=== PATIENT | female | born 1955 | race Caucasian/White ===

== ENCOUNTER 2019-05-28 11:26 | Emergency (ER) | payer MEDICARE, SELFPAY ==
[2019-05-28 11:44] VITALS: BP 123/72; PULSE 120; RESP 16; TEMP 38; O2SAT 98
--- NOTE | 2019-05-28 11:44 | ED.GENADULT ---
HPI - General Adult General Chief complaint: Upper Respiratory Infection Stated complaint: Congestion Time Seen by Provider: 05/28/19 11:45 Source: patient and RN notes reviewed Mode of arrival: ambulatory Limitations: no limitations History of Present Illness HPI narrative: 63-year-old female presents with complains of upper respiratory symptoms, sinus congestion and pressure, and dry cough for the past 7 days. No treatment. Symptom increase within the last 24 hours with tactile fever, sore throat, and constant dry cough. Rhinorrhea and nasal congestion. Sore throat bilateral. Hurts to swallow. No voice change. Tactile fevers without chills. No drooling, neck, or throat swelling. No chest pain, wheezing, or shortness of breath. No exacerbation factors. Denies nausea, vomiting, and abdominal pain. Tolerating liquids well. Menopausal. Some parts of this dictation were generated by voice recognition software and may contain typographical and/or grammatical inaccuracies. Related Data Home Medications Medication Instructions Recorded Confirmed atorvastatin 40 mg tablet 40 mg PO DAILY 03/04/19 05/28/19 ibandronate 150 mg tablet 150 mg PO MONTHLY 03/04/19 05/28/19 levothyroxine 175 mcg tablet 175 mcg PO DAILY 03/04/19 05/28/19 lisinopril 10 mg tablet 10 mg PO DAILY 03/04/19 05/28/19 metformin 500 mg tablet See Rx Instructions PO .COMPLEX 03/04/19 05/28/19 venlafaxine 75 mg capsule,extended 75 mg PO DAILY 03/04/19 05/28/19 release 24 hr ergocalciferol (vitamin D2) 50,000 unit WEEKLY 05/28/19 05/28/19 [Vitamin D2] Allergies Allergy/AdvReac Type Severity Reaction Status Date / Time Penicillins Allergy Unknown Rash Verified 05/28/19 11:32 Review of Systems Review of Systems: Narrative: CONSTITUTIONAL: Complains of fever. Denies chills, sweats. EYES: Denies visual changes, redness, discharge. ENT: Denies rhinorrhea, congestion, facial congestion and pressure, sore throat. Denies otalgia. CARDIOVASCULAR: Denies chest pain, palpitations, edema. RESPIRATORY: Denies dyspnea, wheezing. Complains of dry cough. GASTROINTESTINAL: Denies abdominal pain, nausea, vomiting, diarrhea. GENITOURINARY: Denies dysuria, hematuria, abnormal discharge. SKIN: Denies rash or itching. MUSCULOSKELETAL: Denies acute back pain, joint pain. Complains of myalgia. NEUROLOGIC: Denies numbness or focal weakness. PSYCHIATRIC: Denies anxiety or depression. All systems reviewed & are unremarkable except as noted in HPI and below. [facility] Past Medical History Medical History (Updated 06/05/19 @ 23:02 by JING Perez) delivery delivered Dyslipidemia Essential hypertension History of gastroesophageal reflux (GERD) Major depressive disorder Menopause GAYATHRI (obstructive sleep apnea) Osteoporosis Surgical History Surgical History (Updated 05/28/19 @ 12:06 by JING Perez) H/O section X3 History of toe surgery Left great toe Family History Family History Father Family history of diabetes mellitus in first degree relative Hypertension Sibling Family history of diabetes mellitus in first degree relative Mother Family history of emphysema Family history of chronic obstructive pulmonary disease Other Cerebrovascular accident Diabetes mellitus Social History Social History (Updated 05/28/19 @ 12:07 by JING Perez) Smoking status: Never smoker Second hand tobacco smoke exposure: No Alcohol intake: current Alcohol use details: Occasional Substance use: never Living arrangements: with family Occupation/Education: retired Gender identity (if verbalized by the patient): Female Comments At time of signature, agree with nurse past medical, surgical, social, and family history. There is no relevant family history pertinent to the presenting complaint. Exam Narrative: Exam Narrative: GENERAL
[2019-05-28 11:45] VITALS: BP 123/72; PULSE 120; RESP 16; TEMP 38; O2SAT 98
[2019-05-28 12:23] VITALS: PULSE 114; RESP 16; TEMP 37.9; O2SAT 98
== END 2019-05-28 12:23 | disposition home or self-care (01) ==
PROVIDERS: Emergency Provider Nurse Practitioner Family; PCP Internal Medicine
DX: J00 Acute nasopharyngitis [common cold] (principal); J01.90 Acute sinusitis, unspecified; I10 Essential (primary) hypertension; E78.5 Hyperlipidemia, unspecified
CPT/HCPCS: 87804; 99213; G0463

== ENCOUNTER → 2019-10-28 11:17 | Outpatient (CLI) | payer MEDICARE, SELFPAY ==
--- NOTE | ~2019-10-28 | DEXA_ITS ---
Bone Density Report Name: Paige De Leon Age: 63 Sex: Female Ethnicity: White Date of : 1955 Indication: osteopenia; height loss; hysterectomy; Referring Provider: MACIE BROWNING Study: Bone densitometry was performed. Exam Date: October 28, 2019 Accession number: [id number] Bone Density: Region BMD T-score Z-score Classification AP Spine (L1, L2) 0.746 -2.1 -0.4 Osteopenia Femoral Neck (Left) 0.627 -2.0 -0.4 Osteopenia Total Hip (Left) 0.799 -1.2 0.1 Osteopenia Femoral Neck (Right) 0.626 -2.0 -0.5 Osteopenia Total Hip (Right) 0.786 -1.3 0.0 Osteopenia Total Hip Mean 0.793 -1.3 0.1 Osteopenia World Health Organization criteria for BMD impression classify patients as: Normal (T-score at or above -1.0), Osteopenia (T-score between -1.0 and -2.5), or Osteoporosis (T-score at or below -2.5). 10-year Fracture Risk(1): Major Osteoporotic Fracture 10% Hip Fracture 1.5% Reported Risk Factors: [place] (), Neck BMD=0.626, BMI=29.0 (1) FRAX(R) Version 3.08. Fracture probability calculated for an untreated patient. Fracture probability may be lower if the patient has received treatment. Previous Exams: Region Exam Age BMD T-score BMD Change BMD Change Date g/cm2 vs Baseline vs Previous AP Spine(L1, L2) 10/28/2019 63 0.746 -2.1 -0.107* 0.002 10/03/2017 61 0.743 -2.1 -0.109* -0.081* 02/25/2010 54 0.825 -1.4 -0.028* -0.028* 03/11/2007 51 0.853 -1.1 Total Hip(Left) 10/28/2019 63 0.799 -1.2 -0.105* -0.006 10/03/2017 61 0.805 -1.1 -0.099* -0.027 02/25/2010 54 0.832 -0.9 -0.072* -0.072* 03/11/2007 51 0.903 -0.3 Total Hip(Right) 10/28/2019 63 0.786 -1.3 -0.181* 0.007 10/03/2017 61 0.779 -1.3 -0.188* -0.103* 02/25/2010 54 0.882 -0.5 -0.085* -0.085* 03/11/2007 51 0.967 0.2 *Denotes significance at 95% confidence level, LSC for AP Spine = 0.022 g/cm2, LSC for Total Hip = 0.027 g/cm2 Clinical Information Provided by Patient: Has used the following medications: Fosamax (i.e. alendronate), Vitamin D Has the following medical conditions: Hysterectomy Patient maximum height was 65 Menopause Age: 53 No regular weight bearing exercise Does not regularly consume dairy products Drinks caffeinated beverages Onset of menses at age 10 Number of children 3
== END ==
PROVIDERS: PCP Obstetrics & Gynecology Gynecology; Visit Provider Internal Medicine
DX: M85.89 Other specified disorders of bone density and structure, multiple sites (principal)
CPT/HCPCS: 77080

== ENCOUNTER 2019-11-05 12:19 | Outpatient (CLI) | payer MEDICARE, SELFPAY ==
--- NOTE | 2019-11-05 12:40 | ECG_ITS ---
Measurements Intervals [place] Rate: 89 P: 30 HI: 178 QRS: 62 QRSD: 88 T: 54 QT: 350 QTc: 428 Interpretive Statements SINUS RHYTHM DELAYED PRECORDIAL R/S TRANSITION BORDERLINE ECG Electronically Signed On 11-05-2019 12:52:42 CDT by Harpal Navarro D.O.
== END 2019-11-05 12:20 | disposition home or self-care (01) ==
PROVIDERS: PCP Internal Medicine; Visit Provider Internal Medicine
DX: R00.0 Tachycardia, unspecified (principal); I10 Essential (primary) hypertension; R94.31 Abnormal electrocardiogram [ECG] [EKG]
CPT/HCPCS: 93005

== ENCOUNTER 2019-11-12 06:58 | Outpatient (CLI) | payer MEDICARE, SELFPAY ==
[2019-11-12 08:51] LABS: Anion Gap 5 mmol/L (8-16); Blood Urea Nitrogen 16 mg/dL (7-17); Calcium 8.6 mg/dL (8.4-10.2); Carbon Dioxide 31 mmol/L (22-30); Chloride 99 mmol/L (98-107); Estimated Glomerular Filt Rate > 60; Glucose 214 mg/dL (65-105); Potassium 4.1 mmol/L (3.4-5.0); Sodium 135 mmol/L (137-145)
[2019-11-12 09:13] LABS: Thyroid Stimulating Hormone < 0.015 uIU/mL (0.465-4.680)
[2019-11-12 09:20] LABS: Hemoglobin A1C 8.3 % (<5.7)
[2019-11-12 09:24] LABS: Creatinine Urine 51.1 mg/dL
[2019-11-12 09:51] LABS: MALB Creatinine Ratio < 11.7 mg/g (0-30); Microalbumin Urine Random < 6.0 mg/L (0-16.7)
== END 2019-11-12 06:59 | disposition home or self-care (01) ==
LOC: ANHLAB 06:59
PROVIDERS: PCP Internal Medicine; Visit Provider Internal Medicine
DX: E03.9 Hypothyroidism, unspecified (principal); E11.9 Type 2 diabetes mellitus without complications
CPT/HCPCS: 36415; 80048; 82043; 83036; 84443

== ENCOUNTER 2020-02-23 07:03 | Outpatient (CLI) | payer MEDICARE, SELFPAY ==
[2020-02-23 07:38] LABS: Basophils Absolute Auto 0.1 K/mm3 (0.0-0.1); Eosinophils Absolute Auto 0.1 K/mm3 (0-0.3); Eosinophils Percent Auto 1.9 % (0-4.4); Hematocrit 38.2 % (37.0-47.0); Hemoglobin 12.7 g/dL (12.0-15.0); Immature Granulocyte Absolute 0.03 K/mm3 (0.00-0.031); Immature Granulocyte Percent A 0.5 % (0-0.5); Lymphocytes Absolute Auto 1.53 K/mm3 (0.9-3.2); Lymphocytes Percent Auto 24.3 % (18.3-44.2); Mean Corpuscular HGB Conc 33.2 g/dl (32-36); Mean Corpuscular Hemoglobin 30.4 pg (26-34); Mean Corpuscular Volume 91.4 fl (80-100); Mean Platelet Volume 9.2 fl (7.4-10.4); Monocytes Absolute Auto 0.5 K/mm3 (0.1-0.6); Monocytes Percent Auto 7.6 % (2.6-8.5); Neutrophils Absolute Auto 4.1 K/mm3 (1.3-6.7); Neutrophils Percent Auto 64.7 % (45.5-73.1); Platelet Count Result 293 k/mm3 (150-375); Red Blood Count 4.18 M/mm3 (4.2-5.4); Red Cell Distribution Width 11.9 % (11.5-14.5); White Blood Count 6.3 K/mm3 (4.5-10.0)
[2020-02-23 07:50] LABS: Alanine Aminotransferase 12 U/L (4-35); Albumin Level 3.6 g/dL (3.5-5.1); Alkaline Phosphatase 98 U/L (38-126); Anion Gap 5 mmol/L (8-16); Aspartate Amino Transferase 18 U/L (14-36); Bilirubin,Total 0.5 mg/dL (0.2-1.3); Blood Urea Nitrogen 20 mg/dL (7-17); Carbon Dioxide 31 mmol/L (22-30); Chloride 101 mmol/L (98-107); Cholesterol 142 mg/dL (0-200); Estimated Glomerular Filt Rate > 60; Glucose 159 mg/dL (65-105); HDL Direct 65 mg/dL; Sodium 137 mmol/L (137-145); Triglycerides 63 mg/dL (<150)
[2020-02-23 08:01] LABS: LDL Cholesterol Direct 60 mg/dL
[2020-02-23 08:20] LABS: Thyroid Stimulating Hormone 0.043 uIU/mL (0.465-4.680)
[2020-02-23 08:24] LABS: Creatinine Urine 52.7 mg/dL
[2020-02-23 08:38] LABS: Vitamin D 25 Hydroxy 57.5 ng/mL
[2020-02-23 08:49] LABS: MALB Creatinine Ratio < 11.4 mg/g (0-30); Microalbumin Urine Random < 6.0 mg/L (0-16.7)
== END 2020-02-23 07:04 | disposition home or self-care (01) ==
PROVIDERS: PCP Internal Medicine; Referring Provider Obstetrics & Gynecology Gynecology; Visit Provider Internal Medicine
DX: E03.9 Hypothyroidism, unspecified (principal); E11.9 Type 2 diabetes mellitus without complications; F32.5 Major depressive disorder, single episode, in full remission; I10 Essential (primary) hypertension; M81.0 Age-related osteoporosis without current pathological fracture; E78.2 Mixed hyperlipidemia; E55.9 Vitamin D deficiency, unspecified
CPT/HCPCS: 36415; 80053; 80061; 82043; 82306; 83036; 84443; 85025

== ENCOUNTER → 2020-05-03 15:21 | Outpatient (CLI) | payer MEDICARE, SELFPAY ==
--- NOTE | ~2020-05-03 | MM_ITS ---
EXAMINATION: MM screening neri BI w abdifatah HISTORY: Screening mammogram TECHNIQUE: Craniocaudal and mediolateral oblique 3-D tomosynthesis images were obtained and synthetic 2-D images were generated. CAD analysis was submitted and interpreted. COMPARISON: 02/25/2019, 10/03/2017 bilateral digital screening mammogram examinations BREAST PARENCHYMAL COMPOSITION: There are scattered areas of fibroglandular density. FINDINGS: There is no evidence of suspicious mass, calcification, or architectural distortion to sugg est malignancy in either breast. There has been no suspicious interval change. IMPRESSION: 1. No mammographic evidence of malignancy. 2. Recommend routine screening mammography in one year. BI-RADS Category 1: Negative Reviewed, dictated and finalized at location A. SLAUGHTERER
== END ==
PROVIDERS: PCP Internal Medicine; Visit Provider Obstetrics & Gynecology Gynecology
DX: Z12.31 Encounter for screening mammogram for malignant neoplasm of breast (principal)
CPT/HCPCS: 77063; 77067

== ENCOUNTER 2020-05-19 09:14 | Outpatient (CLI) | payer MEDICARE, SELFPAY | END 2020-05-19 09:15 | disposition home or self-care (01) | LOC: ANHLAB 09:15 | PROVIDERS: PCP Internal Medicine; Visit Provider Internal Medicine | DX: E03.9 Hypothyroidism, unspecified (principal) | CPT/HCPCS: 36415; 84443 ==

== ENCOUNTER 2020-11-22 16:40 | Outpatient (CLI) | payer MEDICARE, SELFPAY ==
[2020-11-22 17:01] LABS: Hematocrit 40.2 % (37.0-47.0); Mean Corpuscular HGB Conc 32.3 g/dl (32-36); Mean Corpuscular Hemoglobin 29.9 pg (26-34); Mean Corpuscular Volume 92.4 fl (80-100); Mean Platelet Volume 9.4 fl (7.4-10.4); Platelet Count Result 357 k/mm3 (150-375); Red Blood Count 4.35 M/mm3 (4.2-5.4); White Blood Count 8.1 K/mm3 (4.5-10.0)
[2020-11-22 17:10] LABS: Alanine Aminotransferase 14 U/L (4-35); Albumin Level 4.2 g/dL (3.5-5.1); Alkaline Phosphatase 110 U/L (38-126); Anion Gap 7 mmol/L (8-16); Aspartate Amino Transferase 20 U/L (14-36); Bilirubin,Total 0.7 mg/dL (0.2-1.3); Blood Urea Nitrogen 17 mg/dL (7-17); Calcium 9.5 mg/dL (8.4-10.2); Carbon Dioxide 28 mmol/L (22-30); Chloride 99 mmol/L (98-107); Estimated Glomerular Filt Rate > 60; Glucose 138 mg/dL (65-110); Potassium 4.5 mmol/L (3.4-5.0); Sodium 134 mmol/L (137-145)
[2020-11-22 17:38] LABS: Creatinine Urine 50.6 mg/dL
[2020-11-22 17:43] LABS: MALB Creatinine Ratio < 11.9 mg/g (0-30); Microalbumin Urine Random < 6.0 mg/L (0-16.7)
[2020-11-22 18:06] LABS: Hemoglobin A1C 7.7 % (<5.7)
== END 2020-11-22 16:41 | disposition home or self-care (01) ==
PROVIDERS: PCP Internal Medicine; Visit Provider Internal Medicine
DX: E78.5 Hyperlipidemia, unspecified (principal); I10 Essential (primary) hypertension; G25.0 Essential tremor; E03.9 Hypothyroidism, unspecified; E11.9 Type 2 diabetes mellitus without complications
CPT/HCPCS: 36415; 80053; 82043; 83036; 84443; 85027

== ENCOUNTER 2021-02-23 07:35 | Outpatient (CLI) | payer MEDICARE, SELFPAY ==
[2021-02-23 08:52] LABS: Hemoglobin A1C 7.5 % (<5.7)
[2021-02-23 10:40] LABS: MALB Creatinine Ratio 14.9 mg/g (0-30); Microalbumin Urine Random 8.5 mg/L (0-16.7)
== END 2021-02-23 07:36 | disposition home or self-care (01) ==
LOC: ANHLAB 07:36
PROVIDERS: PCP Internal Medicine; Visit Provider Internal Medicine
DX: E11.9 Type 2 diabetes mellitus without complications (principal)
CPT/HCPCS: 36415; 82043; 83036

== ENCOUNTER 2021-06-12 14:39 | Emergency (ER) | payer MEDICARE, SELFPAY ==
[2021-06-12 14:59] VITALS: BP 104/72; PULSE 73; RESP 18; TEMP 36.2; O2SAT 99
--- NOTE | 2021-06-12 15:26 | ED.URI ---
HPI - URI/Sore Throat General Chief Complaint: Upper Respiratory Infection Stated Complaint: sorethroat,nasal drainage Time Seen by Provider: 06/12/21 15:30 Source: patient, RN notes reviewed and old records reviewed Mode of arrival: ambulatory Limitations: no limitations History of Present Illness HPI Narrative: 65-year-old female who presents to [facility] with complaints of sore throat and nasal drainage for 2 weeks with some ear pain. For the past 3 days patient states that she has had the chills and cough but the sore throat and ear pain has improved. Patient states that she has not had a fever that she knows of, she checks her temperature daily at her job. Patient reports that she has been taking Mucinex and also some Ibuprofen for her symptoms. Patient works in a day care. Patient reports that she has had COVID immunizations and flu shot this year. MD elicited complaint: sore throat, rhinorrhea and nasal congestion Onset (ago): week(s) (2) Consistency: progressively worsening Related Data Home Medications Medication Instructions Recorded Confirmed ergocalciferol (vitamin D2) 50,000 unit PO WEEKLY 06/12/21 06/12/21 levothyroxine 150 mcg PO DAILY 06/12/21 06/12/21 itasjypvytoo-rxyeitzf-dywpsx 1 tablet PO DAILY 06/12/21 06/12/21 [Centrum Silver] propranolol 80 mg PO BID 06/12/21 06/12/21 Allergies Allergy/AdvReac Type Severity Reaction Status Date / Time Penicillins Allergy Unknown Rash Verified 06/12/21 15:16 Review of Systems Review of Systems: CONSTITUTIONAL: Denies fever,positive chills, or sweats. EYES: Denies visual changes, redness, or discharge. ENT: Positive for rhinorrhea, congestion, sore throat, or otalgia, sinus pressure to face CARDIOVASCULAR: Denies chest pain, palpitations, or edema. RESPIRATORY: Positive for cough denies any dyspnea. GASTROINTESTINAL: Denies abdominal pain, nausea, vomiting, or diarrhea. GENITOURINARY: Denies dysuria or hematuria. SKIN: Denies rash or itching. MUSCULOSKELETAL: Denies back pain, joint pain, or myalgia. NEUROLOGIC: Denies headache, numbness, or weakness. PSYCHIATRIC: Positive for history of anxiety or depression. All systems reviewed & are unremarkable except as noted in HPI and below PMFSH Past Medical History Medical History (Updated 06/13/21 @ 00:01 by Caitlyn Maldonado) Adult hypothyroidism Age-related osteoporosis without current pathological fracture Back pain without radiation Benign essential hypertension Bilateral impacted cerumen BMI 33.0-33.9,adult Body mass index [BMI] 29.0-29.9, adult (01/04/19) Body mass index [BMI] 32.0-32.9, adult (11/27/16) Breast cancer screening delivery delivered Colon cancer screening DM w/o complication type II DM w/o complication type II, uncontrolled Dyslipidemia Dyslipidemia associated with type 2 diabetes mellitus Encounter for routine adult health examination without abnormal findings Essential hypertension Familial tremor Gastroesophageal reflux disease with esophagitis History of gastroesophageal reflux (GERD) Hypovitaminosis D Major depressive disorder Major depressive disorder with single episode, in full remission Menopause On longwall headgate operator drug therapy GAYATHRI (obstructive sleep apnea) Osteoporosis Other and unspecified hyperlipidemia Pre-operative clearance Radicular low back pain Seasonal allergies Upper respiratory tract infection Urinary tract infection without hematuria Surgical History Surgical History (Updated 06/12/21 @ 15:40 by Marley Bojorquez NP) H/O section X3 History of hysterectomy History of toe surgery Left great toe Family History Family History Father Family history of diabetes mellitus in first degree relative Hypertension Sibling Family history of diabetes mellitus in first degree relative Mother Family history of emphysema Family history of chronic obstructive pulmonary disease Other Cerebrovascular
== END 2021-06-12 15:49 | disposition home or self-care (01) ==
PROVIDERS: Emergency Provider Registered Nurse; PCP Internal Medicine
DX: J32.9 Chronic sinusitis, unspecified (principal); E03.9 Hypothyroidism, unspecified; M81.0 Age-related osteoporosis without current pathological fracture; I10 Essential (primary) hypertension; E11.9 Type 2 diabetes mellitus without complications; E78.5 Hyperlipidemia, unspecified; G47.33 Obstructive sleep apnea (adult) (pediatric); F32.9 Major depressive disorder, single episode, unspecified
CPT/HCPCS: 99213; G0463

== ENCOUNTER 2021-06-29 07:03 | Outpatient (CLI) | payer MEDICARE, SELFPAY ==
[2021-06-29 07:41] LABS: Basophils Percent Auto 0.7 % (0.2-1.2); Eosinophils Absolute Auto 0.3 K/mm3 (0-0.3); Eosinophils Percent Auto 4.7 % (0-4.4); Hematocrit 40.1 % (37.0-47.0); Hemoglobin 13.1 g/dL (12.0-15.0); Immature Granulocyte Absolute 0.03 K/mm3 (0.00-0.031); Immature Granulocyte Percent A 0.5 % (0-0.5); Lymphocytes Absolute Auto 1.36 K/mm3 (0.9-3.2); Lymphocytes Percent Auto 22.7 % (18.3-44.2); Mean Corpuscular HGB Conc 32.7 g/dl (32-36); Mean Corpuscular Hemoglobin 30.3 pg (26-34); Mean Corpuscular Volume 92.6 fl (80-100); Mean Platelet Volume 9.8 fl (7.4-10.4); Monocytes Absolute Auto 0.5 K/mm3 (0.1-0.6); Monocytes Percent Auto 8.2 % (2.6-8.5); Neutrophils Absolute Auto 3.8 K/mm3 (1.3-6.7); Neutrophils Percent Auto 63.2 % (45.5-73.1); Platelet Count Result 328 k/mm3 (150-375); Red Blood Count 4.33 M/mm3 (4.2-5.4); Red Cell Distribution Width 12.4 % (11.5-14.5)
[2021-06-29 07:56] LABS: Alanine Aminotransferase 12 U/L (4-35); Albumin Level 4.1 g/dL (3.5-5.1); Alkaline Phosphatase 100 U/L (38-126); Anion Gap 8 mmol/L (8-16); Aspartate Amino Transferase 22 U/L (14-36); Bilirubin,Total 0.6 mg/dL (0.2-1.3); Blood Urea Nitrogen 24 mg/dL (7-17); Calcium 8.6 mg/dL (8.4-10.2); Carbon Dioxide 26 mmol/L (22-30); Chloride 101 mmol/L (98-107); Cholesterol 155 mg/dL (0-200); Estimated Glomerular Filt Rate > 60; Glucose 150 mg/dL (65-110); HDL Direct 59 mg/dL; Potassium 4.2 mmol/L (3.4-5.0); Sodium 135 mmol/L (137-145); Triglycerides 83 mg/dL (<150)
[2021-06-29 07:59] LABS: Hemoglobin A1C 7.1 % (<5.7)
[2021-06-29 08:07] LABS: LDL Cholesterol Direct 65 mg/dL
[2021-06-29 08:27] LABS: Thyroid Stimulating Hormone 0.685 uIU/mL (0.465-4.680)
[2021-06-29 08:48] LABS: Vitamin D 25 Hydroxy 68.8 ng/mL
[2021-06-29 09:55] LABS: MALB Creatinine Ratio < 11.8 mg/g (0-30); Microalbumin Urine Random < 6.0 mg/L (0-16.7)
== END 2021-06-29 07:04 | disposition home or self-care (01) ==
PROVIDERS: PCP Internal Medicine; Visit Provider Internal Medicine
DX: F32.5 Major depressive disorder, single episode, in full remission (principal); E03.9 Hypothyroidism, unspecified; E11.9 Type 2 diabetes mellitus without complications; E78.2 Mixed hyperlipidemia; G25.0 Essential tremor; I10 Essential (primary) hypertension; M81.0 Age-related osteoporosis without current pathological fracture; E55.9 Vitamin D deficiency, unspecified
CPT/HCPCS: 36415; 80053; 80061; 82043; 82306; 83036; 84443; 85025

== ENCOUNTER 2021-10-03 15:19 | Outpatient (CLI) | payer MEDICARE, SELFPAY ==
[2021-10-03 15:56] LABS: Alanine Aminotransferase 12 U/L (6-35); Aspartate Amino Transferase 19 U/L (14-36)
== END 2021-10-03 15:20 | disposition home or self-care (01) ==
LOC: ANHLAB 15:23
PROVIDERS: PCP Internal Medicine; Visit Provider Podiatrist Foot & Ankle Surgery
DX: B35.1 Tinea unguium (principal)
CPT/HCPCS: 36415; 84450; 84460

== ENCOUNTER 2021-12-31 16:23 | Emergency (ER) | payer MEDICARE, SELFPAY ==
[2021-12-31 16:35] VITALS: BP 113/60; PULSE 100; RESP 18; TEMP 36.2; O2SAT 99
--- NOTE | 2021-12-31 16:49 | ED.GENADULT ---
HPI - General Adult General Chief complaint: Upper Respiratory Infection Stated complaint: nasal pain,dizziness History of Present Illness HPI narrative: 66 y/o female. PMHx Hypothyroid, HTN, Dyslipidemia, DM II. Presents to [facility] today with acute complaints of nasal congestion, maxillary facial pressure, thick nasal discharge, and non-productive cough for > the past 10 days. She reports sub-therapeutic reliefs with home OTC remedies. No fever, chills. Has had intermittent dizziness this AM, of which has since improved. No BEARD, focal weakness. Denies chest pain, palpitations, dyspnea, edema. No GI concerns, N/V. No additional acute c/o upon PE. Related Data Home Medications Medication Instructions Recorded Confirmed ergocalciferol (vitamin D2) 1,250 50,000 unit PO WEEKLY 06/12/21 12/31/21 mcg (50,000 unit) capsule terbinafine HCl 250 mg tablet 250 mg PO DAILY 07/23/21 12/31/21 Allergies Allergy/AdvReac Type Severity Reaction Status Date / Time Penicillins Allergy Unknown Rash Verified 12/31/21 16:45 Review of Systems Review of Systems: CONSTITUTIONAL: Denies fever, chills, sweats. EYES: Denies visual changes, redness, discharge. ENT: Positive rhinorrhea, congestion. No sore throat, otalgia. CARDIOVASCULAR: Denies chest pain, palpitations, edema. RESPIRATORY: Denies dyspnea, wheezing. Positive cough GASTROINTESTINAL: Denies abdominal pain, nausea, vomiting, diarrhea. GENITOURINARY: Denies dysuria, hematuria, abnormal discharge SKIN: Denies rash or itching. MUSCULOSKELETAL: Denies acute back pain, joint pain, or myalgia. NEUROLOGIC: Denies numbness, or focal weakness. PSYCHIATRIC: Denies anxiety or depression. [facility] Past Medical History Medical History Adult hypothyroidism Age-related osteoporosis without current pathological fracture Back pain without radiation Benign essential hypertension Bilateral impacted cerumen BMI 33.0-33.9,adult Body mass index [BMI] 29.0-29.9, adult (01/04/19) Body mass index [BMI] 32.0-32.9, adult (11/27/16) Breast cancer screening delivery delivered Colon cancer screening DM w/o complication type II DM w/o complication type II, uncontrolled Dyslipidemia Dyslipidemia associated with type 2 diabetes mellitus Encounter for routine adult health examination without abnormal findings Essential hypertension Familial tremor Gastroesophageal reflux disease with esophagitis History of gastroesophageal reflux (GERD) Hypovitaminosis D Major depressive disorder Major depressive disorder with single episode, in full remission Menopause On exterminator helper drug therapy GAYATHRI (obstructive sleep apnea) Osteoporosis Other and unspecified hyperlipidemia Pre-operative clearance Radicular low back pain Seasonal allergies Upper respiratory tract infection Urinary tract infection without hematuria Surgical History Surgical History H/O section X3 History of hysterectomy History of toe surgery Left great toe Family History Family History Father Family history of diabetes mellitus in first degree relative Hypertension Sibling Family history of diabetes mellitus in first degree relative Mother Family history of emphysema Family history of chronic obstructive pulmonary disease Other Cerebrovascular accident Diabetes mellitus Social History Social History Second hand tobacco smoke exposure: No Alcohol intake: current Alcohol use details: Occasional Substance use: never Gender identity (if verbalized by the patient): Female Exam Narrative: GENERAL: This is a well-nourished, well-developed adult, in no apparent distress. HEAD: normocephalic, atraumatic. EYES: PERRL. Sclera clear/white. EOM intact. No nystagmu
== END 2021-12-31 16:53 | disposition home or self-care (01) ==
PROVIDERS: Emergency Provider Nurse Practitioner Adult Health
DX: J32.9 Chronic sinusitis, unspecified (principal); J06.9 Acute upper respiratory infection, unspecified; E03.9 Hypothyroidism, unspecified; M81.0 Age-related osteoporosis without current pathological fracture; I10 Essential (primary) hypertension; E11.9 Type 2 diabetes mellitus without complications; E78.5 Hyperlipidemia, unspecified; K21.9 Gastro-esophageal reflux disease without esophagitis; G47.33 Obstructive sleep apnea (adult) (pediatric); E55.9 Vitamin D deficiency, unspecified; Z79.84 Long term (current) use of oral hypoglycemic drugs; F32.9 Major depressive disorder, single episode, unspecified
CPT/HCPCS: 99213; G0463

== ENCOUNTER 2022-01-31 12:54 | Outpatient (CLI) | payer MEDICARE, SELFPAY ==
[2022-01-31 15:03] LABS: Vitamin D 25 Hydroxy 39.1 ng/mL
== END 2022-01-31 12:55 | disposition home or self-care (01) ==
PROVIDERS: Visit Provider Obstetrics & Gynecology Gynecology
DX: E55.9 Vitamin D deficiency, unspecified (principal)
CPT/HCPCS: 36415; 82306

== ENCOUNTER 2022-02-15 07:10 | Outpatient (CLI) | payer MEDICARE, SELFPAY ==
[2022-02-15 07:47] LABS: Alanine Aminotransferase 19 U/L (6-35); Albumin Level 4.4 g/dL (3.5-5.1); Alkaline Phosphatase 120 U/L (38-126); Anion Gap 8 mmol/L (8-16); Aspartate Amino Transferase 25 U/L (14-36); Bilirubin,Total 0.4 mg/dL (0.2-1.3); Blood Urea Nitrogen 19 mg/dL (7-17); Calcium 9.1 mg/dL (8.4-10.2); Carbon Dioxide 26 mmol/L (22-30); Chloride 100 mmol/L (98-107); Cholesterol 189 mg/dL (0-200); Estimated Glomerular Filt Rate > 60; Glucose 185 mg/dL (65-110); HDL Direct 66 mg/dL; Potassium 4.7 mmol/L (3.4-5.0); Sodium 134 mmol/L (137-145); Triglycerides 92 mg/dL (<150)
[2022-02-15 07:57] LABS: LDL Cholesterol Direct 88 mg/dL
[2022-02-15 08:23] LABS: Hemoglobin A1C 8.6 % (<5.7)
[2022-02-15 08:43] LABS: Creatinine Urine 57.7 mg/dL
[2022-02-15 09:13] LABS: MALB Creatinine Ratio < 10.4 mg/g (0-30); Microalbumin Urine Random < 6.0 mg/L (0-16.7)
== END 2022-02-15 07:11 | disposition home or self-care (01) ==
PROVIDERS: Visit Provider Internal Medicine
DX: I10 Essential (primary) hypertension (principal); E03.9 Hypothyroidism, unspecified; E11.9 Type 2 diabetes mellitus without complications; E78.5 Hyperlipidemia, unspecified
CPT/HCPCS: 36415; 80053; 80061; 82043; 83036; 84439; 84443

== ENCOUNTER 2022-04-24 09:26 | Emergency (ER) | payer MEDICARE, SELFPAY ==
[2022-04-24 09:38] VITALS: BP 115/64; PULSE 73; RESP 16; TEMP 35.6; O2SAT 98
--- NOTE | 2022-04-24 10:07 | ED.URI ---
HPI - URI/Sore Throat General Chief Complaint: Upper Respiratory Infection Stated Complaint: sorethroat,cough Time Seen by Provider: 04/24/22 10:08 Source: patient and RN notes reviewed Mode of arrival: ambulatory Limitations: no limitations History of Present Illness HPI Narrative: 66-year-old female with hx DM and HTN presented for complaint of sore throat for 10 days. She also endorses postnasal drainage and sinus pressure, occasional nonproductive cough. She denies shortness of breath, wheezing, nausea, vomiting, diarrhea, fevers or chills. She has not taken anything for symptoms. She endorses sore throat feels better today. 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 MD elicited complaint: cough Related Data Home Medications Medication Instructions Recorded Confirmed ergocalciferol (vitamin D2) 1,250 50,000 unit PO WEEKLY 06/12/21 04/24/22 mcg (50,000 unit) capsule terbinafine HCl 250 mg tablet 250 mg PO DAILY 07/23/21 04/24/22 levothyroxine 137 mcg tablet 125 mcg PO DAILY 04/24/22 04/24/22 Allergies Allergy/AdvReac Type Severity Reaction Status Date / Time Penicillins Allergy Unknown Rash Verified 04/24/22 10:03 Review of Systems Review of Systems: per HPI [facility] Past Medical History Medical History Adult hypothyroidism Age-related osteoporosis without current pathological fracture Back pain without radiation Benign essential hypertension Bilateral impacted cerumen BMI 33.0-33.9,adult Body mass index [BMI] 29.0-29.9, adult (01/04/19) Body mass index [BMI] 32.0-32.9, adult (11/27/16) Breast cancer screening delivery delivered Colon cancer screening DM w/o complication type II DM w/o complication type II, uncontrolled Dyslipidemia Dyslipidemia associated with type 2 diabetes mellitus Encounter for routine adult health examination without abnormal findings Essential hypertension Familial tremor Gastroesophageal reflux disease with esophagitis History of gastroesophageal reflux (GERD) Hypovitaminosis D Major depressive disorder Major depressive disorder with single episode, in full remission Menopause On intermediate school teacher drug therapy GAYATHRI (obstructive sleep apnea) Osteoporosis Other and unspecified hyperlipidemia Pre-operative clearance Radicular low back pain Seasonal allergies Upper respiratory tract infection Urinary tract infection without hematuria Surgical History Surgical History H/O section X3 History of hysterectomy History of toe surgery Left great toe Family History Family History Father Family history of diabetes mellitus in first degree relative Hypertension Sibling Family history of diabetes mellitus in first degree relative Mother Family history of emphysema Family history of chronic obstructive pulmonary disease Other Cerebrovascular accident Diabetes mellitus Social History Social History Smoking status: Former smoker Second hand tobacco smoke exposure: No Alcohol intake: current Alcohol use details: Occasional Substance use: never Lack of Transportation: No Lack of Food: Never True Current Housing: I Have Housing Concerned About Future Housing: No Difficulty Paying Gas/Electric Bills: No Difficulty Paying for Meds: YES Currently Unemployed: No Education: Master's Degree or Higher Difficulty w/ Childcare or Family Care: No Living arrangements: with family Occupation/Education: retired Gender identity (if verbalized by the patient): Female Exam Narrative: GENERAL: well-appearing EYES: conjunctivae clear ENT: Mucous membranes moist. Mild hoarse voice. Oropharynx erythematous without lesions or exudate, no drooling, no trismus, uvula midline. No tripod positioning
== END 2022-04-24 10:35 | disposition home or self-care (01) ==
PROVIDERS: Emergency Provider Nurse Practitioner Family; PCP Internal Medicine
DX: J02.0 Streptococcal pharyngitis (principal); Z87.891 Personal history of nicotine dependence; E03.9 Hypothyroidism, unspecified; M81.0 Age-related osteoporosis without current pathological fracture; I10 Essential (primary) hypertension; E11.9 Type 2 diabetes mellitus without complications; E78.5 Hyperlipidemia, unspecified; K21.00 Gastro-esophageal reflux disease with esophagitis, without bleeding; F32.9 Major depressive disorder, single episode, unspecified
CPT/HCPCS: 87880; 99213; G0463

== ENCOUNTER → 2022-04-30 13:01 | Outpatient (CLI) | payer MEDICARE, SELFPAY ==
--- NOTE | ~2022-04-30 | DEXA_ITS ---
Bone Density Report Name: JOSE LUIS TINOCO Age: 66 Sex: Female Ethnicity: White Date of : 1955 Indication: osteopenia; height loss; hysterectomy; postmenopausal Referring Provider: DOM ALANIS Study: Bone densitometry was performed. Exam Date: April 30, 2022 Accession number: [id number] Bone Density: Region BMD T-score Z-score Classification AP Spine (L1, L2) 0.697 -2.6 -0.7 Osteoporosis Femoral Neck (Left) 0.614 -2.1 -0.4 Osteopenia Total Hip (Left) 0.778 -1.3 0.1 Osteopenia Femoral Neck (Right) 0.605 -2.2 -0.5 Osteopenia Total Hip (Right) 0.758 -1.5 -0.1 Osteopenia Total Hip Mean 0.768 -1.4 0.0 Osteopenia World Health Organization criteria for BMD impression classify patients as: Normal (T-score at or above -1.0), Osteopenia (T-score between -1.0 and -2.5), or Osteoporosis (T-score at or below -2.5). 10-year Fracture Risk: FRAX not reported because: Some T-score for Spine Total or Hip Total or Femoral Neck at or below -2.5 Previous Exams: Region Exam Age BMD T-score BMD Change BMD Change Date g/cm2 vs Baseline vs Previous AP Spine(L1, L2) 04/30/2022 66 0.697 -2.6 -0.156* -0.049* 10/28/2019 63 0.746 -2.1 -0.107* 0.002 10/03/2017 61 0.743 -2.1 -0.109* -0.081* 02/25/2010 54 0.825 -1.4 -0.028* -0.028* 03/11/2007 51 0.853 -1.1 Total Hip(Left) 04/30/2022 66 0.778 -1.3 -0.126* -0.021 10/28/2019 63 0.799 -1.2 -0.105* -0.006 10/03/2017 61 0.805 -1.1 -0.099* -0.027 02/25/2010 54 0.832 -0.9 -0.072* -0.072* 03/11/2007 51 0.903 -0.3 Total Hip(Right) 04/30/2022 66 0.758 -1.5 -0.209* -0.028* 10/28/2019 63 0.786 -1.3 -0.181* 0.007 10/03/2017 61 0.779 -1.3 -0.188* -0.103* 02/25/2010 54 0.882 -0.5 -0.085* -0.085* 03/11/2007 51 0.967 0.2 *Denotes significance at 95% confidence level, LSC for AP Spine = 0.022 g/cm2, LSC for Total Hip = 0.027 g/cm2 Clinical Information Provided by Patient: Has used the following medications: Vitamin D Has the following medical conditions: Hysterectomy Patient maximum height was 65 Menopause Age: 53 No regular weight bearing exercise Does not regularly consume dairy products Drinks caffeinated beverages Onset of menses at age 10 Number of children 3
--- NOTE | ~2022-04-30 | MM_ITS ---
EXAMINATION: MM screening neri BI w abdifatah HISTORY: Screening mammogram TECHNIQUE: Craniocaudal and mediolateral oblique 3-D tomosynthesis images were obtained and synthetic 2-D images were generated. CAD analysis was submitted and interpreted. COMPARISON: May 03, 2020, February 25, 2019, October 03, 2017 bilateral screening mammogram examinat ions BREAST PARENCHYMAL COMPOSITION: The breasts are almost entirely fatty. FINDINGS: There is no evidence of suspicious mass, calcification, or architectural distortion to sugg est malignancy in either breast. There has been no suspicious interval change. IMPRESSION: 1. No mammographic evidence of malignancy. 2. Recommend routine screening mammography in one year. BI-RADS Category 1: Negative Reviewed, dictated and finalized at location A. SCAPE SUPERVISOR
== END ==
PROVIDERS: PCP Internal Medicine; Visit Provider Obstetrics & Gynecology Gynecology
DX: Z12.31 Encounter for screening mammogram for malignant neoplasm of breast (principal); Z78.0 Asymptomatic menopausal state; M85.88 Other specified disorders of bone density and structure, other site; M81.0 Age-related osteoporosis without current pathological fracture; M85.852 Other specified disorders of bone density and structure, left thigh; M85.851 Other specified disorders of bone density and structure, right thigh
CPT/HCPCS: 77063; 77067; 77080

== ENCOUNTER 2022-07-03 14:06 | Outpatient (CLI) | payer MEDICARE, SELFPAY | END 2022-07-03 14:07 | disposition home or self-care (01) | PROVIDERS: PCP Family Medicine; Visit Provider Family Medicine | DX: E03.9 Hypothyroidism, unspecified (principal) | CPT/HCPCS: 36415; 84443 ==

== ENCOUNTER 2022-08-30 10:12 | Emergency (ER) | payer MEDICARE, SELFPAY ==
[2022-08-30 10:27] VITALS: BP 144/83; PULSE 61; RESP 18; TEMP 36.1; O2SAT 100
--- NOTE | 2022-08-30 10:44 | ED.URI ---
HPI - URI/Sore Throat General Chief Complaint: Upper Respiratory Infection Stated Complaint: sorethroat Time Seen by Provider: 08/30/22 10:38 Source: patient and RN notes reviewed Mode of arrival: ambulatory Limitations: no limitations History of Present Illness HPI Narrative: Patient presents today with a 3 day history of sore throat. States she does have some congestion and postnasal drip, but these are related to her seasonal allergies and have been present for a while now. She currently rates her sore throat 10/30 and has been taking some Mucinex with mild relief. She also takes Claritin daily for her seasonal allergies. Denies fever, rhinorrhea, cough. Related Data Home Medications Medication Instructions Recorded Confirmed atorvastatin 40 mg tablet mg 08/30/22 dapagliflozin 10 mg tablet 10 mg PO DAILY 08/30/22 08/30/22 ([facility]) ergocalciferol (vitamin D2) 1,250 08/30/22 mcg (50,000 unit) capsule levothyroxine 137 mcg tablet mcg 08/30/22 lisinopril 10 mg tablet mg 08/30/22 metformin 500 mg tablet,extended mg PO 08/30/22 release 24 hr omeprazole 40 mg capsule,delayed mg 08/30/22 release propranolol 80 mg tablet mg 08/30/22 terbinafine HCl 250 mg tablet mg 08/30/22 venlafaxine 75 mg capsule,extended mg PO 08/30/22 release 24 hr zoledronic acid 5 mg/100 mL in 5 mg IV ONCE 08/30/22 08/30/22 mannitol 5 %-water intravenous piggybck (Reclast) Allergies Allergy/AdvReac Type Severity Reaction Status Date / Time Penicillins Allergy Unknown Rash Verified 08/30/22 10:31 Review of Systems Review of Systems: CONSTITUTIONAL: Denies body aches, fever, chills, or sweats. EYES: Denies visual changes, redness, or discharge. ENT: Denies rhinorrhea, or otalgia.+ sore throat, congestion, postnasal drip CARDIOVASCULAR: Denies chest pain, palpitations, or edema. RESPIRATORY: Denies cough or dyspnea. GASTROINTESTINAL: Denies abdominal pain, nausea, vomiting, or diarrhea. GENITOURINARY: Denies dysuria or hematuria. SKIN: Denies rash, itching, or wounds. MUSCULOSKELETAL: Denies back pain, joint pain, or myalgia. NEUROLOGIC: Denies headache, numbness, tingling, or weakness. PSYCH: Denies depression or anxiety. FOR[facility]LY [facility] Past Medical History Medical History Adult hypothyroidism Age-related osteoporosis without current pathological fracture Back pain without radiation Benign essential hypertension Bilateral impacted cerumen BMI 33.0-33.9,adult Body mass index [BMI] 29.0-29.9, adult (01/04/19) Body mass index [BMI] 32.0-32.9, adult (11/27/16) Breast cancer screening delivery delivered Colon cancer screening DM w/o complication type II DM w/o complication type II, uncontrolled Dyslipidemia Dyslipidemia associated with type 2 diabetes mellitus Encounter for routine adult health examination without abnormal findings Essential hypertension Familial tremor Gastroesophageal reflux disease with esophagitis History of gastroesophageal reflux (GERD) Hypovitaminosis D Major depressive disorder Major depressive disorder with single episode, in full remission Menopause On halfway drug therapy GAYATHRI (obstructive sleep apnea) Osteoporosis Other and unspecified hyperlipidemia Pre-operative clearance Radicular low back pain Seasonal allergies Upper respiratory tract infection Urinary tract infection without hematuria Surgical History Surgical History H/O section X3 History of hysterectomy History of toe surgery Left great toe Family History Family History Father Family history of diabetes mellitus in first degree relative Hypertension Sibling Family history of diabetes mellitus in first degree relative Mother Family history of emphysema Family history of chronic obstructive pulmonary disease Oth
== END 2022-08-30 10:53 | disposition home or self-care (01) ==
PROVIDERS: Emergency Provider Nurse Practitioner; PCP Family Medicine
DX: K12.0 Recurrent oral aphthae (principal); J30.2 Other seasonal allergic rhinitis; Z87.891 Personal history of nicotine dependence; E03.9 Hypothyroidism, unspecified; M81.0 Age-related osteoporosis without current pathological fracture; I10 Essential (primary) hypertension; E11.9 Type 2 diabetes mellitus without complications; K21.9 Gastro-esophageal reflux disease without esophagitis
CPT/HCPCS: 87081; 87880; 99213; G0463

== ENCOUNTER 2023-04-02 14:07 | Emergency (ER) | payer MEDICARE, SELFPAY ==
[2023-04-02] VITALS (8 sets, daily range): BP systolic 106–161; BP diastolic 78–94; PULSE 77–96; RESP 12–16; TEMP 36.6–36.8; O2SAT 96–100
--- NOTE | ~2023-04-02 | CT_ITS ---
EXAMINATION: CTA brain carotid DATE: 04/02/2023 15:39 INDICATION: Expressive aphasia. Right arm dysmetria. TECHNIQUE: Computed tomographic angiography (CTA) of the head was performed with 100 mL Omnipaque-350 intravenous contrast. CTA of the neck was performed with intravenous contrast. Automated exposure co ntrol and iterative reconstruction technique were employed. The dose-length product was 1092.65 mGy-c m. Maximum intensity projection and volume rendered 3D-reconstructions were created by the technologi st on a separate workstation. COMPARISON: Head CT 04/02/2023 FINDINGS: HEAD CTA: There are old infarcts involving the right basal ganglia and anterior limb right internal c apsule. There is no intracranial hemorrhage, acute infarction, or abnormal intracranial mass lesion. The ventricles are normal in size. The orbits are normal. The paranasal sinuses are clear. There are small bilateral mastoid effusions. The vertebral arteries are codominant. There is no significant irma nosis of basilar artery or the posterior cerebral arteries. The posterior communicating arteries are normal. There is moderate stenosis of the supraclinoid right internal carotid artery. There is no sig nificant stenosis of the anterior or middle cerebral arteries. Anterior communicating artery is tiffanie l. There is no aneurysm. NECK CTA: There is an aberrant right subclavian artery. There is no significant stenosis of the verte bral arteries. There is plaque in the proximal internal carotid arteries. There is 0% stenosis of the proximal right internal carotid artery relative to normal distal artery lumen diameter (NASCET crite ammy). There is 0% stenosis of the proximal left internal carotid artery relative to normal distal art lisa lumen diameter. There is ectasia of ascending aorta measuring 4.0 cm. There is severe cervical an d thoracic spondylosis. IMPRESSION: 1. 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 2. Moderate stenosis of supraclinoid right internal carotid artery. 3. 0% stenosis of the proximal internal carotid arteries relative to normal distal artery lumen diame ters (NASCET criteria). Reviewed, dictated and finalized at location A. CIATE CONSULTING ENGINEER IMPRESSION: 1. Old infarcts involving the right basal ganglia and anterior limb right inter nal capsule. 2. Moderate stenosis of supraclinoid right internal carotid artery. 3. 0% stenosis of the proximal internal carotid arteries relative to normal dis xochitl artery lumen diameters (NASCET criteria).
--- NOTE | ~2023-04-02 | XR_ITS ---
XR chest 2V DATE: 04/02/2023 15:04 INDICATION: Weakness. Right-sided tingling. TECHNIQUE: AP and lateral views COMPARISON: None FINDINGS: Normal heart size. Mild aortic tortuosity. No hilar or mediastinal enlargement. No pulmonary infiltrate or consolidation, pleural effusion or pulmonary vascular congestion or pneumo thorax is detected. Calcified infarct or enchondroma of proximal right humeral metaphysis and shaft. Diffuse osteopenia. IMPRESSION: No active cardiopulmonary disease Reviewed, dictated and finalized at location L. B DEPARTMENT MANAGER
--- NOTE | ~2023-04-02 | MR_ITS ---
EXAMINATION: MR brain/brain stem wo con DATE: 04/03/2023 17:15 INDICATION: R/O ACUTE STROKE, TECHNIQUE: Magnetic resonance imaging (MRI) of the brain and brainstem was performed without intraven ous contrast. Sequences included sagittal and axial T1-weighted SE, axial diffusion-weighted FS EPI A SSET, axial T2*-weighted GRE, axial T2-weighted FLAIR Propeller, and axial T2-weighted Propeller. Pos tcontrast axial and coronal T1-weighted SE was obtained. Apparent diffusion coefficient (ADC) maps we re created. COMPARISON: CT brain and CTA brain carotid 04/02/2023. FINDINGS: No abnormal restricted diffusion to suggest acute ischemic infarct. No MRI evidence of hemorrhage or extra-axial collection. Old focal right basal ganglia and right anterior limb internal capsule infarc ts. No suspicious foci of susceptibility to suggest prior intraparenchymal hemorrhage. Scattered foci of white matter hyperintensity, likely representing mild small vessel ischemic disease. No evidence of advanced or lobar predominant parenchymal volume loss. The basilar cisterns are patent. Flow voids are preserved. Trace bilateral mastoid fluid. Paranasal sinuses are within normal limits. Globes and orbital contents are within normal limits. Ill-defined T1 hypointensity in the medullary space of th e left frontal and temporal bones with corresponding hyperintensity on the DWI sequence, mild diffusi on restriction, and FLAIR hyperintensity. IMPRESSION: No acute intracranial process. Specifically, there is no MR evidence of acute stroke. Abnormal signal in the medullary space of the left frontal and temporal bones, without abnormality in the prior CTs. Correlate with history of primary malignancy. Consider bone scanning for further eval uation. Reviewed, dictated and finalized at location K. ERS SUPERVISOR IMPRESSION: No acute intracranial process. Specifically, there is no MR evidence of acute s troke. Abnormal signal in the medullary space of the left frontal and temporal bones, without abnormality in the prior CTs. Correlate with history of primary maligna ncy. Consider bone scanning for further evaluation.
--- NOTE | ~2023-04-02 | CT_ITS ---
EXAMINATION: CT brain wo con DATE: 04/02/2023 14:38 INDICATION: Dysphagia. Right upper extremity weakness. TECHNIQUE: Computed tomography (CT) of the head was performed without intravenous contrast. The mA wa s adjusted according to patient size. Iterative reconstruction technique was employed. The dose-lengt h product was 605.33 mGy-cm. COMPARISON: None FINDINGS: There is no intracranial hemorrhage, acute infarction, or abnormal intracranial mass lesion . There are old infarcts involving the right basal ganglia and anterior limb right internal capsule. There is no intracranial hemorrhage, acute infarction, or abnormal intracranial mass lesion. The vent ricles are normal in size. The orbits are normal. The paranasal sinuses are clear. There are small bi lateral mastoid effusions. IMPRESSION: 1. 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 2. I discussed this case with Dr. Mendes. Reviewed, dictated and finalized at location A. ER GUIDANCE TECHNICIAN IMPRESSION: 1. Old infarcts involving the right basal ganglia and anterior limb right inter nal capsule. 2. I discussed this case with Dr. Mendes.
--- NOTE | 2023-04-02 14:11 | ECG_ITS ---
Measurements Intervals [place] Rate: 66 P: 31 RI: 202 QRS: 4 QRSD: 82 T: 52 QT: 393 QTc: 413 Interpretive Statements SINUS RHYTHM DELAYED PRECORDIAL R/S TRANSITION LOW QRS VOLTAGE IN PRECORDIAL LEADS BASELINE ARTIFACT- I, III, AVR BORDERLINE ECG COMPARED TO ECG 11/05/2019 12:46:55 NO SIGNIFICANT CHANGES Electronically Signed On 04-02-2023 19:05:50 SHALLOT CLEANER by Harpal Navarro D.O.
--- NOTE | 2023-04-02 14:28 | ED.GENADULT ---
HPI - General Adult General Chief complaint: Weakness <Silvino Mendes MD - Last Filed: 04/02/23 19:17> Stated complaint: neuro sx <Silvino Mendes MD - Last Filed: 04/02/23 19:17> Time Seen by Provider: 04/02/23 14:19 <Silvino Mendes MD - Last Filed: 04/02/23 19:17> History of Present Illness HPI narrative: patient is a 67-year-old female who presents ER stroke-like symptoms. At 1:20 p.m. patient had sudden onset numbness to the right upper extremity and also numbness the right tongue. Last approximately 15 minutes. Patient is also having some difficulty expressing herself. She says that it has been happening to her intermittently for 6 months but it is worse today than usual. She reports history of parkinsonian type movements that she takes propanolol for. She has not been diagnosed with Parkinson's. No history of CVA that she is aware of. She is on no blood thinning agents. <Silvino Mendes MD - Last Filed: 04/02/23 19:17> Related Data Home medications: Home Medications Medication Instructions Recorded Confirmed atorvastatin 40 mg tablet 40 mg PO DAILY 08/30/22 04/03/23 dapagliflozin propanediol 10 mg 10 mg PO DAILY 08/30/22 08/30/22 tablet (Farxiga) ergocalciferol (vitamin D2) 1,250 08/30/22 mcg (50,000 unit) capsule levothyroxine 137 mcg tablet 137 mcg PO DAILY 08/30/22 04/03/23 lisinopril 10 mg tablet 10 mg PO DAILY 08/30/22 04/03/23 metformin 500 mg tablet,extended 2,000 mg PO DAILY 08/30/22 04/03/23 release 24 hr omeprazole 40 mg capsule,delayed 40 mg PO DAILY 08/30/22 04/03/23 release propranolol 80 mg tablet 80 mg PO BID 08/30/22 04/03/23 terbinafine HCl 250 mg tablet 250 mg PO DAILY 08/30/22 04/03/23 venlafaxine 75 mg capsule,extended 75 mg PO DAILY 08/30/22 04/03/23 release 24 hr zoledronic acid 5 mg/100 mL in 5 mg IV ONCE 08/30/22 08/30/22 mannitol 5 %-water intravenous piggybck (Reclast) <Silvino Mendes MD - Last Filed: 04/02/23 19:17> Allergies/adverse reactions: Allergies Allergy/AdvReac Type Severity Reaction Status Date / Time Penicillins Allergy Unknown Rash Verified 08/30/22 10:31 <Silvino Mendes MD - Last Filed: 04/02/23 19:17> Review of Systems Review of Systems: All systems reviewed & are unremarkable except as noted in HPI and below <Silvino Mendes MD - Last Filed: 04/02/23 19:17> Constitutional: Constitutional: Reports no additional constitutional complaints <Silvino Mendes MD - Last Filed: 04/02/23 19:17> ENT: Reports system reviewed and no additional complaints, except as documented <Silvino Mendes MD - Last Filed: 04/02/23 19:17> Cardiovascular: Cardiovascular: Reports no additional cardiovascular complaints <Silvino Mendes MD - Last Filed: 04/02/23 19:17> Respiratory: Respiratory: Reports no additional respiratory complaints <Silvino Mendes MD - Last Filed: 04/02/23 19:17> Gastrointestinal: Gastrointestinal: Reports no additional gastrointestinal complaints <Silvino Mendes MD - Last Filed: 04/02/23 19:17> Neurologic: Denies syncope, Denies headache(s), Denies focal weakness and Reports numbness <Silvino Mendes MD - Last Filed: 04/02/23 19:17> PMFSH Past Medical History Medical History: Medical History Adult hypothyroidism Age-related osteoporosis without current pathological fracture Back pain without radiation Benign essential hypertension Bilateral impacted cerumen BMI 33.0-33.9,adult Body mass index [BMI] 29.0-29.9, adult (01/04/19) Body mass index [BMI] 32.0-32.9, adult (11/27/16) Breast cancer screening delivery delivered Colon cancer screening DM w/o complication type II DM w/o complication type II, uncontrolled Dyslipidemia Dyslipidemia associated with type 2 diabetes mellitus Encounter for routine adult health examination without abnormal findings Essential hypertension Famil
[2023-04-02 14:40] LABS: Basophils Percent Auto 0.5 % (0.2-1.2); Eosinophils Absolute Auto 0.2 K/mm3 (0-0.3); Eosinophils Percent Auto 3.7 % (0-4.4); Hematocrit 40.3 % (37.0-47.0); Immature Granulocyte Absolute 0.03 K/mm3 (0.00-0.031); Immature Granulocyte Percent A 0.5 % (0-0.5); Lymphocytes Absolute Auto 1.71 K/mm3 (0.9-3.2); Lymphocytes Percent Auto 30.2 % (18.3-44.2); Mean Corpuscular HGB Conc 32.3 g/dl (32-36); Mean Corpuscular Hemoglobin 30.8 pg (26-34); Mean Corpuscular Volume 95.5 fl (80-100); Mean Platelet Volume 9.4 fl (7.4-10.4); Monocytes Absolute Auto 0.5 K/mm3 (0.1-0.6); Monocytes Percent Auto 9.4 % (2.6-8.5); Neutrophils Absolute Auto 3.2 K/mm3 (1.3-6.7); Neutrophils Percent Auto 55.7 % (45.5-73.1); Platelet Count Result 329 k/mm3 (150-375); Red Blood Count 4.22 M/mm3 (4.2-5.4); Red Cell Distribution Width 12.1 % (11.5-14.5); White Blood Count 5.7 K/mm3 (4.5-10.0)
[2023-04-02 15:25] LABS: Alanine Aminotransferase 14 U/L (6-35); Alkaline Phosphatase 107 U/L (38-126); Anion Gap 10 mmol/L (8-16); Aspartate Amino Transferase 20 U/L (14-36); Bilirubin,Total 0.6 mg/dL (0.2-1.3); Blood Urea Nitrogen 16 mg/dL (7-17); Calcium 8.8 mg/dL (8.4-10.2); Carbon Dioxide 23 mmol/L (22-30); Chloride 103 mmol/L (98-107); Estimated CRCL calculation 77 ml/min; Estimated Glomerular Filt Rate > 60; Glucose 146 mg/dL (65-110); Potassium 4.2 mmol/L (3.4-5.0); Sodium 136 mmol/L (137-145)
[2023-04-02 16:27] LABS: Appearance Urine Clear (Clear); Bacteria Urine 4+ /hpf; Bilirubin Urine Negative (Negative); Blood Urine Negative (Negative); Color Urine Yellow (Yellow); Glucose Urine UA Negative (Negative); Ketones Urine Negative (Negative); Leukocyte Esterase Ur 2+ LEU/UL (Negative); Need Manual Microscopic Reviewed; Nitrate Urine Positive (Negative); Non Pathogenic Casts 0-2; Protein Urine Negative (Negative); RBC Urine 0-2 /hpf (0-2); Specific Grav Ur 1.013 (1.001-1.035); Squamous Epithelial Cell Urine None seen /hpf (Few); Urobilinogen Urine 0.2 mg/dL (<2.0); WBC Urine 0-5 /hpf
[2023-04-02 16:30] LABS: Add Urine Microscopic? YES
--- NOTE | 2023-04-02 16:58 | PC.NURSE ---
pt accepted at [facility] placed on bed wait list
[2023-04-03 05:41] VITALS: BP 145/85; PULSE 77; RESP 15; TEMP 36.9; O2SAT 97
[2023-04-03 07:34] VITALS: BP 111/75; PULSE 87; RESP 18; O2SAT 99
--- NOTE | 2023-04-03 07:56 | PC.NURSE ---
standard heart healthy breakfast tray ordered
--- NOTE | 2023-04-03 08:37 | PC.NURSE ---
spoke to [facility], possible days prior to getting bed assignment
[2023-04-03] MEDS: PROPRANOLOL HCL 40 MG TABLET 80 MG PO (08:57)
[2023-04-03] MEDS: lisinopriL 10 MG TABLET PO (08:57)
[2023-04-03] MEDS: LEVOTHYROXINE SODIUM 112 MCG, LEVOTHYROXINE SODIUM 25 MCG 137 MCG PO (08:57)
[2023-04-03] MEDS: VENLAFAXINE HCL XR 75 MG CAP.ER.24H PO (08:57)
[2023-04-03] MEDS: PANTOPRAZOLE 40 MG TABLET PO (08:58)
[2023-04-03] MEDS: metFORMIN HCL XR 500 MG TAB.SR.24H 2000 MG PO (08:58)
[2023-04-03] MEDS: ATORVASTATIN 40 MG TABLET PO (08:58)
[2023-04-03 10:26] VITALS: BP 140/80; PULSE 84; RESP 23; O2SAT 95
[2023-04-03 12:43] VITALS: BP 136/77; PULSE 85; RESP 20; TEMP 36.7; O2SAT 97
[2023-04-03 14:25] VITALS: BP 134/84; PULSE 78; RESP 16; O2SAT 97
--- NOTE | 2023-04-03 16:06 | ECG_ITS ---
Measurements Intervals [place] Rate: 75 P: 9 SC: 197 QRS: 14 QRSD: 105 T: 58 QT: 372 QTc: 418 Interpretive Statements SINUS RHYTHM NORMAL ECG COMPARED TO ECG 04/02/2023 14:16:58 NO SIGNIFICANT CHANGES Electronically Signed On 04-03-2023 20:10:32 DELINQUENT TAX COLLECTOR by Harpal Navarro D.O.
--- NOTE | 2023-04-03 17:00 | PC.NURSE ---
pt accepted to [facility]
== END 2023-04-03 17:50 | disposition short-term general hospital (02) ==
PROVIDERS: Emergency Provider Emergency Medicine; PCP Family Medicine
DX: I63.9 Cerebral infarction, unspecified (principal); I10 Essential (primary) hypertension; E03.9 Hypothyroidism, unspecified; E11.9 Type 2 diabetes mellitus without complications; E78.5 Hyperlipidemia, unspecified; E55.9 Vitamin D deficiency, unspecified; K21.00 Gastro-esophageal reflux disease with esophagitis, without bleeding; G47.33 Obstructive sleep apnea (adult) (pediatric); M81.0 Age-related osteoporosis without current pathological fracture; Z90.710 Acquired absence of both cervix and uterus; Z87.891 Personal history of nicotine dependence; Z79.84 Long term (current) use of oral hypoglycemic drugs; I65.21 Occlusion and stenosis of right carotid artery; R94.31 Abnormal electrocardiogram [ECG] [EKG]
CPT/HCPCS: 36415; 70450; 70496; 70498; 70551; 71046; 80053; 81001; 85025; 93005; 99285; A9270; Q9967

== ENCOUNTER 2023-07-15 15:24 | Emergency (ER) | payer MEDICARE, SELFPAY ==
[2023-07-15 15:31] VITALS: BP 127/77; PULSE 83; RESP 16; TEMP 35.9; O2SAT 98
--- NOTE | 2023-07-15 15:42 | ED.URI ---
HPI - URI/Sore Throat General Chief Complaint: Upper Respiratory Infection Stated Complaint: Sinus Infection Time Seen by Provider: 07/15/23 15:42 Source: patient Mode of arrival: ambulatory Limitations: no limitations History of Present Illness HPI Narrative: 67-year-old female presents with complaint of sinus congestion, drainage, pressure, sinus headaches for 12 days. Afebrile. Taking Mucinex and Zyrtec daily. All systems reviewed and negative except as noted above. Related Data Home Medications Medication Instructions Recorded Confirmed atorvastatin 40 mg tablet 40 mg PO DAILY 08/30/22 07/15/23 dapagliflozin propanediol 10 mg 10 mg PO DAILY 08/30/22 07/15/23 tablet (Farxiga) ergocalciferol (vitamin D2) 1,250 1,250 mcg PO WEEKLY 08/30/22 07/15/23 mcg (50,000 unit) capsule levothyroxine 137 mcg tablet 137 mcg PO DAILY 08/30/22 07/15/23 lisinopril 10 mg tablet 10 mg PO DAILY 08/30/22 07/15/23 metformin 500 mg tablet,extended 2,000 mg PO DAILY 08/30/22 07/15/23 release 24 hr omeprazole 40 mg capsule,delayed 40 mg PO DAILY 08/30/22 07/15/23 release propranolol 80 mg tablet 80 mg PO BID 08/30/22 07/15/23 terbinafine HCl 250 mg tablet 250 mg PO DAILY 08/30/22 07/15/23 venlafaxine 75 mg capsule,extended 75 mg PO DAILY 08/30/22 07/15/23 release 24 hr aspirin 81 mg chewable tablet 81 mg PO DAILY 07/15/23 07/15/23 clopidogrel 75 mg tablet 75 mg PO DAILY 07/15/23 07/15/23 famotidine 20 mg tablet 20 mg PO DAILY 07/15/23 07/15/23 loratadine 10 mg tablet (Claritin) 10 mg PO DAILY 07/15/23 07/15/23 pantoprazole 40 mg tablet,delayed 40 mg PO DAILY 07/15/23 07/15/23 release Allergies Allergy/AdvReac Type Severity Reaction Status Date / Time Penicillins AdvReac Mild Rash Verified 07/15/23 15:28 Review of Systems Review of Systems: CONSTITUTIONAL: Denies fever, chills, or sweats. EYES: Denies visual changes, redness, or discharge. ENT: Reports rhinorrhea, congestion, sinus congestion, sinus pressure. Denies sore throat, or otalgia. CARDIOVASCULAR: Denies chest pain, palpitations, or edema. RESPIRATORY: Denies cough or dyspnea. GASTROINTESTINAL: Denies abdominal pain, nausea, vomiting, or diarrhea. GENITOURINARY: Denies dysuria or hematuria. SKIN: Denies rash or itching. MUSCULOSKELETAL: Denies back pain, joint pain, or myalgia. NEUROLOGIC: Denies headache, numbness, or weakness. PSYCHIATRIC: Denies anxiety or depression. All other systems reviewed are negative, except as documented in HPI. [facility] Past Medical History Medical History Adult hypothyroidism Age-related osteoporosis without current pathological fracture Back pain without radiation Benign essential hypertension Bilateral impacted cerumen BMI 33.0-33.9,adult Body mass index [BMI] 29.0-29.9, adult (01/04/19) Body mass index [BMI] 32.0-32.9, adult (11/27/16) Breast cancer screening delivery delivered Colon cancer screening DM w/o complication type II DM w/o complication type II, uncontrolled Dyslipidemia Dyslipidemia associated with type 2 diabetes mellitus Encounter for routine adult health examination without abnormal findings Essential hypertension Familial tremor Gastroesophageal reflux disease with esophagitis History of gastroesophageal reflux (GERD) Hypovitaminosis D Major depressive disorder Major depressive disorder with single episode, in full remission Menopause On half-way drug therapy GAYATHRI (obstructive sleep apnea) Osteoporosis Other and unspecified hyperlipidemia Pre-operative clearance Radicular low back pain Seasonal allergies Upper respiratory tract infection Urinary tract infection without hematuria Surgical History Surgical History H/O section X3 History of hysterectomy History of toe surgery Left great toe Family History Family History (Reviewed 08/30/22 @ 10:45 by
== END 2023-07-15 15:57 | disposition home or self-care (01) ==
PROVIDERS: Emergency Provider Nurse Practitioner Family
DX: J01.90 Acute sinusitis, unspecified (principal); Z87.891 Personal history of nicotine dependence; E03.9 Hypothyroidism, unspecified; M81.0 Age-related osteoporosis without current pathological fracture; I10 Essential (primary) hypertension; E11.9 Type 2 diabetes mellitus without complications; E78.5 Hyperlipidemia, unspecified; K21.9 Gastro-esophageal reflux disease without esophagitis; E55.9 Vitamin D deficiency, unspecified; F32.9 Major depressive disorder, single episode, unspecified; Z79.82 Long term (current) use of aspirin
CPT/HCPCS: 99213; G0463

== ENCOUNTER 2023-09-12 11:15 | Outpatient (CLI) | payer MEDICARE, SELFPAY ==
--- NOTE | ~2023-09-12 | MM_ITS ---
EXAMINATION: MM screening neri BI w [id number] HISTORY: Screening mammogram TECHNIQUE: Craniocaudal and mediolateral oblique 3-D tomosynthesis images were obtained and synthetic 2-D images were generated. CAD analysis was submitted and interpreted. COMPARISON: 04/30/2022, 05/03/2020, 02/25/2019 BREAST PARENCHYMAL COMPOSITION:Not Dense. The breasts are almost entirely fatty FINDINGS: No suspicious mass, calcification, or architectural distortion are identified in either moustapha ast to suggest malignancy. There has been no suspicious interval change. IMPRESSION: No mammographic evidence of malignancy. Recommend routine screening mammography in one year. BI-RADS Category 1: Negative Reviewed, dictated and finalized at location .
== END 2023-09-12 11:16 ==
LOC: MICIMG 11:15
PROVIDERS: Visit Provider Obstetrics & Gynecology Gynecology
DX: Z12.31 Encounter for screening mammogram for malignant neoplasm of breast (principal)
CPT/HCPCS: 77063; 77067

== ENCOUNTER 2024-01-23 11:38 | Emergency (ER) | payer MEDICARE, SELFPAY ==
[2024-01-23 11:53] VITALS: BP 104/70; PULSE 93; RESP 16; TEMP 36.1; O2SAT 97
[2024-01-23 12:01] LABS: EDUAAPPEAR Clear; EDUABILI Negative (Negative); EDUABLOOD Negative (Negative); EDUACOLOR1 Yellow; EDUAGLUCOSE 2+ (Negative); EDUAKETONE Negative (Negative); EDUALEUKO Negative (Negative); EDUANITRATE Positive (Negative); EDUAPH 5.5; EDUAPROTEIN Negative (Negative); EDUASPGRAVITY 1.015; EDUAUROBILI 0.2
--- NOTE | 2024-01-23 12:09 | ED_ITS ---
HPI - Female Genitourinary General Chief complaint: Urogenital-Female Stated complaint: uti symptoms Time Seen by Provider: 01/23/24 12:00 Source: patient and RN notes reviewed Mode of arrival: ambulatory Limitations: no limitations History of Present Illness HPI Narrative: Patient presents today with a one-week history of low back pain with some mild lower abdominal discomfort this morning. Patient reports she has some urinary frequency at baseline but denies any additional urinary symptoms. Related Data Home Medications Medication Instructions Recorded Confirmed atorvastatin 40 mg tablet 40 mg PO DAILY 08/30/22 01/23/24 ergocalciferol (vitamin D2) 1,250 1,250 mcg PO WEEKLY 08/30/22 01/23/24 mcg (50,000 unit) capsule levothyroxine 137 mcg tablet 137 mcg PO DAILY 08/30/22 01/23/24 lisinopril 10 mg tablet 10 mg PO DAILY 08/30/22 01/23/24 metformin 500 mg tablet,extended 2,000 mg PO DAILY 08/30/22 01/23/24 release 24 hr omeprazole 40 mg capsule,delayed 40 mg PO DAILY 08/30/22 01/23/24 release propranolol 80 mg tablet 80 mg PO BID 08/30/22 01/23/24 terbinafine HCl 250 mg tablet 250 mg PO DAILY 08/30/22 01/23/24 venlafaxine 75 mg capsule,extended 75 mg PO DAILY 08/30/22 01/23/24 release 24 hr aspirin 81 mg chewable tablet 81 mg PO DAILY 07/15/23 01/23/24 clopidogrel 75 mg tablet 75 mg PO DAILY 07/15/23 01/23/24 famotidine 20 mg tablet 20 mg PO DAILY 07/15/23 01/23/24 loratadine 10 mg tablet (Claritin) 10 mg PO DAILY 07/15/23 01/23/24 pantoprazole 40 mg tablet,delayed 40 mg PO DAILY 07/15/23 01/23/24 release empagliflozin 25 mg tablet 25 mg PO DAILY 01/23/24 01/23/24 (Jardiance) Allergies Allergy/AdvReac Type Severity Reaction Status Date / Time Penicillins AdvReac Mild Rash Verified 01/23/24 11:40 Review of Systems Review of Systems: CONSTITUTIONAL: Denies body aches, fever, chills, or sweats. EYES: Denies visual changes, redness, or discharge. ENT: Denies rhinorrhea, congestion, sore throat, or otalgia. CARDIOVASCULAR: Denies chest pain, palpitations, or edema. RESPIRATORY: Denies cough or dyspnea. GASTROINTESTINAL: Denies nausea, vomiting, or diarrhea.+ suprapubic discomfort GENITOURINARY: Denies dysuria or hematuria. SKIN: Denies rash, itching, or wounds. MUSCULOSKELETAL: Denies joint pain, or myalgia.+ low back pain NEUROLOGIC: Denies headache, numbness, tingling, or weakness. PSYCH: Denies depression or anxiety. [facility] Past Medical History Medical History Adult hypothyroidism Age-related osteoporosis without current pathological fracture Back pain without radiation Benign essential hypertension Bilateral impacted cerumen BMI 33.0-33.9,adult Body mass index [BMI] 29.0-29.9, adult (01/04/19) Body mass index [BMI] 32.0-32.9, adult (11/27/16) Breast cancer screening delivery delivered Colon cancer screening DM w/o complication type II DM w/o complication type II, uncontrolled Dyslipidemia Dyslipidemia associated with type 2 diabetes mellitus Encounter for routine adult health examination without abnormal findings Essential hypertension Familial tremor Gastroesophageal reflux disease with esophagitis History of gastroesophageal reflux (GERD) Hypovitaminosis D Major depressive disorder Major depressive disorder with single episode, in full remission Menopause On halfway drug therapy GAYATHRI (obstructive sleep apnea) Osteoporosis Other and unspecified hyperlipidemia Pre-operative clearance Radicular low back pain Seasonal allergies Upper respiratory tract infection Urinary tract infection without hematuria Surgical History Surgical History H/O section X3 History of hysterectomy History of toe surgery Left great toe Family History Family History Father Family history of diabetes mellitus in first degree relative Hypertension Sibling Family history of diabetes mellitus in first degree relative Mother Family history of emphysema Family history of chronic obstructive pulmonary disease Other Cerebrovascular accident Diabetes mellitus Social History Social History Smoking status: Former smoker Second hand tobacco smoke exposure: No Alcohol intake: current Alcohol use details: Occasional Substance use: never Lack of Transportation: No Lack of Food: Never True Current Housing: I Have Housing Concerned About Future Housing: No Difficulty Paying Gas/Electric Bills: No Difficulty Paying for Meds: YES Currently Unemployed: No Education: Master's Degree or Higher Difficulty w/ Childcare or Family Care: No Living arrangements: with family Occupation/Education: retired Gender identity (if verbalized by the patient): Female Comments At time of signature, I have reviewed and agree with nursing past medical, surgical, social and family history unless otherwise noted. Please see nursing chart for further information. There is no relevant family history pertinent to the presenting complaint Exam Narrative: GENERAL: Well-appearing, well-nourished, and in no acute distress. HEAD: Normocephalic, atraumatic. EYES: EOMI. No redness or drainage. Conjunctivae normal. ENT: Mucous membranes pink and moist. NECK: Normal AROM. CHEST: No respiratory distress. Clear to auscultation. HEART: Regular rate and rhythm. No murmur appreciated. Normal peripheral pulses. ABDOMEN: Soft, nondistended, normal active bowel sounds.+suprapubic discomfort EXTREMITIES: Normal range of motion. No edema. SKIN: Warm, dry, no rash. Capillary refill normal. Normal skin turgor. NEURO: No focal deficits. Alert and oriented x3. Gait steady. PSYCH: Normal affect. No signs of depression or anxiety. Course Course Level of Care: Express Care Visit Vital Signs Vital signs: Vital Signs Temperature 96.9 F L 01/23/24 11:53 Pulse Rate 93 01/23/24 11:53 Respiratory Rate 16 01/23/24 11:53 Blood Pressure 104/70 01/23/24 11:53 Pulse Oximetry 97 01/23/24 11:53 Oxygen Delivery Room Air 01/23/24 11:53 Temperature 96.9 F L 01/23/24 11:53 Pulse Rate 93 01/23/24 11:53 Respiratory Rate 16 01/23/24 11:53 Blood Pressure 104/70 01/23/24 11:53 Pulse Oximetry 97 01/23/24 11:53 Oxygen Delivery Room Air 01/23/24 11:53 Reviewed MDM - Female Genitourinary MDM Narrative Medical decision making narrative: Urinalysis is consistent with developing infection. Culture pending. Prescription for Keflex sent to pharmacy. Anticipatory guidance given Differential Diagnosis Differential diagnosis: Likely urinary tract infection, vaginitis and cystitis Lab Data Attestation: I reviewed the patient's lab results. Labs: Lab Results 01/23/24 Range/Units 11:59 POC Urine Color Yellow POC Urine Clarity Clear POC Urine pH 5.5 POC Ur Specif [place] 1.015 POC Urine Protein Negative (Negative) POC Ur Glucose (UA) 2+ (Negative) POC Urine Ketones Negative (Negative) POC Urine Blood Negative (Negative) POC Urine Nitrite Positive (Negative) POC Urine Bilirubin Negative (Negative) POC Urine Urobilinogen 0.2 POC U Leukocyte Esteras Negative (Negative) Critical Care Time Critical Care Time Critical Care Time: No Discharge Plan Discharge Clinical Impression: Urinary tract infection Qualifiers: Urinary tract infection type: acute cystitis Hematuria presence: with hematuria Qualified Code(s): N30.01 - Acute cystitis with hematuria Patient Disposition: Home, Self-Care Condition: Stable Instructions: Antibiotic Form, Urinary Tract Infection in Women (DC) Additional Instructions: Your urine shows infection today. Take Keflex as prescribed until gone. Your urine will be sent of for a culture to identify what type of bacteria is causing your infection. If the culture shows that your medication will not get rid of your infection, you will be notified and a new antibiotic will be called in for you. If your symptoms worsen to include fever, sweats, chills, nausea, vomiting, severe abdominal or back pain, please go to the ER for further evaluation. Prescriptions: New cephalexin 500 mg capsule 500 mg PO Q6H 7 Days Qty: 28 0RF No Action clopidogrel 75 mg tablet 75 mg PO DAILY famotidine 20 mg tablet 20 mg PO DAILY pantoprazole 40 mg tablet,delayed release (DR/EC) 40 mg PO DAILY aspirin 81 mg tablet,chewable 81 mg PO DAILY loratadine [Claritin] 10 mg Tablet 10 mg PO DAILY Jardiance 25 mg tablet 25 mg PO DAILY atorvastatin 40 mg tablet 40 mg PO DAILY levothyroxine 137 mcg tablet 137 mcg PO DAILY venlafaxine 75 mg capsule,extended release 24hr 75 mg PO DAILY propranolol 80 mg tablet 80 mg PO BID omeprazole 40 mg capsule,delayed release(DR/EC) 40 mg PO DAILY terbinafine HCl 250 mg tablet 250 mg PO DAILY lisinopril 10 mg tablet 10 mg PO DAILY ergocalciferol (vitamin D2) 1,250 mcg (50,000 unit) capsule 1,250 mcg PO WEEKLY metformin 500 mg tablet extended release 24 hr 2,000 mg PO DAILY (DME) OneTouch Ultra Blue Test Strip Strip See Rx Instructions .ROUTE .MEDSUPPLY Qty: 200 1RF Rx Instructions: Use to test blood sugar twice daily (DME) Dexcom G6 Animal Caretaker Supervisor Misc See Rx Instructions .Route Qty: 1 0RF Rx Instructions: check blood sugar continuous (DME) Dexcom G6 Transmitter Device See Rx Instructions .Route Qty: 1 0RF Rx Instructions: check blood sugar continuous Follow-up/Referrals: Joselyn Boykin [Other] Time of Disposition: 12:13
== END 2024-01-23 12:17 | disposition home or self-care (01) ==
PROVIDERS: Emergency Provider Nurse Practitioner
DX: N30.01 Acute cystitis with hematuria (principal); B96.20 Unspecified Escherichia coli [E. coli] as the cause of diseases classified elsewhere; Z87.891 Personal history of nicotine dependence; E11.9 Type 2 diabetes mellitus without complications; I10 Essential (primary) hypertension; E03.9 Hypothyroidism, unspecified; M81.0 Age-related osteoporosis without current pathological fracture; E78.5 Hyperlipidemia, unspecified; K21.9 Gastro-esophageal reflux disease without esophagitis; E55.9 Vitamin D deficiency, unspecified; F32.9 Major depressive disorder, single episode, unspecified; Z79.84 Long term (current) use of oral hypoglycemic drugs; Z79.82 Long term (current) use of aspirin
CPT/HCPCS: 81003; 87086; 87186; 99213; G0463

== ENCOUNTER 2024-07-22 14:47 | Emergency (ER) | payer MEDICARE, SELFPAY ==
[2024-07-22 15:16] VITALS: BP 111/63; PULSE 67; RESP 16; TEMP 36.2; O2SAT 99
[2024-07-22 15:30] LABS: EDUAAPPEAR Cloudy; EDUABILI Negative (Negative); EDUABLOOD Negative (Negative); EDUACOLOR1 Yellow; EDUAGLUCOSE 2+ (Negative); EDUAKETONE Negative (Negative); EDUALEUKO Negative (Negative); EDUANITRATE Positive (Negative); EDUAPROTEIN Negative (Negative); EDUASPGRAVITY 1.015; EDUAUROBILI 0.2
--- NOTE | 2024-07-22 16:23 | ED_ITS ---
HPI - Female Genitourinary General Chief complaint: Urogenital-Female Stated complaint: UTI Time Seen by Provider: 07/22/24 15:45 Source: patient and RN notes reviewed Mode of arrival: ambulatory Limitations: no limitations History of Present Illness HPI Narrative: 68-year-old female presents Express Care complaining of urinary symptoms for 1 week. Patient reports burning with urination, increased frequency, and increase hesitancy. Patient denies any abdominal pain, fevers, body aches, chills, nausea, vomiting, diarrhea, flank pain, hematuria, back pain. Patient says she has taken a couple a days those tablets in ibuprofen throughout the week with mild relief. Patient also says that she is having some vaginal itching and irritation. Patient denies any vaginal discharge, vaginal bleeding, pelvic pressure, or pelvic pain. Patient has a history of diabetes and hypertension. Patient says she takes metformin and Jardiance for her diabetes. Related Data Home Medications ?Medication ?Instructions ?Recorded ?Confirmed ?Last Taken ?Type atorvastatin 40 mg tablet 40 mg PO DAILY 08/30/22 01/23/24 Unknown History ergocalciferol (vitamin D2) 1,250 1,250 mcg PO WEEKLY 08/30/22 01/23/24 Unknown History mcg (50,000 unit) capsule levothyroxine 137 mcg tablet 137 mcg PO DAILY 08/30/22 01/23/24 Unknown History lisinopril 10 mg tablet 10 mg PO DAILY 08/30/22 01/23/24 Unknown History metformin 500 mg tablet,extended 2,000 mg PO DAILY 08/30/22 01/23/24 Unknown History release 24 hr omeprazole 40 mg capsule,delayed 40 mg PO DAILY 08/30/22 01/23/24 Unknown History release propranolol 80 mg tablet 80 mg PO BID 08/30/22 01/23/24 Unknown History terbinafine HCl 250 mg tablet 250 mg PO DAILY 08/30/22 01/23/24 Unknown History venlafaxine 75 mg capsule,extended 75 mg PO DAILY 08/30/22 01/23/24 Unknown History release 24 hr aspirin 81 mg chewable tablet 81 mg PO DAILY 07/15/23 01/23/24 Unknown History clopidogrel 75 mg tablet 75 mg PO DAILY 07/15/23 01/23/24 Unknown History famotidine 20 mg tablet 20 mg PO DAILY 07/15/23 01/23/24 Unknown History loratadine 10 mg tablet (Claritin) 10 mg PO DAILY 07/15/23 01/23/24 Unknown History pantoprazole 40 mg tablet,delayed 40 mg PO DAILY 07/15/23 01/23/24 Unknown History release empagliflozin 25 mg tablet 25 mg PO DAILY 01/23/24 01/23/24 Unknown History (Jardiance) Allergies Allergy/AdvReac Type Severity Reaction Status Date / Time Penicillins AdvReac Mild Rash Verified 01/23/24 11:40 Review of Systems Review of Systems: CONSTITUTIONAL: Denies fever, body aches, chills, or sweats. EYES: Denies visual changes, redness, or discharge. ENT: Denies rhinorrhea, congestion, sore throat, or otalgia. CARDIOVASCULAR: Denies chest pain, palpitations, or edema. RESPIRATORY: Denies cough or dyspnea. GASTROINTESTINAL: Denies abdominal pain, nausea, vomiting, or diarrhea. GENITOURINARY: Positive for dysuria, hesitancy, frequency, vaginal itching, vaginal irritation. Negative for vaginal bleeding, pelvic pain, pelvic pressure, flank pain, or hematuria. SKIN: Denies rash or itching. MUSCULOSKELETAL: Denies back pain, joint pain, or myalgia. NEUROLOGIC: Denies headache, numbness, or weakness. PSYCHIATRIC: Denies anxiety or depression. All other systems reviewed are negative, except as documented in HPI. [facility] Past Medical History Medical History Adult hypothyroidism Age-related osteoporosis without current pathological fracture BMI 33.0-33.9,adult Back pain without radiation Benign essential hypertension Bilateral impacted cerumen Body mass index [BMI] 29.0-29.9, adult (01/04/19) Body mass index [BMI] 32.0-32.9, adult (11/27/16) Breast cancer screening Colon cancer screening DM w/o complication type II DM w/o complication type II, uncontrolled Dyslipidemia associated with type 2 diabetes mellitus Encounter for routine adult health examination without abnormal findings Familial tremor Gastroesophageal reflux disease with esophagitis Hypovitaminosis D Major depressive disorder with single episode, in full remission On [facility] drug therapy Other and unspecified hyperlipidemia Pre-operative clearance Radicular low back pain Seasonal allergies Upper respiratory tract infection Urinary tract infection without hematuria Menopause History of gastroesophageal reflux (GERD) delivery delivered GAYATHIR (obstructive sleep apnea) Osteoporosis Major depressive disorder Dyslipidemia Essential hypertension Surgical History Surgical History History of hysterectomy History of toe surgery Left great toe H/O section X3 Family History Family History Father Family history of diabetes mellitus in first degree relative Hypertension Sibling Family history of diabetes mellitus in first degree relative Mother Family history of emphysema Family history of chronic obstructive pulmonary disease Other Cerebrovascular accident Diabetes mellitus Social History Social History Smoking status: Former smoker Second hand tobacco smoke exposure: No Alcohol intake: current Alcohol use details: Occasional Substance use: never Lack of Transportation: No Lack of Food: Never True Current Housing: I Have Housing Concerned About Future Housing: No Difficulty Paying Gas/Electric Bills: No Difficulty Paying for Meds: YES Currently Unemployed: No Education: Master's Degree or Higher Difficulty w/ Childcare or Family Care: No Living arrangements: with family Occupation/Education: retired Gender identity (if verbalized by the patient): Female Comments At the time of my signature, I reviewed and agree with the nursing past medical, surgical, social, and family history. There is no relevant family history pertinent to the patient complaint. Exam Narrative: GENERAL: This is a well-nourished, well-developed adult, in no apparent distress. They are non ill-appearing, nontoxic appearing. HEAD: normocephalic, atraumatic. EYES: Sclera clear/white. Conjunctiva normal. Vision is grossly intact. Extraocular movements intact EARS: External ears normal, NOSE: External nose normal. THROAT: Mucous membranes moist, NECK: Normal range of motion CARDIOVASCULAR: Regular rate and rhythm without murmurs, gallops, or rubs. RESPIRATORY: Clear to auscultation. Breath sounds equal bilaterally. No wheezes, rales, or rhonchi. GASTROINTESTINAL: Abdomen soft, non-tender, nondistended. Bowel sounds are active. No hepato-splenomegaly, or palpable masses. No guarding. No rebound tenderness GENITOURINARY: Patient declined pelvic exam SKIN: warm, Dry, intact with no suspicious lesions or rash, good texture and turgor. NEURO: awake, alert, and oriented to person, place and time. There were no obvious focal neurologic abnormalities. EXTREMITIES: No joint tenderness, effusion, or edema noted. BACK: Nontender without deformity. No CVA tenderness. Course Course Emergency Course: Portions of this record may have been created with voice recognition software Level of Care: Express Care Visit Vital Signs Vital signs: Vital Signs Temperature 97.2 F L 07/22/24 15:16 Pulse Rate 67 07/22/24 15:16 Respiratory Rate 16 07/22/24 15:16 Blood Pressure 111/63 07/22/24 15:16 Pulse Oximetry 99 07/22/24 15:16 Oxygen Delivery Room Air 07/22/24 15:16 Temperature 97.2 F L 07/22/24 15:16 Pulse Rate 67 07/22/24 15:16 Respiratory Rate 16 07/22/24 15:16 Blood Pressure 111/63 07/22/24 15:16 Pulse Oximetry 99 07/22/24 15:16 Oxygen Delivery Room Air 07/22/24 15:16 Reviewed MDM - Female Genitourinary MDM Narrative Medical decision making narrative: Urine dipstick shows evidence of urinary tract infection. Urine culture pending. Patient's symptoms are also consistent with a urinary tract infection. Given the patient is also having vaginal itching and irritation she was offered a pelvic exam for further evaluation and she declined. Her symptoms are likely consistent with a vaginal yeast infection. She is also taking Jardiance which can increase her risk for urinary tract infections or yeast infections. I will treat empirically with cephalexin for UTI and fluconazole for vaginal yeast infection. Patient previous urine culture showed E coli and was resistant to fluoroquinolones and is contraindicated due to her medications. Patient has multiple antibiotic contraindications due to her medication regimen. Patient says she has tolerated cephalexin in the past despite having a penicillin allergy. Patient says she no longer takes Plavix, therefore there is no concern that it will interact with the fluconazole. Discussed physical exam findings. Advised supportive measures and signs/symptoms to go to the ER. Pt is appropriate for outpt treatment and f/u. Differential Diagnosis Differential diagnosis: Likely urinary tract infection, vaginitis, cystitis and other (Vaginal yeast infection) Lab Data Attestation: I reviewed the patient's lab results. Labs: Lab Results 07/22/24 Range/Units 15:28 POC Urine Color Yellow POC Urine Clarity Cloudy POC Urine pH 7.0 POC Ur Specif [place] 1.015 POC Urine Protein Negative (Negative) POC Ur Glucose (UA) 2+ (Negative) POC Urine Ketones Negative (Negative) POC Urine Blood Negative (Negative) POC Urine Nitrite Positive (Negative) POC Urine Bilirubin Negative (Negative) POC Urine Urobilinogen 0.2 POC U Leukocyte Esteras Negative (Negative) Critical Care Time Critical Care Time Critical Care Time: No Discharge Plan Discharge Clinical Impression: Vaginal yeast infection Urinary tract infection Qualifiers: Urinary tract infection type: site unspecified Hematuria presence: without hematuria Qualified Code(s): N39.0 - Urinary tract infection, site not specified Patient Disposition: Home Condition: Stable Instructions: Antibiotic Form, Yeast Infection (ED), Urinary Tract Infection in Older Adults (ED) Additional Instructions: Take the cephalexin as prescribed. Take the fluconazole once today. If you are still having vaginal symptoms you may take another fluconazole tablet in 3 days. Please talk to your primary care provider about your Jardiance. This may be causing your urinary tract infections and yeast infections. The urine will be sent of for a culture to identify what type of bacteria is causing your infection. If the culture shows that the antibiotic will not get rid of your infection, you will be notified and a new antibiotic will be called in for you. Increase water intake you will need to follow up with your PCP, call to schedule an appointment. Go to the ER for any worsening symptoms or concerns Patient Language: Korean Prescriptions: New fluconazole 150 mg tablet 150 mg PO Q72H Qty: 2 0RF cephalexin 500 mg capsule 500 mg PO Q6H 7 Days Qty: 28 0RF No Action clopidogrel 75 mg tablet 75 mg PO DAILY famotidine 20 mg tablet 20 mg PO DAILY pantoprazole 40 mg tablet,delayed release (DR/EC) 40 mg PO DAILY aspirin 81 mg tablet,chewable 81 mg PO DAILY loratadine [Claritin] 10 mg Tablet 10 mg PO DAILY Jardiance 25 mg tablet 25 mg PO DAILY cephalexin 500 mg capsule 500 mg PO Q6H 7 Days Qty: 28 0RF atorvastatin 40 mg tablet 40 mg PO DAILY levothyroxine 137 mcg tablet 137 mcg PO DAILY venlafaxine 75 mg capsule,extended release 24hr 75 mg PO DAILY propranolol 80 mg tablet 80 mg PO BID omeprazole 40 mg capsule,delayed release(DR/EC) 40 mg PO DAILY terbinafine HCl 250 mg tablet 250 mg PO DAILY lisinopril 10 mg tablet 10 mg PO DAILY ergocalciferol (vitamin D2) 1,250 mcg (50,000 unit) capsule 1,250 mcg PO WEEKLY metformin 500 mg tablet extended release 24 hr 2,000 mg PO DAILY (DME) OneTouch Ultra Blue Test Strip Strip See Rx Instructions .ROUTE .MEDSUPPLY Qty: 200 1RF Rx Instructions: Use to test blood sugar twice daily (DME) Dexcom G6 Speech Language Pathology Assistant Misc See Rx Instructions .Route Qty: 1 0RF Rx Instructions: check blood sugar continuous (DME) Dexcom G6 Transmitter Device See Rx Instructions .Route Qty: 1 0RF Rx Instructions: check blood sugar continuous Follow-up/Referrals: Ashutosh,Joselyn Cerrato [Other] Time of Disposition: 15:47
--- OUTSIDE RECORDS SUMMARY | 2024-07-23 14:39 | XMS_ITS | Clinical Summary ---
Author Organization [facility] Address [address] [place] [address] Care Team Providers Care Bowl Topper Name Role Phone Joselyn Boykin MANAGER OF CHANGE-OVERNIGHT ASSOCIATE Primary Care Provider + Jeremy Yang DO Unavailable [phone] Bella Duvall MD Unavailable [phone] Foreign Whitman MD Unavailable [phone] Source Comments [facility],non-owned Affiliates and Associated Physician Practices is amultiple site organization consisting of ambulatory clinics and hospital sitesin [place], [place], [place] and [place]. This disclosure is being madepursuant to the Care Everywhere program and may not contain all information available regarding this patient. Last updated 17.[facility] Allergies Active Allergy Reactions Criticality Noted Date Comments Penicillins Swelling,Rash Medium 11/26/2011 Medications * Be aware that medications may not be up to date on this document. Alwaysverify current medications with the patient. aspirin (Aspirin) 81 MG chew tabletIndication s:TIA (transient ischemic attack) Take 1 (one) tablet by mouth once daily 90 tablet 3 04/05/19 24 Active Ergocalciferol (VITAMIN D2 PO) Take 50,000 Units by mouth every 7 days Active terbinafine (LamISIL) 250 MG tablet Take 1 (one) tablet by mouth once daily Active Zoledronic Acid (RECLAST IV) Once per year Act peña diclofenac sodium (Voltaren) 1 % gelIndications:A rthritis of both knees Apply 4 (four) g to affected area 4 times daily 100 g 5 06/10/19 24 Active Semaglutide (2 MG/DOSE) 8 MG/3ML Subcutaneous Solution Pen-injector (Ozempic) Inject 2 (two) mg subcutaneously every 7 days 3 mL 4 09/09/19 24 Active empagliflozin (Jardiance) 25 MG tablet Take 1 (one) tablet by mouth once daily 100 tablet 4 11/30/19 24 Active metFORMIN ER 24hr (Glucophage XR) 500 MG tablet Take 4 (four) tablets by mouth once daily 360 tablet 3 11/30/19 24 Active levothyroxine (Synthroid) 137 MCG tablet Take 1 (one) tablet by mouth daily before breakfast 90 tablet 3 11/30/19 24 Active atorvastatin (Lipitor) 40 MG tabletIndication s:TIA (transient ischemic attack) Take 1 (one) tablet by mouth once daily 90 tablet 3 11/30/19 24 Active propranolol ER 24hr (Inderal LA) 120 MG capsule Take 1 (one) capsule by mouth once daily 60 capsule 3 12/14/19 24 Active ondansetron (Zofran) 4 MG tabletIndication s:Nausea Take 1 (one) tablet by mouth every 8 hours as needed for Nausea/Vomiting 10 tablet 1 12/18/19 24 Active polyethylene glycol (Gavilyte-C) 240 g solution Drink half the prep at 5 pm the evening prior to the procedure. Finish the remaining prep at 4 am the morning of the procedure. 4000 mL 01/29/20 24 Active pantoprazole EC (Protonix) 40 MG tablet Take 1 (one) tablet by mouth once daily 30 tablet 5 03/24/19 25 025 Active lisinopril (Prinivil; Zestril) 10 MG tablet Take 1 (one) tablet by mouth once daily 90 tablet 1 03/31/19 25 Active venlafaxine XR 24hr (Effexor XR) 75 MG capsule Take 1 (one) capsule by mouth daily with breakfast 90 capsule 1 07/16/19 25 Active venlafaxine XR 24hr (Effexor XR) 75 MG capsule Take 1 (one) capsule by mouth daily with breakfast 90 capsule 1 10/05/19 24 025 Discontin ued(Reord er) Active Problems Problem Noted Date Diagnosed Date TIA (transient ischemic attack) 11/30/2023 Family history of melanoma 06/10/2023 Dyspepsia 06/10/2023 Essential hypertension 06/10/2023 Anxiety 06/10/2023 Acquired hypothyroidism 06/10/2023 GAYATHRI (obstructive sleep apnea) 06/10/2023 Arthritis of both knees 06/10/2023 Toenail fungus 06/10/2023 Depression 04/03/2023 GERD (gastroesophageal reflux disease) Cerebrovascular accident (CVA), unspecified mech anism 04/02/2023 Diabetic peripheral neuropathy 12/25/2016 0 06/10/2023 Overview (06/10/2023): Last Assessment & Plan: Chronic, stable, not on medication Discuss medication options, not interested at this time Tremor 10/22/2015 Parkinson's disease 10/22/2015 Sensorineural hearing loss 01/04/2015 Migraine without status migrainosus, not intract able 03/02/2014 Seborrheic dermatitis 01/05/2013 Type 2 diabetes mellitus wit h hyperglycemia, without long-term current use of insulin 11/26/2011 Polyneuropathy 11/26/2011 Dizziness and giddiness 11/26/2011 Other abnormalities of gait and mobility 012 Encounters Date Type Department Care Team Description 07/14/2024 Refill [facility] - Internal Med [address] [place] [phone] Joselyn Boykin APRN-HONORIO MEDICATION REFILL 07/11/2024 Refill [facility] - Internal Med [address] [place] [phone] Joselyn Boykin APRN-HONORIO MEDICATION REFILL 06/17/2024 Telephone [facility] - Internal Med [address] [place] [phone] Joselyn Boykin APRN-CNP Forms/questionnaires from Last 3 Months Immunizations Immunization Administration Dates Next Due [email or web address] primary monoval ent 12+ yr 0.3mL Purple cap 06/10/2020,05/20/2020 INFLUENZA VACCINE 12/20/2012,11/19/2011 INFLUENZA VACCINE, HIGH-DOSE , QUADR. (FLUZONE HIGH-DOSE QUADRIVALENT; 65Y+), 0.7 ML (HD-IIV4) 11/21/2018 INFLUENZA VACCINE, HIGH-DOSE , TRIV. (FLUZONE HIGH-DOSE TRIVALENT; 65Y+) (HD-IIV3) 11/21/2018 INFLUENZA VACCINE, QUADR. (F LUZONE; FLULAVAL; FLUARIX; AFLURIA QUADRIVALENT; 6MO+), 0.5 ML (IIV4) 02/26/2018 Pneumococcal Pcv13 Conj 11/21/2018 Family History Medical History Relation Name Comments Cancer - Skin, Melanoma Brother Diabetes - Type 2 Father Hypertension Father Parkinson's Disease Father COPD - Chronic Obstructive Pulmonary Disease Mother emphysema/smoker Relation Name Status Comments Brother Father Mother Social History Tobacco Use Types Packs/Day Years Used Date Smoking Tobacco: Never Smokeless Tobacco: Never Tobacco Cessation:Counseling Given: Not Answered Alcohol Use Standard Drinks/Week Comments Not Currently 0 (1 standard drink = 0.6 oz pur e alcohol) occasionally AUDIT-C Answer Date Recorded Q1: How often do you have a drink containing alcohol? Never 04/03/2023 Q2: How many drinks containi ng alcohol do you have on a typical day when you are drinking? Patient does not drink Q3: How often do you have si x or more drinks on one occasion? Never 04/03/2023 Overall Financial Resource Strain (CARDIA) Answe r Date Recorded How hard is it for you to pa y for the very basics like food, housing, medical care, and heating? Not hard at all 04/03/2023 PHQ-2 Answer Date Recorded Patient Health Questionnaire-2 Score 0 06/10/2023 [facility] - Occupational Stress Questionnaire Answer Date Recorded Do you feel stress - tense, restless, nervous, or anxious, or unable to sleep at night because your mind is troubled all the time - these days? Not at all 04/03/2023 Hunger Vital Sign Answer Date Recorded Within the past 12 months, y ou worried that your food would run out before you got the money to buy more. Never true 04/04/19 24 Within the past 12 months, t he food you bought just didn't last and you didn't have money to get more. Never true 04/04/2023 PRAPARE - Transportation Answer Date Re corded In the past 12 months, has l ack of transportation kept you from medical appointments or from getting medications? No 03/23 In the past 12 months, has l ack of transportation kept you from meetings, work, or from getting things needed for daily living? No 04/03/2023 Housing Stability Vital Sign Answer Maxx e Recorded In the last 12 months, was t here a time when you were not able to pay the mortgage or rent on time? No 04/03/2023 In the last 12 months, how many places have you lived? 1 04/03/2023 In the last 12 months, was t here a time when you did not have a steady place to sleep or slept in a longterm (including now)? No 04/03/2023 Comments No Sex and Gender Information Value Date Recorded Sex Assigned at Female 04/05/2023 10:09 AM SENIOR CENTER DIRECTOR Legal Sex Female 5:20 PM SENIOR CENTER DIRECTOR Gender Identity Female 04/05/2023 10:09 AM SENIOR CENTER DIRECTOR Sexual Orientation Straight 04/05/2023 10 :09 AM SENIOR CENTER DIRECTOR Last Filed Vital Signs Vital Sign Reading Time Taken Comments Blood Pressure 126/66 02/11/2024 12:30 PM SENIOR CENTER DIRECTOR Pulse 74 02/11/2024 12:30 PM SENIOR CENTER DIRECTOR Temperature 36.4 C (97.6 F) 02/11/2024 12:05 PM SENIOR CENTER DIRECTOR Respiratory Rate 10 02/11/2024 12:3 0 PM SENIOR CENTER DIRECTOR Oxygen Saturation 97% 02/11/2024 12: 30 PM SENIOR CENTER DIRECTOR Inhaled Oxygen Concentration - - Weight 76.6 kg (168 lb 12.8 oz) 024 10:41 AM SENIOR CENTER DIRECTOR Height 165.1 cm (5' 5 ) 02/11/2024 10:4 1 AM SENIOR CENTER DIRECTOR Body Mass Index 28.09 02/11/2024 10:41 AM SENIOR CENTER DIRECTOR Plan of Treatment Upcoming Encounters Date Type Department Care Team (Late st Contact Info) Description 09/16/2024 10:30 AM CDT Office Visit [facility] [facility], [place] [phone] Joselyn Boykin, MANAGER OF CHANGE-OVERNIGHT ASSOCIATE [address] [place] [address] [address] [place] [address] 09/16/2024 3:40 PM CDT Office Visit [facility] - Endocrinology [address] [place] [address], [place] [phone] Shabana Holder MD [address] [place] [address] [facility] [place] [address] Health Maintenance Due Date Last Done Comments COLOGUARD (AGES 45-75) - COLON CA SCREENING 1955 CT COLONOGRAPHY - COLON CA SCREENING 1955 FIT - COLON CA SCREENING 1955 FLEX SIG - COLON CA SCREENING 1955 DTAP/TDAP/TD VACCINES (1 - Tdap) 1972 ZOSTER VACCINE (1 of 2) 11/16/2003 Respiratory Syncytial Virus (RSV) Vaccine Pt: or over 60 yrs (1 - Risk 60-74 years 1-dose series) 2013 PNEUMOCOCCAL VACCINE 50+ (2 of 2 - PPSV23) 01/16/2019 11/21/2018 DIABETES-FOOT EXAM WITH MONOFILAMENT 04/03/2023 COVID-19 VACCINE ( - season) 2023 06/10/2020, 05/20/2020 DIABETES-HGB A1C 02/29/2024 11/30/2023, , 12/06/2022, Additional history exists DEPRESSION SCREENING 03/23/2024 04/02/2023 DIABETES - URINE PROTEIN SCREENING 03/23/2024 12/13/2022 (Done Outside Per Report), 12/02/2012 MEDICARE AWV CALENDAR YEAR 2024 DIABETES-SERUM CREATININE 04/04/2024 04/04/2023, 02/2013 MAMMOGRAM 04/30/2024 04/30/2022, 08/21, 03/10/2014, Additional history exists INFLUENZA VACCINE (Season Ended) 2024 11/21/2018, 11/21/2018, 02/26/2018, Additional history exists DIABETES RETINOPATHY SCREENING 05/07/2026 05/07/2024, 12/22/2022 (Done Outside Per Patient) COLON MONITORING 02/10/2034 02/11/2024, 02/11/2024 COLONOSCOPY - COLON CA SCREENING 02/10/2034 02/11/2024, 02/11/2024, 08/12/2020 Colorectal Cancer Screening 02/10/2034 BONE DENSITY TESTING Completed 03/24/2022 (Done Outside Per Report) HEPATITIS B VACCINE Aged Out No longe r eligible based on patient's age to complete this topic HEPATITIS C SCREENING Discontinued HIB VACCINE Aged Out No longer eligi ble based on patient's age to complete this topic HPV VACCINE Aged Out No longer eligi ble based on patient's age to complete this topic MENINGOCOCCAL (Group B) VACCINE SHARED DECISION-MAKING Aged Out No longer eligible based on patient's age to complete this topic MENINGOCOCCAL GROUPS A/C/Y/W VACCINE Aged Out No longer eligible based on patient's age to complete this topic Procedures Procedure Name Priority Date/Time Associated Diagnosis Comments EYE EXAM Routine 05/07/2024 1:33 PM SENIOR CENTER DIRECTOR ENDOSCOPY, COLON, SCREENING Routine 02/11/2024 11:17 AM SENIOR CENTER DIRECTOR HEMOGLOBIN A1C - POINT OF CARE (AMB) [facility] Routine 11/30/2023 10:51 AM CDT Type 2 diabetes mellitus with hyperglycemia, without long-term current use of insulin BASIC METABOLIC PANEL (CALCIUM TOTAL) Routine 04/04/2023 2:32 AM SENIOR CENTER DIRECTOR MAMMO BILAT SCREENING Routine 09/03/2016 3:09 PM CDT MICROALB/CREAT RATIO URINE RANDOM PANEL Routine 12/02/2012 11:30 AM CDT from Last 3 Months or Most Recently Relevant to Health Maintenance Results * EYE EXAM (05/07/2024 1:33 PM SENIOR CENTER DIRECTOR) Anatomical Region Laterality Modality Other us Historical Provider SCANNING ONLY Final Res ult * ENDOSCOPY, COLON, SCREENING (02/11/2024 11:17 AM SENIOR CENTER DIRECTOR) Report Endoscopy POC Endoscopy Department Report _ Patient Name: Paige De Leon Procedure Date: 02/11/2024 11:17 AM Date of : 1955 Classification: Outpatient Gender: Female Ethnicity: Not or Race: White _ Providers: Jamar Edmondson MD, Becki Kim MD (Fellow) Referring MD: Joselyn Boykin (Referring MD) Procedure: Colonoscopy Indications: Screening for colorectal malignant neoplasm Medications: Monitored Anesthesia Care Description of Procedure: Pre-Anesthesia Assessment: - ASA Grade Assessment: II - A patient with mild systemic disease. - After reviewing the risks and benefits, the patient was deemed in satisfactory condition to undergo the procedure. - The anesthesia plan was to use moderate sedation/analgesia (conscious sedation). After I obtained informed consent, the scope was passed under direct vision. Throughout the procedure, the patient's blood pressure, pulse, and oxygen saturations were monitored continuously. The [id number] was introduced through the anus and advanced to the terminal ileum, with identification of the appendiceal orifice and IC valve. The colonoscopy was performed without difficulty. The patient tolerated the procedure well. The quality of the bowel preparation was evaluated using the BBPS ([place] Bowel Preparation Scale) with scores of: Right Colon = 3, Transverse Colon = 3 and Left Colon = 3 (entire mucosa seen well with no residual staining, small fragments of stool or opaque liquid). The total BBPS score equals 9. The terminal ileum, ileocecal valve, appendiceal orifice, and rectum were photographed. Findings: The perianal and digital rectal examinations were normal. Pertinent negatives include no anal lesion or abnormality. A 4 mm polyp was found in the sigmoid colon. The polyp was sessile. The polyp was removed with a cold snare. Resection and retrieval were complete. Estimated blood loss was minimal. The exam was otherwise without abnormality on direct and retroflexion views. Estimated Blood Loss: Estimated blood loss: none. Complications: No immediate complications. Impression: - One 4 mm polyp in the sigmoid colon, removed with a cold snare. Resected and retrieved. - The examination was otherwise normal on direct and retroflexion views. Recommendation: - Discharge patient to home. - Resume previous diet. - Continue present medications. - Await pathology results. - Repeat colonoscopy in 10 years for screening purposes. - Patient has a contact number available for emergencies. The signs and symptoms of potential delayed complications were discussed with the patient. Return to normal activities tomorrow. Written discharge instructions were provided to the patient. Attending Participation: I was present and participated during the entire procedure, including non-vargas portions. Procedure Code(s): --- Professional --- 24950, Colonoscopy, flexible; with removal of tumor(s), polyp(s), or other lesion(s) by snare technique Diagnosis Code(s): --- Professional --- Z12.11, Encounter for screening for malignant neoplasm of colon D12.5, Benign neoplasm of sigmoid colon CPT copyright 2021 [employer]. All rights reserved. The codes documented in this report are preliminary and upon raw stock drier tender review may be revised to meet current compliance requirements. Jamar Edmondson MD 02/11/2024 12:07:33 PM Note Initiated On: 02/11/2024 11:17 AM Number of Addenda: [id number] [place] [address] SUSAN 02/11/2024 11:1 7 AM SENIOR CENTER DIRECTOR Jamar Edmondson MD GI PROCEDURE ORDERABLES Edited Result - Final [facility] * HEMOGLOBIN A1C - POINT OF CARE (AMB) [facility] (11/30/2023 10:51 AM CDT) Hemoglobin A1c POCT 9.2 % [facility] Johnna [facility] BLOOD SPECIMEN / Unknown 11/30/2023 10:51 AM CDT Shabana Holder MD LAB - POINT OF CARE ORDERABLES Final Result [facility] Johnna [place] [address] [facility], [place] [address], [facility] [email or web address]] [phone] * (ABNORMAL) BASIC METABOLIC PANEL (CALCIUM TOTAL) (04/04/2023 2:32 AM SENIOR CENTER DIRECTOR) BUN 21 7 - 26 mg/dL 04/04/2023 5:06 AM [facility] Creatinine 0.61 0.56 - 0.96 mg/dL 04/04/2023 5:06 AM [facility] Sodium 137 136 - 145 mmol/L 04/04/2023 5:06 AM [facility] Potassium 4.2 3.5 - 4.5 mmol/L 04/04/2023 5:06 AM [facility] Chloride 105 98 - 107 mmol/L 04/04/2023 5:06 AM [facility] CO2 25 22 - 29 mmol/L 04/04/2023 5:06 AM [facility] Glucose 207(H) 70 - 115 mg/dL 04/04/2023 5:06 AM [facility] Calcium 8.6 8.4 - 10.2 mg/dL 04/04/2023 5:06 AM [facility] Anion Gap 7 6 - 16 04/04/2023 5:06 AM [facility] BUN/Creatinine Ratio 34(H) 7 - 23 04/04/2023 5:06 AM [facility] Osmolality Calculated 293 275 - 295 mOsm/kg 04/04/2023 5:06 AM [facility] eGFR by CKD-EPI >90 >=90 mL/min/1.7 3 m2 04/04/2023 5:06 AM SENIOR CENTER DIRECTOR [facility] Blood BLOOD SPECIMEN / Unknown Lab Venipuncture / Unknown 04/04/2023 2:32 AM SENIOR CENTER DIRECTOR 04/04/2023 4:41 AM SENIOR CENTER DIRECTOR Foreign Whitman MD LAB - CHEMISTRY ORDERABLES Final Result [facility] [address] [place] [address], [facility] [[email or web address]] [phone] * MAMMO BILAT SCREENING (09/03/2016 3:09 PM CDT) Anatomical Region Laterality Modality Breast Bilateral Other Impressions 09/04/2016 12:40 PM CDT IMPRESSION: No mammographic evidence of malignancy. BI-RADS Category 1: Negative mammogram. RECOMMENDATION: Return for mammograms in one year or sooner if clinically indicated. This report was electronically signed by DANIELLA NAJERA M.D. on 09/04/2016 12:40 PM . Narrative 09/04/2016 12:40 PM CDT Bilateral screening mammogram Date: 09/03/2016 3:10 PM Comparison: Multiple priors, most recently 03/10/2014. History: Screening mammogram. Risk assessment: Breast cancer lifetime risk was assessed using several models. Lifetime risk using the Tyrer-Cuzick model is calculated at 5 %, and using NCI screening tool at 6 %. This is considered average lifetime risk. Technique: The breasts were imaged in multiple views using 3D tomosynthesis with reconstructed/synthetic images and CAD analysis. Findings: No suspicious mass, grouped microcalcification or architectural distortion is seen. No significant change is noted since the prior examination. Breast parenchymal density: The breasts are almost entirely fatty. This examination was subjected to CAD analysis. Procedure Note Michelle Najera MD - 06/19/2017 Bilateral screening mammogram Date: 09/03/2016 3:10 PM Comparison: Multiple priors, most recently 03/10/2014. History: Screening mammogram. Risk assessment: Breast cancer lifetime risk was assessed using severalmodels. Lifetime risk using the Tyrer-Cuzick model is calculated at 5 %,and using NCI screening tool at 6 %. This is considered average lifetimerisk. Technique: The breasts were imaged in multiple views using 3Dtomosynthesis with reconstructed/synthetic images and CAD analysis. Findings: No suspicious mass, grouped microcalcification or architectural distortionis seen. No significant change is noted since the prior examination. Breast parenchymal density: The breasts are almost entirely fatty. This examination was subjected to CAD analysis. IMPRESSION IMPRESSION: No mammographic evidence of malignancy. BI-RADS Category 1: Negative mammogram. RECOMMENDATION: Return for mammograms in one year or sooner if clinicallyindicated. This report was electronically signed by DANIELLA NAJERA M.D. on09/04/2016 12:40 PM . Michelle Martin MD MAMMO ORDERABLES Final Resu lt * MICROALB/CREAT RATIO URINE RANDOM PANEL (12/02/2012 11:30 AM CDT) Microalbumin/Cre atinine Ratio < 12 mg/G [facility] Albumin Random Urine < 5.0 mcg/mL [facility] Comment: REFERENCE RANGE: NONE ESTABLISHED FOR RANDOM URINE SPECIMENS. Creatinine Random Urine 41 mg/dL [facility] Comment: REFERENCE RANGE: NONE ESTABLISHED FOR RANDOM URINE SPECIMENS. 12/02/2012 11:3 0 AM CDT 12/02/2012 1:35 PM CDT Antonio Guevara MD LAB - URINE CHEMISTRY ORDERABL ES Final Result [address] [phone] from Last 3 Months or Most Recently Relevant to Health Maintenance Insurance [employer] MEDICARE ADV HMO & PPO Advance Directives * Full Code (Latest Code Status on File) Date Activated Date Inactivated Comments 04/03/2023 8:01 PM 04/04/2023 5:16 PM Care Teams Bowl Topper Relationship Specialty Start Date End Date Joselyn Boykin, MANAGER OF CHANGE-OVERNIGHT ASSOCIATE [address] [phone] PCP - General Nurse Practitioner 06/01/23 Jeremy Yang DO [address] [facility] [address] DIV OF [facility] INTER[facility] MEDICINE [place], [place] Internal Medicine 11/03/23 Bella Duvall MD [address] [facility] [address] [facility] [place], [place] Neurologist Neurology 11/03/23 Foreign Whitman MD [address] [place] [address] Neurologist Neurology 11/03/23
--- OUTSIDE RECORDS SUMMARY | 2024-07-23 14:39 | XMS_ITS | Encounter Summary ---
Author Organization [facility] Address [facility] [place] [address] Care Team Providers Care Otr Van Cdl Truck Driver Name Role Phone Joselyn Boykin SCREEN STRETCHER-GLASSWARE ENGRAVER Primary Care Provider + Jeremy Yang DO Unavailable [phone] Bella Duvall MD Unavailable [phone] Foreign Whitman MD Unavailable [phone] Reason for Visit * Reason Onset Date Comments MEDICATION REFILL 01/02/2024 Encounter Details Date Type Department Care Team (Late st Contact Info) Description 01/02/2024 Refill [facility] - Endocrinology [address] [place] [address], [place] [phone] Shabana Holder MD [address] [place] [address] [place] [phone] MEDICATION REFILL Social History Tobacco Use Types Packs/Day Years Used Date Smoking Tobacco: Never Smokeless Tobacco: Never Alcohol Use Standard Drinks/Week Comments Yes 14 (1 standard drink = 0.6 oz pu re alcohol) two a day AUDIT-C Answer Date Recorded Q1: How often [...] Recorded Patient Health Questionnaire-2 Score 0 06/10/2023 [facility] Occupat ional Health - Occupational Stress [...] place to sleep or slept in a assisted (including now)? No 04/03/2023 Comments No Sex and Gender Information Value Date Recorded Sex Assigned at Female 04/05/2023 10:09 AM SECURITY ADMINISTRATOR Legal Sex Female 5:20 PM SECURITY ADMINISTRATOR Gender Identity Female 04/05/2023 10:09 AM SECURITY ADMINISTRATOR Sexual Orientation Straight 04/05/2023 10 :09 AM SECURITY ADMINISTRATOR documented as of this encounter Functional Status * Is person deaf or have serious hearing difficulty? Answer Date of Assessment Author No 04/03/2023 8:27 PM SECURITY ADMINISTRATOR Malorie Mccarty, RN * Is person blind or have serious difficulty seeing? Answer Date of Assessment Author No 04/03/2023 8:27 PM Gardenia Escobar RN * Does person have serious difficulty walking/climbing stairs? Answer Date of Assessment Author No 04/03/2023 8:27 PM Malorie Escobar RN * Does person have difficulty dressing/bathing? Answer Date of Assessment Author No 04/03/2023 8:27 PM Malorie Escobar RN * Does person have difficulty doing errands alone? Answer Date of Assessment Author No 04/03/2023 8:27 PM Malorie Escobar RN documented as of this encounter Mental Status * Does person have difficulty concentrating/remembering/making decisions? Answer Entry Date Author No 04/03/2023 8:27 PM Malorie Escobar RN documented in this encounter Plan of Treatment Upcoming Encounters Date Type Department Care Team (Late st Contact Info) Description 09/16/2024 10:30 AM CDT Office Visit [facility] - Internal Med [address] [place] [phone] Joselyn Boykin APRN-GLASSWARE ENGRAVER [address] [place] [phone] 09/16/2024 3:40 PM CDT Office Visit [facility] - Endocrinology [address] [place] [phone] Shabana Holder MD [address] [place] [address] 2L [place] [phone] documented as of this encounter Visit Diagnoses Not on filedocumented in this encounter Care Teams Otr Van Cdl Truck Driver Relationship Specialty Start Date End Date Joselyn Boykin APRN-CNP [address] [place] [phone] PCP - General Nurse Practitioner 06/01/23 Jeremy Yang DO [address] [place] [address] 2L DIV OF GEN INTERNAL MEDICINE [place] Internal Medicine 11/03/23 Bella Duvall MD [address] OF [facility] INTERNAL MEDICINE [place] Neurologist Neurology 11/03/23 Foreign Whitman MD [address] [place] [address] Neurologist Neurology 11/03/23 documented as of this encounter
--- OUTSIDE RECORDS SUMMARY | 2024-07-23 14:39 | XMS_ITS | Encounter Summary ---
Author Organization [facility] Address [facility] [place] [address] Care Team Providers Care Fire Extinguisher Tester Name Role Phone Ashutosh, Joselyn Bairon DOOR REPAIRER BUS-COLLECTIONS OFFICER Primary Care Provider + Jeremy Yang DO Unavailable [phone] Bella Duvall MD Unavailable [phone] Foreign Whitman MD Unavailable Reason for Visit * Reason Onset Date Comments MEDICATION REFILL 12/15/2023 Encounter Details Date Type Department Care Team (Late st Contact Info) Description 12/15/2023 Refill [facility] - Neurology [facility]5 [place] [phone] Rain Brandon MD [address] [place] [address] MEDICATION REFILL Social History Tobacco Use Types [...] Recorded Patient Health Questionnaire-2 Score 0 06/10/2023 [facility] of Occupat ional Health - Occupational Stress [...] place to sleep or slept in a fdc (including now)? No 04/03/2023 Comments No Sex and Gender Information Value Date Recorded Sex Assigned at Female 04/05/2023 10:09 AM GLOBAL CLIMATE CHANGE ANALYST Legal Sex Female 5:20 PM GLOBAL CLIMATE CHANGE ANALYST Gender Identity Female 04/05/2023 10:09 AM GLOBAL CLIMATE CHANGE ANALYST Sexual Orientation Straight 04/05/2023 10 :09 AM GLOBAL CLIMATE CHANGE ANALYST documented as of this encounter Functional Status * Is person deaf or have serious hearing difficulty? Answer Date of Assessment Author No 04/03/2023 8:27 PM PIPER Mccarty Ma rk, RN * Is person blind or have serious difficulty seeing? Answer Date of Assessment Author No 04/03/2023 8:27 PM Malorie Escobar RN * Does person have serious difficulty walking/climbing stairs? Answer Date of Assessment Author No 04/03/2023 8:27 PM Malorie Escobar, RN * Does person have difficulty dressing/bathing? [...] Description 09/16/2024 10:30 AM CDT Office Visit [facility] - Internal Med [address] [place] [phone] Joselyn Boykin APRN-COLLECTIONS OFFICER [address] [place] [phone] 09/16/2024 3:40 PM CDT Office Visit [facility] - Endocrinology [address] [place] [phone] Shabana Holder MD [address] [place] [address] 2L [place] [phone] documented as of this encounter Visit Diagnoses Not on filedocumented in this encounter Care Teams Fire Extinguisher Tester Relationship Specialty Start Date End Date Joselyn Boykin APRN-COLLECTIONS OFFICER [address] [place] [phone] PCP - General Nurse Practitioner 06/01/23 Jeremy Yang DO [address] [place] [address] 2L DIV OF GEN INTERNAL MEDICINE [place], [place] Internal Medicine 11/03/23 Bella Duvall MD [address] [facility] 2L [facility] INTERNAL MEDICINE [place] Neurologist Neurology 11/03/23 Foreign Whitman MD [address] [place] [address] Neurologist Neurology 11/03/23 documented as of this encounter
--- OUTSIDE RECORDS SUMMARY | 2024-07-23 14:39 | XMS_ITS | Referral Summary ---
Author Organization [facility] at the Medical Office Building Address [address] [place] [address] Care Team Providers Care Assistant Professor Of Dietetics Name Role Phone Mila Palma NP Primary Care Provider [phone] Encounters Date Type Department Care Team Description 07/14/2024 Telephone [facility] Primary Care [address] [facility] [address] [place] [phone] Mila Palma NP from Last 3 Months Allergies Active Allergy Reactions Criticality Noted Date Comments Penicillins Medications ergocalciferol (VITAMIN D) 50,000 unit capsule Take 1 capsule (50,000 Units total) by mouth once a week 3 Active terbinafine (LamiSIL) 250 mg tablet Take 1 tablet (250 mg total) by mouth daily Active propranoloL (INDERAL) 80 mg tablet Take 1 tablet (80 mg total) by mouth 2 (two) times a day 180 tablet 3 Active Additional Information Patient taking differently:80 mg oralDaily, Reported on 05/20/2023 aspirin 81 mg chewable tablet Take 1 tablet (81 mg total) by mouth daily 4 Active clopidogreL (PLAVIX) 75 mg tablet Take 1 tablet (75 mg total) by mouth daily 4 Active semaglutide (OZEMPIC) 0.25 mg or 0.5 mg(2 mg/1.5 mL) pen injector injection Inject 0.5 mg under the skin once a week Active metFORMIN XR (GLUCOPHAGE XR) 500 mg 24 hr tablet Take 4 tablets (2,000 mg total) by mouth daily with breakfast 360 tablet 3 4 Active levothyroxine (SYNTHROID) 137 mcg tablet Take 1 tablet (137 mcg total) by mouth daily 90 tablet 3 4 Active atorvastatin (LIPITOR) 40 mg tablet Take 1 tablet (40 mg total) by mouth daily 90 tablet [address] (PROTONIX) 40 mg EC tablet Take 1 tablet (40 mg total) by mouth daily 90 tablet 1 4 Active venlafaxine XR (EFFEXOR-XR) 75 mg 24 hr capsule Take 1 capsule by mouth once daily 90 capsule 1 4 Active lisinopriL (PRINIVIL,ZESTR IL) 10 mg tablet Take 1 tablet by mouth once daily 90 tablet 1 4 Active Active Problems Problem Noted Date Diagnosed Date TIA (transient ischemic attack) 05/25/2023 Assessment & Plan (05/25/2023 6:35 AM SAMPLER AND TEST PREPARER): New diagnosis Reviewed hospital admission notes dated 04/03/2023 Encouraged to keep appointment on 06/15/2023 with the Stroke [facility] at [facility] CVA (cerebral vascular accident) 05/05/2023 Right sided sciatica 09/22/2022 Assessment & Plan (01/01/2023 5:00 PM CDT): Chronic, stable Reviewed medication options, not interested at this time Assessment & Plan (09/22/2022 5:36 AM CDT): Chronic, currently symptomatic-ordered x-ray lumbar spine. Screening for deficiency anemia 06/22/2022 Assessment & Plan (06/22/2022 11:27 AM CDT): Ordered CBC. Type 2 diabetes mellitus with hyperlipidemia Assessment & Plan (05/25/2023 6:34 AM SAMPLER AND TEST PREPARER): Chronic, uncontrolled, but improved Reviewed hemoglobin A1c dated 04/04/2023 and 12/08/2022 Continued on metformin XR and semaglutide, refills for metformin XR sent to pharmacy per request Hemoglobin A1c and CMP ordered to be done prior to next visit Assessment & Plan (01/01/2023 5:02 PM CDT): Chronic, uncontrolled, with controlled hyperlipidemia Continued on metformin XR 1000 mg twice daily & Farxiga 10 mg daily Discussed additional treatment options, not interested at this time Advised to avoid simple sugars and to limit starting vegetables and white potato to no more than half cup serving per day Ordered CMP and hemoglobin A1c Recommended follow-up in 3 months Assessment & Plan (09/22/2022 5:39 AM CDT): Chronic, uncontrolled as evidenced by in office hemoglobin A1c POCT test (8.8), with hyperlipidemia, chronicity and stability unknown-continued on metformin and Farxiga and advised to restart Ozempic 0.25 mg once weekly x 4 weeks, then 0.50 mg once weekly x 4 weeks, then 1 mg once a week x 4 weeks, then 2 mg once weekly. Continued on atorvastatin. Fasting lab work was previously ordered, encouraged to fast for 12 hours prior to getting lab work done, nothing to eat or drink but water, black coffee, or plain hot or iced tea. Recommend checking with insurance company before getting lab work done to verify preferred lab and coverage for lab work. Assessment & Plan (06/22/2022 11:24 AM CDT): Chronicity and stability unknown-continued on metformin XR and Farxiga. Ordered CMP, hemoglobin A1c, albumin/creatinine ratio and lipid panel. Encouraged to get annual eye exam. Familial tremor 06/19/2022 Assessment & Plan (12/11/2022 4:26 PM CDT): Chronic, stable, affects both hands and head Continued on propranolol Assessment & Plan (06/22/2022 11:25 AM CDT): Chronic, stable-referred to Neurology for further evaluation and management. Mixed hyperlipidemia 06/19/2022 Assessment & Plan (05/25/2023 6:34 AM SAMPLER AND TEST PREPARER): Chronic, stable, controlled on medication Reviewed labs dated 12/06/2022 Continued on atorvastatin, refills sent to pharmacy per request Assessment & Plan (01/01/2023 4:59 PM CDT): Chronic, stable, controlled on medication Reviewed labs dated 12/06/2022 Continued on atorvastatin Assessment & Plan (06/22/2022 11:25 AM CDT): Chronicity and stability unknown-continued on atorvastatin. Ordered lipid panel. Acquired hypothyroidism 06/19/2022 Assessment & Plan (05/25/2023 6:34 AM SAMPLER AND TEST PREPARER): Chronic, stable, controlled on medication Reviewed labs dated 12/06/2022 Continued on levothyroxine, refills for levothyroxine sent to pharmacy per request Ordered TSH level to be done prior to next visit Assessment & Plan (01/01/2023 4:59 PM CDT): Chronic, stable, controlled with medication Reviewed labs dated 12/06/2022 Continued on Synthroid Assessment & Plan (09/22/2022 5:36 AM CDT): Chronic, controlled at last check-continued on levothyroxine. Ordered TSH level. Assessment & Plan (06/22/2022 11:25 AM CDT): Chronicity and stability unknown-continued on levothyroxine. Ordered TSH level. Vitamin D deficiency 06/19/2022 Assessment & Plan (01/01/2023 5:03 PM CDT): Chronicity and stability unknown Advised can take up to 2000 IU of vitamin D3 daily without monitoring Assessment & Plan (06/22/2022 11:26 AM CDT): Chronicity and stability unknown, not on supplement-ordered vitamin-D 25 OH. Diabetic peripheral neuropathy 12/25/2016 Assessment & Plan (01/01/2023 4:57 PM CDT): Chronic, stable, not on medication Discuss medication options, not interested at this time Assessment & Plan (06/22/2022 11:26 AM CDT): Chronic, stable-referred to Neurology for further evaluation and management. Ordered B12 level. Hearing loss of right ear 12/25/2016 Assessment & Plan (01/01/2023 4:58 PM CDT): Chronic, stability unknown Can refer to ENT if/when interested Resolved Problems Problem Noted Date Diagnosed Date Resolved Date Left sided sciatica 09/22/2022 12/12/19 Assessment & Plan (09/22/2022 5:36 AM CDT): Chronic, currently asymptomatic-ordered x-ray lumbar spine. Traumatic ecchymosis of lowe r leg, right, initial encounter 09/17/2022 12/11/2022 Assessment & Plan (09/22/2022 5:37 AM CDT): Acute-advised to monitor calf for redness, warmth, pain, and/or swelling, and to go to ER if any of these occurs. Encounter for hepatitis C sc reening test for low risk patient 06/22/2022 01/01/2023 Assessment & Plan (06/22/2022 11:27 AM CDT): Ordered hepatitis C antibody screening test. Encounter to establish care 06/19/2022 09/22/2022 Assessment & Plan (06/22/2022 11:27 AM CDT): Reviewed past and current medical history, surgical history, social history, family history, current medications, and allergies. A ROS and PE were performed. Labs were ordered and a referral was made. Discussed screening colonoscopy, well woman exam/cervical cancer screening, screening mammogram, monthly breast self-exams, bone density testing, and recommended immunizations. Patient will follow-up in 6 months for annual exam, sooner if needed. 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 AUDIT-C Answer Date Recorded Q1: How often do you have a drink containing alc ohol? 2-3 times a week 06/19/2022 Q2: How many drinks containi ng alcohol do you have on a typical day when you are drinking? 1 or 2 06/19/2022 Q3: How often do you have si x or more drinks on one occasion? Never 06/19/2022 PHQ-2 Answer Date Recorded PHQ-2 Total Score (If total score is 3 or more points, staff should administer the PHQ-9) 0 12/11/2022 Personal Safety Answer Date Recorded Getting School Help Needed Not on file 03/04 Comments Unknown Sex and Gender Information Value Date Recorded Sex Assigned at Not on file Legal Sex Female 12:13 PM SAMPLER AND TEST PREPARER Gender Identity Not on file Sexual Orientation Not on file Last Filed Vital Signs Vital Sign Reading Time Taken Comments Blood Pressure 128/82 05/20/2023 4:08 PM SAMPLER AND TEST PREPARER Pulse 74 05/20/2023 4:08 PM SAMPLER AND TEST PREPARER Temperature 36.4 C (97.6 F) 05/20/2023 4:08 PM SAMPLER AND TEST PREPARER Respiratory Rate 14 05/20/2023 4:08 PM SAMPLER AND TEST PREPARER Oxygen Saturation 97% 05/20/2023 4:08 PM SAMPLER AND TEST PREPARER Inhaled Oxygen Concentration - - Weight 81.3 kg (179 lb 3.2 oz) 05/20/2023 4:08 P M SAMPLER AND TEST PREPARER Height 165 cm (5' 4.96 ) 05/20/2023 4:08 PM SAMPLER AND TEST PREPARER Body Mass Index 29.86 05/20/2023 4:08 PM SAMPLER AND TEST PREPARER Plan of Treatment Not on file Procedures Procedure Name Priority Date/Time Associated Diagnosis Comments DIABETIC EYE EXAM Routine 02/16/2023 HEPATITIS C ANTIBODY Routine 12/06/2022 7:31 AM CDT Encounter for hepatitis C screening test for low risk patient COMPREHENSIVE METABOLIC PANEL Routine 12/06/2022 7:31 AM CDT Type 2 diabetes mellitus with hyperlipidemia (HCC) HEMOGLOBIN A1C Routine 12/06/2022 7:31 AM CDT Type 2 diabetes mellitus with hyperlipidemia (HCC) LIPID PANEL Routine 12/06/2022 7:31 AM CDT Mixed hyperlipidemia ALBUMIN CREATININE RATIO, URINE Routine 12/06/2022 7:31 AM CDT DEXA AXIAL SKELETON BONE DENSITY 1 OR MORE SITES Schedule Routine, Read Routine (OP Routine) 04/30/2022 SCREENING MAMMOGRAM BILATERAL W JOZEF Schedule Routine, Read Routine (OP Routine) 04/30/2022 COLONOSCOPY Routine 08/12/2020 from Last 3 Months or Most Recently Relevant to Health Maintenance Results * Diabetic Eye Exam (02/16/2023) us Historical Provider MD HEALTH MAINTENANCE Final Result * Hepatitis C antibody Blood (12/06/2022 7:31 AM CDT) Hep C Ab NON-REACTI VE NON-REACT VIRGIE [facility] Comment: HCV antibody was non-reactive. There is no laboratory evidence of HCV infection. In most cases, no further action is required. However, if recent HCV exposure is suspected, a test for HCV RNA (test code 98794) is suggested. For additional information please refer to http://education.Tamago.eco4cloud/faq/KFS53k7 (This link is being provided for informational/ educational purposes only.) Blood 12/06/2022 7:31 AM CDT 12/06/2022 7:32 AM CDT us Mila Palma NP LAB MICROBIOLOGY - GENERAL ORDER EMILIE Final Result [facility] [address] [place] [address] * Albumin Creatinine Ratio, Urine (12/06/2022 7:31 AM CDT) Creatinine, ur 29 20 - 275 mg/dL [facility] Microalbumin, ur 0.3 See Note: mg/dL [facility] Comment: Reference Range: Reference Range Not established Microalbumin/creat ratio 10 <30 mcg/mg creat [facility] Comment: The ADA defines abnormalities in albumin excretion as follows: Albuminuria Category Result (mcg/mg creatinine) Normal to Mildly increased <30 Moderately increased 30-299 Severely increased > OR = 300 The ADA recommends that at least two of three specimens collected within a 3-6 month period be abnormal before considering a patient to be within a diagnostic category. 12/06/2022 7:31 AM CDT 12/06/2022 7:32 AM CDT Mila Palma NP LAB URINE ORDERABLES Final Resul t Performing Organization Address City/[facility] Co de Phone Number [facility] [address] [place] [address] * (ABNORMAL) Hemoglobin A1c (12/06/2022 7:31 AM CDT) Hgb A1C 9.5(H) <5.7 % of total Hgb [facility] Comment: For someone without known diabetes, a hemoglobin A1c value of 6.5% or greater indicates that they may have diabetes and this should be confirmed with a follow-up test. For someone with known diabetes, a value <7% indicates that their diabetes is well controlled and a value greater than or equal to 7% indicates suboptimal control. A1c targets should be individualized based on duration of diabetes, age, comorbid conditions, and other considerations. Currently, no consensus exists regarding use of hemoglobin A1c for diagnosis of diabetes for children. Blood 12/06/2022 7:31 AM CDT 12/06/2022 7:32 AM CDT Mila Palma NP LAB BLOOD ORDERABLES Final Resul t Performing Organization Address City/[facility]/ZIP Co de Phone Number [facility] [address] [place] [address] * Lipid panel (12/06/2022 7:31 AM CDT) Cholesterol 151 <200 mg/dL [facility] HDL 69 > OR = 50 mg/dL [facility] Triglycerides 68 <150 mg/dL [facility] LDL 68 mg/dL (calc) [facility] Comment: Reference range: <100 Desirable range <100 mg/dL for primary prevention; <70 mg/dL for patients with CHD or diabetic patients with > or = 2 CHD risk factors. LDL-C is now calculated using the Armani calculation, which is a validated novel method providing better accuracy than the Friedewald equation in the estimation of LDL-C. Timmy SS et al. KOFFI. 2013;310(19): 2251-5388 (http://education.Jibe Mobile/faq/YKJ467) Chol/HDL ratio 2.2 <5.0 (calc) [facility] Non-HDL, (LDL+VLDL) 82 <130 mg/dL (calc) [facility] Comment: For patients with diabetes plus 1 major ASCVD risk factor, treating to a non-HDL-C goal of <100 mg/dL (LDL-C of <70 mg/dL) is considered a therapeutic option. Blood 12/06/2022 7:31 AM CDT 12/06/2022 7:32 AM CDT us Mila Palma NP LAB BLOOD ORDERABLES Final Resul t [facility] [address] [place] [address] * (ABNORMAL) Comprehensive metabolic panel (12/06/2022 7:31 AM CDT) Pathologist [facility] Glucose 246(H) 65 - 99 mg/dL [facility] Comment: Fasting reference interval For someone without known diabetes, a glucose value >125 mg/dL indicates that they may have diabetes and this should be confirmed with a follow-up test. BUN 17 7 - 25 mg/dL [facility] Creatinine 0.70 0.50 - 1.05 mg/dL [facility] eGFR 94 > OR = 60 mL/min/1.7 3m2 [facility] BUN/creat ratio SEE NOTE: 6 - 22 (calc) [facility] Comment: Not Reported: BUN and Creatinine are within reference range. Sodium 138 135 - 146 mmol/L [facility] Potassium, pl 5.2 3.5 - 5.3 mmol/L [facility] Chloride 101 98 - 110 mmol/L [facility] CO2 29 20 - 32 mmol/L [facility] Calcium 9.0 8.6 - 10.4 mg/dL [facility] Protein, sr 6.1 6.1 - 8.1 g/dL [facility] Albumin 4.1 3.6 - 5.1 g/dL [facility] GLOBULIN 2.0 1.9 - 3.7 g/dL (calc) [facility] Alb/glob ratio 2.1 1.0 - 2.5 (calc) [facility] Bilirubin, total 0.5 0.2 - 1.2 mg/dL [facility] Alk phos 91 37 - 153 U/L [facility] AST 13 10 - 35 U/L [facility] ALT (SGPT) 11 6 - 29 U/L [facility] Blood 12/06/2022 7:31 AM CDT 12/06/2022 7:32 AM CDT us Mila Palma ULTRASONIC SEAMING MACHINE OPERATOR LAB BLOOD ORDERABLES Final Resul t [facility] [address] [address] [address] * Screening Mammogram Bilateral W Jozef (04/30/2022) Anatomical Region Laterality Modality Breast Bilateral Mammography Historical Provider IMG MAMMO PROCEDURES Divya l Result * Dexa Axial Skeleton Bone Density 1 or 2 Site (04/30/2022) Anatomical Region Laterality Modality Body N/A Radiographic Fabby ging us Historical Provider IMG DXA PROCEDURES Final Result * Colonoscopy (08/12/2020) Anatomical Region Laterality Modality Other us Historical Provider ENDOSCOPY PROCEDURES Divya l Result from Last 3 Months or Most Recently Relevant to Health Maintenance Insurance [employer] MEDICARE PPO [employer] MEDICARE PPO [employer] MEDICARE PPO Care Teams Assistant Professor Of Dietetics Relationship Specialty Start Date End Date Mila Palma NP [address] [place] [id number] PCP - General Family Practice 06/19/22
--- OUTSIDE RECORDS SUMMARY | 2024-07-23 14:39 | XMS_ITS | Clinical Summary ---
Author Organization [facility] at the Medical Office Building Address [address] [place] [address] Care Team Providers Care Armature Winder Name Role Phone Mila Palma NP Primary Care Provider [phone] Allergies Active Allergy Reactions Criticality Noted Date [...] 05/25/2023 Assessment & Plan (05/25/2023 6:35 AM PASSENGER SCREENER): New diagnosis Reviewed hospital admission notes dated 04/03/2023 Encouraged to keep appointment on 06/15/2023 with the Stroke [facility] at [facility] CVA (cerebral vascular accident) 05/05/2023 Right sided [...] hyperlipidemia Assessment & Plan (05/25/2023 6:34 AM PASSENGER SCREENER): Chronic, uncontrolled, but improved Reviewed hemoglobin A1c [...] 06/19/2022 Assessment & Plan (05/25/2023 6:34 AM PASSENGER SCREENER): Chronic, stable, controlled on medication Reviewed labs dated 12/06/2022 Continued on atorvastatin, refills sent to pharmacy per request Assessment & Plan (01/01/2023 4:59 PM CDT): Chronic, stable, controlled on medication Reviewed labs dated 12/06/2022 Continued on atorvastatin Assessment & Plan (06/22/2022 11:25 AM CDT): Chronicity and stability unknown-continued on atorvastatin. Ordered lipid panel. Acquired hypothyroidism 06/19/2022 Assessment & Plan (05/25/2023 6:34 AM PASSENGER SCREENER): Chronic, stable, controlled on medication Reviewed labs [...] months for annual exam, sooner if needed. Encounters Date Type Department Care Team Description 07/14/2024 Telephone [facility] Medical Group Primary Care [address] [place] [address] [place] [phone] Mila Palma NP from Last 3 Months Immunizations Immunization Administration Dates Next Due Influenza, Quadrivalent, Spl it, Preservative Free, Intramuscular 02/26/2018 Influenza, Trivalent, High D ose, Split, Preservative Free, Intramuscular 11/21/2018 Influenza, Unspecified 12/11/2022(Deferr ed: Patient Refused),12/21/2021(Deferred: Patient Refused),12/21/2021(Deferred: Patient Refused),12/20/2012,11/19/2011 Pneumococcal Conjugate PCV 13 11/21/2018 Surgical History Surgery Date Site/Laterality Comments FOOT SURGERY 03/23/2012 - 03/22/2013 Left SECTION 1976, 1983, 1986 Medical History Medical History Date Comments Diabetes mellitus (HCC) Hearing loss GERD (gastroesophageal reflux disease) Anxiety Osteoporosis Hypertension Family History Medical History Relation Name Comments Diabetes Father Type 2 Parkinsonism Father Type 2 Family history of Parkinson's disease - (Added by TW Conv) Emphysema Mother Cancer Paternal Grandfather ? Family history of malignant neoplasm - (Added by TW Conv) Relation Name Status Comments Father Type 2 (Age 91) Mother (Age 63) Paternal Grandfather ? Social History Tobacco Use Types Packs/Day Years Used Date Smoking Tobacco: Never Smokeless Tobacco: Never Comments:Prior datastage consultant er ror regarding smoker. AUDIT-C Answer Date [...] on file Legal Sex Female 12:13 PM PASSENGER SCREENER Gender Identity Not on file Sexual Orientation Not on file Obstetrics History Last Filed Vital Signs Vital Sign Reading Time Taken Comments Blood Pressure 128/82 05/20/2023 4:08 PM PASSENGER SCREENER Pulse 74 05/20/2023 4:08 PM PASSENGER SCREENER Temperature 36.4 C (97.6 F) 05/20/2023 4:08 PM PASSENGER SCREENER Respiratory Rate 14 05/20/2023 4:08 PM PASSENGER SCREENER Oxygen Saturation 97% 05/20/2023 4:08 PM PASSENGER SCREENER Inhaled Oxygen Concentration - - Weight 81.3 kg (179 lb 3.2 oz) 05/20/2023 4:08 P M PASSENGER SCREENER Height 165 cm (5' 4.96 ) 05/20/2023 4:08 PM PASSENGER SCREENER Body Mass Index 29.86 05/20/2023 4:08 PM PASSENGER SCREENER Plan of Treatment Health Maintenance Due Date Last Done Comments Foot Exam 1955 DTaP/Tdap/Td Vaccine (1 - Tdap) 1964 Hepatitis B Screening 11/16/1971 Zoster Vaccine (1 of 2) 11/16/2003 Pneumococcal vaccine 65+ (2 of 2 - PPSV23) 01/16/2019 11/21/2018 Breast Cancer Screening-Mammogram 04/30/2023 04/30/2022, 04/30/2022, 09/03/2016, Additional history exists Colon Cancer Screening-Colonoscopy 08/13/20232020 Hemoglobin A1C 10/03/2023 04/04/2023, 11/21, 09/17/2022 Covid-19 Vaccine (3 - 2023-2 5 season) 2023 06/10/2020, 05/20/2020 Albumin Creatinine Ratio, Urine 12/07/2023 eGFR 12/07/2023 12/06/2022 Depression Screening 12/12/2023 12/11/2022, 12/11/2022, 06/19/2022, Additional history exists Fall Risk Assessment 12/12/2023 12/11/2022 Well Visit 65+ 12/12/2023 12/11/2022 Lipid Panel 04/04/2024 04/04/2023, 12/06/2022 Osteoporosis Screening-Bone Density Scan 04/30/2024 04/30/2022, 04/30/2022 Influenza Vaccine (Season Ended) 2024 11/21/2018, 02/26/2018, 12/20/2012, Additional history exists Dilated Eye Exam 02/16/2025 02/16/2023, , 02/03/2022 Hepatitis C Screening Completed 12/06/2022 Procedures Procedure Name Priority Date/Time Associated Diagnosis [...] Maintenance Results * Diabetic Eye Exam (02/16/2023) Historical Provider MD HEALTH MAINTENANCE Final Result * Hepatitis C antibody Blood (12/06/2022 7:31 AM CDT) Hep C Ab NON-REACTI VE NON-REACT VIRGIE [facility] Comment: HCV antibody was non-reactive. There is no laboratory evidence of HCV infection. In most cases, no further action is required. However, if recent HCV exposure is suspected, a test for HCV RNA (test code 01082) is suggested. For additional information please refer to http://education.Haoguihua.Spectral Edge/faq/CCQ58b6 (This link is being provided for informational/ educational purposes only.) Blood 12/06/2022 7:31 AM CDT 12/06/2022 7:32 AM CDT Mila Palma NP LAB MICROBIOLOGY - GENERAL ORDER EMILIE Final Result [facility] [address] [address] [place] [address] * Albumin Creatinine Ratio, Urine (12/06/2022 7:31 [...] ORDERABLES Final Resul t Performing Organization Address [facility] de Phone Number [facility] [address] [place] [address] * (ABNORMAL) Hemoglobin A1c (12/06/2022 7:31 AM CDT) Hgb A1C 9.5(H) <5.7 % of total Hgb [facility] Comment: For someone without known diabetes, [...] ORDERABLES Final Resul t Performing Organization Address [facility] Co de Phone Number [facility]ST [facility] [address] [place] [address] * Lipid panel (12/06/2022 7:31 AM CDT) [...] equation in the estimation of LDL-C. Timmy BEGUM et al. KOFFI. 2013;310(19): 6463-0398 (http://education.Vital Juice Newsletter/faq/UNY391) Chol/HDL ratio 2.2 <5.0 (calc) [facility] Non-HDL, (LDL+VLDL) 82 <130 mg/dL (calc) [facility] Comment: For patients with diabetes plus 1 major ASCVD risk factor, treating to a non-HDL-C goal of <100 mg/dL (LDL-C of <70 mg/dL) is considered a therapeutic option. Blood 12/06/2022 7:31 AM CDT 12/06/2022 7:32 AM CDT us Mila Palma DISTRIBUTION SPEC LAB BLOOD ORDERABLES Final Resul t [facility] [address] [address] [facility] [place] [address] * (ABNORMAL) Comprehensive metabolic panel (12/06/2022 7:31 AM CDT) Glucose 246(H) 65 - 99 mg/dL [facility] [...] 12/06/2022 7:32 AM CDT us Mila Palma DISTRIBUTION SPEC LAB BLOOD ORDERABLES Final Resul t [place] [address] [address] [place] [place] [address] * Screening Mammogram Bilateral W Jozef (04/30/2022) Anatomical Region Laterality Modality Breast Bilateral Mammography us Historical Provider MD [place] MAMMO PROCEDURES Divya l Result * Dexa [...] PPO HUMANA CHOICE MEDICARE PPO Care Teams Armature Winder Relationship Specialty Start Date End Date Mila Palma NP [address] [place] [address] [id number] PCP - General Family Practice 06/19/22
--- OUTSIDE RECORDS SUMMARY | 2024-07-23 14:41 | XMS_ITS | Encounter Summary ---
Author Organization [facility] Address [facility]3 [facility] [place] [address] Care Team Providers Care Diesel Tractor Engine Mechanic Name Role Phone Joselyn Boykin LEATHER SHAVER-DEPUTY CHIEF MAGISTRATE Primary Care Provider + Jeremy Yang DO Unavailable [phone] Bella Duvall MD Unavailable [phone] Foreign Whitman MD Unavailable [phone] Reason for Visit * Reason Onset Date Comments MEDICATION REFILL 10/11/2023 Encounter Details Date Type Department Care Team (Late st Contact Info) Description 10/11/2023 Refill [facility] - [facility]5 [facility], [place] [phone] Joselyn Boykin, LEATHER SHAVER-DEPUTY CHIEF MAGISTRATE [facility] [phone] MEDICATION REFILL Social History Tobacco Use Types [...] Recorded Patient Health Questionnaire-2 Score 0 06/10/2023 [facility] of Occupat ional Health - Occupational Stress [...] place to sleep or slept in a care home (including now)? No 04/03/2023 Comments No Sex and Gender Information Value Date Recorded Sex Assigned at Female 04/05/2023 10:09 AM BELT NOTCHER Legal Sex Female 5:20 PM BELT NOTCHER Gender Identity Female 04/05/2023 10:09 AM BELT NOTCHER Sexual Orientation Straight 04/05/2023 10 :09 AM BELT NOTCHER documented as of this encounter Functional Status * Is person deaf or have serious hearing difficulty? Answer Date of Assessment Author No 04/03/2023 8:27 PM BELT NOTCHER Malorie Mccarty rk, RN * Is person blind or have serious difficulty seeing? Answer Date of Assessment Author No 04/03/2023 8:27 PM Malorie Escobar, RN * Does person have serious difficulty [...] Description 09/16/2024 10:30 AM CDT Office Visit [facility] - Internal Med [address] [place] [phone] Joselyn Boykin, LEATHER SHAVER-DEPUTY CHIEF MAGISTRATE [address] [place] [phone] 09/16/2024 3:40 PM CDT Office Visit [facility] - Endocrinology [address] [place] [phone] Shabana Holder MD [address] [place] [address] 2L [place] [phone] documented as of this encounter Visit Diagnoses Diagnosis TIA (transient ischemic attack) Unspecified transient cerebral ischemia documented in this encounter Care Teams Diesel Tractor Engine Mechanic Relationship Specialty Start Date End Date Joselyn Boykin APRN-DEPUTY CHIEF MAGISTRATE [address] [place] [phone] PCP - General Nurse Practitioner 06/01/23 Jeremy Yang DO [address] [place] [address] 2L DIV OF GEN INTERNAL MEDICINE [place], [place] Internal Medicine 11/03/23 Bella Duvall MD [address] [facility] 2L DIV OF [facility] INTERNAL [place], [place] Neurologist Neurology 11/03/23 Foreign Whitman MD [address] [place] [address] Neurologist Neurology 11/03/23 documented as of this encounter
--- OUTSIDE RECORDS SUMMARY | 2024-07-23 14:41 | XMS_ITS | Encounter Summary ---
Author Organization [facility] Address [facility] [place] [address] Care Team Providers Care Negative Restorer Name Role Phone Joselyn Boykin BACK DIGGER OPERATOR-CORPORATE DRIVER Primary Care Provider + Jeremy Yang DO Unavailable [phone] Bella Duvall MD Unavailable [phone] Foreign Whitman MD Unavailable [phone] Reason for Visit * Reason Onset Date Comments MEDICATION REFILL 07/11/2024 Encounter Details Date Type Department Care Team (Late st Contact Info) Description 07/11/2024 Refill [facility] - Internal Med [facility]5 [facility], [facility] [place] [phone] Joselyn Boykin, BACK DIGGER OPERATOR-CORPORATE DRIVER [facility] [phone] MEDICATION REFILL Social History Tobacco Use Types Packs/Day Years Used Date Smoking Tobacco: Never Smokeless Tobacco: Never Alcohol Use Standard Drinks/Week Comments Not Currently [...] Recorded Patient Health Questionnaire-2 Score 0 06/10/2023 [facility] [place] of Occupat ional Health - Occupational Stress [...] place to sleep or slept in a chcf (including now)? No 04/03/2023 Comments No Sex and Gender Information Value Date Recorded Sex Assigned at Female 04/05/2023 10:09 AM TRIM CARPENTER Legal Sex Female 5:20 PM TRIM CARPENTER Gender Identity Female 04/05/2023 10:09 AM TRIM CARPENTER Sexual Orientation Straight 04/05/2023 10 :09 AM TRIM CARPENTER documented as of this encounter Functional Status * Is person deaf or have serious hearing difficulty? Answer Date of Assessment Author No 02/11/2024 11:06 AM TRIM CARPENTER Francia Saini RN * Is person blind or have serious difficulty seeing? Answer Date of Assessment Author No 02/11/2024 11:06 AM Francia Fisher RN * Does person have serious difficulty walking/climbing stairs? Answer Date of Assessment Author No 02/11/2024 11:06 AM Francia Fisher RN * Does person have difficulty dressing/bathing? Answer Date of Assessment Author No 02/11/2024 11:06 AM Francia Fisher RN * Does person have difficulty doing errands alone? Answer Date of Assessment Author No 02/11/2024 11:06 AM Francia Fisher RN documented as of this encounter Mental Status * Does person have difficulty concentrating/remembering/making decisions? Answer Entry Date Author No 02/11/2024 11:06 AM Francia Fisher RN documented in this encounter Miscellaneous Notes * Telephone Encounter - Alhaji Car RN - 07/13/2024 10:16 AM CDT Refill Request Paige De Leon Recent Visits Date Type Provider Dept 06/10/23 Office Visit Joselyn Boykin [facility]-C[facility] Showing recent visits within past 540 days with a meds authorizing provider and meeting all other requirements Future Appointments Date Type Provider Dept 09/16/24 Appointment Joselyn Boykin APRN-CNP [facility] 2l Showing future appointments within next 150 days with a meds authorizing provider and meeting all other requirements Last Refill: 10/05/23 Allergies: Allergies[1] Pended Medication Order: Requested Prescriptions Pending Prescriptions Disp Refills venlafaxine XR 24hr (Effexor XR) 75 MG capsule 90 capsule 1 Sig: Take 1 (one) capsule by mouth daily with breakfast [1] Allergies Allergen Reactions Penicillins Swelling and Rash documented in this encounter Plan of Treatment Upcoming Encounters Date Type Department Care Team (Late st Contact Info) Description 09/16/2024 10:30 AM CDT Office Visit [facility] - Internal Med [address] [place] [address], [place] [address] Joselyn Boykin APRN-CORPORATE DRIVER [address] [phone] 09/16/2024 3:40 PM CDT Office Visit [facility] - Endocrinology [address] [place] [address], [place] [phone] Shabana Holder MD [address] [place] [address] 2L [place] [phone] documented as of this encounter Visit Diagnoses Not on filedocumented in this encounter Care Teams Negative Restorer Relationship Specialty Start Date End Date Joselyn Boykin, BACK DIGGER OPERATOR-CORPORATE DRIVER [facility] [phone] PCP - General Nurse Practitioner 06/01/23 Jeremy Yang DO [address] [place] [address] 2L DIV OF GEN INTERNAL MEDICINE [place], [place] Internal Medicine 11/03/23 Bella Duvall MD [address] [place] [address] 2L DIV OF GEN INTERNAL MEDICINE [place], [place] Neurologist Neurology 11/03/23 Foreign Whitman MD [address] [place] [address] Neurologist Neurology 11/03/23 documented as of this encounter
--- OUTSIDE RECORDS SUMMARY | 2024-07-23 14:41 | XMS_ITS | Encounter Summary ---
Author Organization [facility] Address [facility] [place] [address] Care Team Providers Care Dispatch Associate Name Role Phone Joselyn Boykin HIGHWAY PATROL OFFICER-PROPERTY CONSULTANT Primary Care Provider + Jeremy Yang DO Unavailable [phone] Bella Duvall MD Unavailable [phone] Foreign Whitman MD Unavailable [phone] Reason for Visit * Reason Onset Date Comments MEDICATION REFILL 09/17/2023 Encounter Details Date Type Department Care Team (Late st Contact Info) Description 09/17/2023 Refill [facility] - Internal Med [facility]5 [facility], [place] [phone] Joselyn Boykin, HIGHW[address] PATROL OFFICER-PROPERTY CONSULTANT [facility] [phone] MEDICATION REFILL Social History Tobacco Use Types [...] Recorded Patient Health Questionnaire-2 Score 0 06/10/2023 [facility] of Occupat ional Health - Occupational Stress [...] place to sleep or slept in a fpc (including now)? No 04/03/2023 Comments No Sex and Gender Information Value Date Recorded Sex Assigned at Female 04/05/2023 10:09 AM WINDOW REPAIRER Legal Sex Female 5:20 PM WINDOW REPAIRER Gender Identity Female 04/05/2023 10:09 AM WINDOW REPAIRER Sexual Orientation Straight 04/05/2023 10 :09 AM WINDOW REPAIRER documented as of this encounter Functional Status * Is person deaf or have serious hearing difficulty? Answer Date of Assessment Author No 04/03/2023 8:27 PM WINDOW REPAIRER Malorie Mccarty rk, RN * Is person [...] 09/16/2024 10:30 AM CDT Office Visit [facility] - Internal Med [address] [place] [phone] Joselyn Boykin APRN-PROPERTY CONSULTANT [address] [place] [phone] 09/16/2024 3:40 PM CDT Office Visit [facility] - Endocrinology [address] [place] [phone] Shabana Holder MD [address] [place] [address] 2L [place] [phone] documented as of this encounter Visit Diagnoses Not on filedocumented in this encounter Care Teams Dispatch Associate Relationship Specialty Start Date End Date Joselyn Boykin APRN-CNP [address] [place] [phone] PCP - General Nurse Practitioner 06/01/23 Jeremy Yang DO [address] [place] [address] 2L DIV OF GEN INTERNAL MEDICINE [place], [place] Internal Medicine 11/03/23 Bella Duvall MD [address] OF [facility] INTERNAL MEDICINE [place], [place] Neurologist Neurology 11/03/23 Foreign Whitman MD [address] [place] [address] Neurologist Neurology 11/03/23 documented as of this encounter
--- OUTSIDE RECORDS SUMMARY | 2024-07-23 14:41 | XMS_ITS | Continuity of Care Document ---
Author Organization [facility] Address [address] [place] [address] [address] [place] [address] Phone Care Team Providers Care Court Orderly Name Role Phone Tomy MS, OTR/L, CHT, Robin Unavailable Angelica vailable Procedures Procedure Date Orthotic Mgmt and Training Short Opponens Hand based Advance Directives Directive Yes / No Effective Date File Name No Information Encounters Encounter Description Practice Location Reason(s) For Visit Diagnoses Date Provider Providers Copied on Encounter [facility], [address] [place] [address], [place], [place], [id number], tel:[phone] [place] Nondisp fx of prox phalanx of r thm, 7thDPain in right finger(s)Other specified soft tissue disordersStiffne ss of right hand, not elsewhere classifiedOther lack of coordination [address]. [address] [facility], [address], [place], [place], [facility], [place]. tel:[phone] Referring Provider: Adalid Cowart, [address], [address]. tel:[phone] Family History Family Member Type Diagnosis Age At Onset No Information Payers Payer name Insurance type Covered republican ID Authoriza tion(s) [employer] [facility] [id number] Social History Type Description Quantity Date Captured Comments Sex Female Smoking Status No Information Chief Complaint And Reason For Visit No Information Reason For Referral Reason For Referral No Information History Of Present Illness Encounter Date Complaint History Of Prese nt Illness No Information Functional Status Date Functional Assessmen t No Information Instructions Date Instruction Additional Infor mation No Information Assessments Type Assessment Date No Information Patient Care Teams Name Effective Dates (start - stop) Status Members No Information
== END 2024-07-22 16:02 | disposition home or self-care (01) ==
DX: B37.31 Acute candidiasis of vulva and vagina (principal); N39.0 Urinary tract infection, site not specified; Z87.891 Personal history of nicotine dependence; I10 Essential (primary) hypertension; E78.5 Hyperlipidemia, unspecified; K21.9 Gastro-esophageal reflux disease without esophagitis; E11.9 Type 2 diabetes mellitus without complications; Z79.84 Long term (current) use of oral hypoglycemic drugs; E03.9 Hypothyroidism, unspecified; M81.0 Age-related osteoporosis without current pathological fracture; E55.9 Vitamin D deficiency, unspecified
CPT/HCPCS: 81003; 87086; 87186; 99213; G0463

== ENCOUNTER 2024-11-02 09:52 | Emergency (ER) | payer MEDICARE, SELFPAY ==
[2024-11-02 10:01] VITALS: BP 134/75; PULSE 79; RESP 18; TEMP 36; O2SAT 98
--- OUTSIDE RECORDS SUMMARY | 2024-11-02 10:01 | XMS_ITS | Encounter Summary ---
Author Organization [facility] Address [facility] [place] [address] Care Team Providers Care Poultry Processor Name Role Phone Ashutosh, Joselyn Bairon LEGUILLON DEBEADER-CALCINER OPERATOR HELPER Primary Care Provider + Jeremy Yang DO Unavailable [phone] Bella Duvall MD Unavailable [phone] Foreign Whitman MD Unavailable Reason for Visit * Reason Onset Date Comments MEDICATION REFILL 12/15/2023 Encounter Details Date Type Department Care Team (Late st Contact Info) Description 12/15/2023 Refill [facility] - [facility]5 [place] [phone] Rain Brandon MD [address] [place] [address] MEDICATION REFILL Social History Tobacco [...] Recorded Patient Health Questionnaire-2 Score 0 06/10/2023 [facility] [place] of Occupat ional Health - Occupational Stress [...] place to sleep or slept in a snf (including now)? No 04/03/2023 Comments No Sex and Gender Information Value Date Recorded Sex Assigned at Female 04/05/2023 10:09 AM DOUBLING MACHINE OPERATOR Legal Sex Female 5:20 PM DOUBLING MACHINE OPERATOR Gender Identity Female 04/05/2023 10:09 AM DOUBLING MACHINE OPERATOR Sexual Orientation Straight 04/05/2023 10 :09 AM DOUBLING MACHINE OPERATOR documented as of this encounter Functional Status [...] Care Team (Late st Contact Info) Description 01/20/2025 11:00 AM CDT Office Visit [facility] - Internal Med [address] [place] [phone] Joselyn Boykin APRN-CALCINER OPERATOR HELPER [address] [place] [phone] 01/20/2025 3:00 PM CDT Office Visit [facility] - Endocrinology [address] [place] [phone] Shabana Holder MD [address] [place] [address] 2L [place] [phone] documented as of this encounter Visit Diagnoses Not on filedocumented in this encounter Care Teams Poultry Processor Relationship Specialty Start Date End Date Joselyn Boykin APRN-CALCINER OPERATOR HELPER [address] [place] [phone] PCP - General Nurse Practitioner 06/01/23 Jeremy Yang DO [address] [place] [address] 2L DIV OF GEN INTERNAL MEDICINE [place], [place] Internal Medicine 11/03/23 Bella Duvall MD [address] [facility] 2L [facility] INTERNAL MEDICINE [place], [place] Neurologist Neurology 11/03/23 Foreign Whitman MD [address] [place] [address] Neurologist Neurology 11/03/23 documented as of this encounter
--- OUTSIDE RECORDS SUMMARY | 2024-11-02 10:01 | XMS_ITS | Clinical Summary ---
Author Organization [facility] Address [address] [place] [address] Care Team Providers Care Vehicle Maintenance Supervisor Name Role Phone Mila Palma NP Primary Care Provider [phone] Allergies Active Allergy Reactions Criticality Noted Date [...] 05/25/2023 Assessment & Plan (05/25/2023 6:35 AM MANUFACTURING DESIGN ENGINEER): New diagnosis Reviewed hospital admission notes dated 04/03/2023 Encouraged to keep appointment on 06/15/2023 with the Stroke [facility] at [facility] CVA (cerebral vascular accident) 05/05/2023 Right sided [...] hyperlipidemia Assessment & Plan (05/25/2023 6:34 AM MANUFACTURING DESIGN ENGINEER): Chronic, uncontrolled, but improved Reviewed hemoglobin A1c [...] 06/19/2022 Assessment & Plan (05/25/2023 6:34 AM MANUFACTURING DESIGN ENGINEER): Chronic, stable, controlled on medication Reviewed labs dated 12/06/2022 Continued on atorvastatin, refills sent to pharmacy per request Assessment & Plan (01/01/2023 4:59 PM CDT): Chronic, stable, controlled on medication Reviewed labs dated 12/06/2022 Continued on atorvastatin Assessment & Plan (06/22/2022 11:25 AM CDT): Chronicity and stability unknown-continued on atorvastatin. Ordered lipid panel. 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 AUDIT-C Answer Date [...] on file Legal Sex Female 12:13 PM MANUFACTURING DESIGN ENGINEER Gender Identity Not on file Sexual Orientation Not on file Obstetrics History Last Filed Vital Signs Vital Sign Reading Time Taken Comments Blood Pressure 128/82 05/20/2023 4:08 PM MANUFACTURING DESIGN ENGINEER Pulse 74 05/20/2023 4:08 PM MANUFACTURING DESIGN ENGINEER Temperature 36.4 C (97.6 F) 05/20/2023 4:08 PM MANUFACTURING DESIGN ENGINEER Respiratory Rate 14 05/20/2023 4:08 PM MANUFACTURING DESIGN ENGINEER Oxygen Saturation 97% 05/20/2023 4:08 PM MANUFACTURING DESIGN ENGINEER Inhaled Oxygen Concentration - - Weight 81.3 kg (179 lb 3.2 oz) 05/20/2023 4:08 P M MANUFACTURING DESIGN ENGINEER Height 165 cm (5' 4.96) 05/20/2023 4:08 PM MANUFACTURING DESIGN ENGINEER Body Mass Index 29.86 05/20/2023 4:08 PM MANUFACTURING DESIGN ENGINEER Plan of Treatment Health Maintenance Due Date Last Done Comments Foot Exam 1955 DTaP/Tdap/Td Vaccine (1 - Tdap) 1964 Hepatitis B Screening 11/16/1971 Zoster Vaccine (1 of 2) 11/16/2003 Pneumococcal vaccine 65+ (2 of 2 - PPSV23, PCV20, or PCV21) 01/16/2019 11/21/2018 Breast Cancer Screening-Mammogram 04/30/2023 04/30/2022, 04/30/2022, 09/03/2016, Additional history exists Colon Cancer Screening-Colonoscopy 08/13/20232020 Hemoglobin A1C 10/03/2023 04/04/2023, 11/21, 09/17/2022 Covid-19 Vaccine (3 - 2023-2 5 season) 2023 06/10/2020, 05/20/2020 Albumin Creatinine Ratio, Urine 12/07/2023 eGFR 12/07/2023 12/06/2022 Depression Screening 12/12/2023 12/11/2022, 12/11/2022, 06/19/2022, Additional history exists Fall Risk Assessment 12/12/2023 12/11/2022 Well Visit 65+ 12/12/2023 12/11/2022 Osteoporosis Screening-Bone Density Scan 04/30/2024 04/30/2022, 04/30/2022 Influenza Vaccine (#1) 2024 9, 02/26/2018, 12/20/2012, Additional history exists Dilated Eye Exam 02/16/2025 02/16/2023, , 02/03/2022 Lipid Panel 10/01/2025 10/01/2024, 03/23, 12/06/2022 Hepatitis C Screening Completed 12/06/2022 Procedures Procedure [...] Hep C Ab NON-REACTI VE NON-REACT VIRGIE [facility] Comment: HCV antibody was non-reactive. There is no laboratory evidence of HCV infection. In most cases, no further action is required. However, if recent HCV exposure is suspected, a test for HCV RNA (test code 57880) is suggested. For additional information please refer to http://education.Focus.OTI [employer]/faq/HFB67c5 (This link is being provided for informational/ educational purposes only.) Blood 12/06/2022 7:31 AM CDT 12/06/2022 7:32 AM CDT us Mila Palma NP LAB MICROBIOLOGY - GENERAL ORDER EMILIE Final Result [facility] [address] [place] [address] * Albumin Creatinine Ratio, Urine (12/06/2022 7:31 [...] AM CDT us Mila Palma NP LAB URINE ORDERABLES Final Resul t [facility] [address] [place] [address] * (ABNORMAL) Hemoglobin A1c (12/06/2022 7:31 AM CDT) Pathologist [facility] Hgb A1C 9.5(H) <5.7 % of total Hgb [facility] Comment: For someone without known diabetes, [...] NP LAB BLOOD ORDERABLES Final Resul t [facility] [address] [place] [address] * Lipid panel (12/06/2022 7:31 AM CDT) [...] LDL-C. Timmy BEGUM et al. KOFFI. 2013;310(19): 2798-0369 (http://education.Risk I/O/faq/OET583) Chol/HDL ratio 2.2 <5.0 (calc) [facility] [...] NP LAB BLOOD ORDERABLES Final Resul t [facility] [address] [address] [address] [address] * (ABNORMAL) Comprehensive metabolic panel (12/06/2022 7:31 [...] NP LAB BLOOD ORDERABLES Final Resul t [facility] [address] [place] [address] * Screening Mammogram Bilateral W Jozef (04/30/2022) Anatomical Region Laterality Modality Breast Bilateral Mammography us Historical Provider [facility] MAMMO PROCEDURES Divya l Result * Dexa Axial Skeleton Bone Density 1 or 2 Site (04/30/2022) Anatomical Region Laterality Modality Body N/A Radiographic Fabby ging Historical Provider [facility] DXA PROCEDURES Final Result * Colonoscopy (08/12/2020) Anatomical Region Laterality Modality Other Historical Provider ENDOSCOPY PROCEDURES Divya l Result from Last 3 Months or Most Recently Relevant to Health Maintenance Insurance [employer] MEDIC[facility] PPO [facility] [employer] CHOICE MEDICARE PPO Care Teams Vehicle Maintenance Supervisor Relationship Specialty Start Date End Date Mila Palma NP [address] [place] [id number] PCP - General Family Practice 06/19/22
--- OUTSIDE RECORDS SUMMARY | 2024-11-02 10:02 | XMS_ITS | Clinical Summary ---
Author Organization [facility] Address [address] [place] [address] Care Team Providers Care Oleo Hasher And Renderer Name Role Phone Joselyn Boykin YARD OPERATOR-FINE HAIRER Primary Care Provider + Jeremy Yang DO Unavailable [phone] Bella Duvall MD Unavailable [phone] Foreign Whitman MD Unavailable Source Comments [facility],non-owned Affiliates and Associated Physician Practices is amultiple site organization consisting of ambulatory clinics and hospital sitesin [place], [place], [place] and [place]. This disclosure is being madepursuant to the Care Everywhere program and may not contain all information available regarding this patient. Last updated 17.[facility] Allergies Active Allergy Reactions Criticality Noted Date [...] days 3 mL 4 09/09/19 24 Active metFORMIN ER 24hr (Glucophage XR) [...] daily 90 tablet 3 11/30/19 24 Active polyethylene glycol (Gavilyte-C) 240 g solution Drink half the prep at 5 pm the evening prior to the procedure. Finish the remaining prep at 4 am the morning of the procedure. 4000 mL 01/29/20 24 Active pantoprazole EC (Protonix) 40 MG tablet Take 1 (one) tablet by mouth once daily 30 tablet 5 03/24/19 25 Active venlafaxine XR 24hr (Effexor XR) 75 MG capsule Take 1 (one) capsule by mouth daily with breakfast 90 capsule 1 07/16/19 25 Active fluconazole (Diflucan) 150 MG tabletIndication s:Vaginal candidiasis Take 1 (one) tablet by mouth every 3 days 3 tablet 08/25/19 25 Active insulin glargine (Lantus/Semglee) 100 units/mL pen Inject 20 (twenty) Units subcutaneously at bedtime 30 mL 11 09/17/19 25 Active lisinopril (Prinivil; Zestril) 10 MG tablet Take 1 tablet by mouth once daily 30 tablet 3 09/28/19 25 Active ondansetron (Zofran) 4 MG tabletIndication s:Nausea Take 1 (one) tablet by mouth every 8 hours as needed for Nausea/Vomiting 10 tablet 1 10/14/19 25 Active propranolol ER 24hr (Inderal LA) 120 MG capsule Take 1 (one) capsule by mouth once daily 60 capsule 3 10/14/19 25 Active propranolol ER 24hr (Inderal LA) 120 MG capsule Take 1 (one) capsule by mouth once daily 60 capsule 3 12/14/19 24 025 Discontin ued(Reord er) ondansetron (Zofran) 4 MG tabletIndication s:Nausea Take 1 (one) tablet by mouth every 8 hours as needed for Nausea/Vomiting 10 tablet 1 12/18/19 24 025 Discontin ued(Reord er) Active Problems Problem Noted Date Diagnosed Date Vaginal candidiasis 08/24/2024 Assessment & Plan (08/29/2024 11:24 AM CDT): - immunocompetent, diabetic, on jardiance with good hygiene having recurrent vaginal candidiasis since July - evident on exam - has tried fluconazole initially in July 2 tablet course and then later with additional tablet yest symtpoms persist PLNA: - 3 tablets of fluconazole taken 72 hours apart - Discontinue Jardiance - See other diabetes management in other problem TIA (transient ischemic attack) 11/30/2023 Family history [...] without long-term current use of insulin 11/26/2011 Assessment & Plan (08/29/2024 11:22 AM CDT): - poorly controlled T2DM on metformin, jardiance and Ozempic - not taking ozempic due to insurance reasons - Having yeast infections on Jardiance - not wanting insulin PLAN: - Discontinue jardiance - Start Glipizide for glucose control, 5mg BID, instructed to take before meals to reduce chance of hypoglycemia - Follow up with endocrine for further management and start ozempic again Polyneuropathy 11/26/2011 Dizziness and giddiness 11/26/2011 Other abnormalities of gait and mobility 012 Encounters Date Type Department Care Team Description 10/11/2024 Refill [facility] - Neurology [address] [place] [phone] Chary Smith MD MEDICATION REFILL 10/11/2024 Refill [facility] - Internal Med [address] [place] [phone] Joselyn Boykin APRN-FINE HAIRER MEDICATION REFILL 09/28/2024 Orders Only [facility] - Internal Med [address] [place] [phone] Joselyn Boykin YARD OPERATOR-FINE HAIRER Acquired hypothyroidism 09/27/2024 Refill [facility] - Internal Med [address] [place] [phone] Ellie Herrera YARD OPERATOR-FINE HAIRER Refill Request 09/16/2024 3:40 PM CDT Office Visit [facility] - Endocrinology [address] [place] [phone] Shabana Holder MD Type 2 diabetes mellitus with hyperglycemia, without long-term current use of insulin (HCC) (Primary Dx); Hypothyroidism, acquired 09/16/2024 Travel 08/24/2024 2:00 PM CDT Office Visit [facility] - Internal Med [address] [place] [phone] Concepción Valdes MD Vaginal candidiasis (Primary Dx); Type 2 diabetes mellitus with hyperglycemia, without long-term current use of insulin (HCC) 08/24/2024 Travel 08/11/2024 Orders Only [facility] - Internal Medicine [address] [place] [address], [address] [phone] Joselyn Boykin APRN-CNP Yeast infection 08/11/2024 Telephone [facility] - Internal Med [address] [place] [address], [place] [phone] Joselyn Boykin APRN-CNP YEAST INFECTION 08/10/2024 Telephone [facility] - Internal Med [facility] [facility], [place] [phone] Joselyn Boykin, EDDA Forms/questionnaires from Last 3 Months Immunizations Immunization Administration Dates Next Due Tempeest primary monoval ent 12+ yr 0.3mL Purple [...] Date Recorded Patient Health Questionnaire-2 Score 0 09/09/2024 [facility] of Occupat ional Health - Occupational Stress [...] place to sleep or slept in a senior living (including now)? No 04/03/2023 Comments No Sex and Gender Information Value Date Recorded Sex Assigned at Female 04/05/2023 10:09 AM X RAY SERVICE TECHNICIAN Legal Sex Female 5:20 PM X RAY SERVICE TECHNICIAN Gender Identity Female 04/05/2023 10:09 AM X RAY SERVICE TECHNICIAN Sexual Orientation Straight 04/05/2023 10 :09 AM X RAY SERVICE TECHNICIAN Last Filed Vital Signs Vital Sign Reading Time Taken Comments Blood Pressure 102/65 09/16/2024 12:58 PM CDT Pulse 64 09/16/2024 12:58 PM CDT Temperature 36.4 C (97.5 F) 08/24/2024 1:50 PM CDT Respiratory Rate 16 08/24/2024 1:50 PM CDT Oxygen Saturation 92% 09/16/2024 12:58 PM CDT Inhaled Oxygen Concentration - - Weight 75.8 kg (167 lb) 09/16/2024 12:58 PM CDT Height 165.1 cm (5' 5) 08/24/2024 1:50 PM CDT Body Mass Index 27.79 08/24/2024 1:50 PM CDT Plan of Treatment Upcoming Encounters Date Type Department Care Team (Late st Contact Info) Description 01/20/2025 11:00 AM CDT Office Visit [facility] - Internal Med [address] [place] [phone] Joselyn Boykin, YARD OPERATOR-FINE HAIRER [address] [place] [phone] 01/20/2025 3:00 PM CDT Office Visit [facility] - Endocrinology [address] [place] [phone] Shabana Holder MD [address] [place] [address] [place] [phone] Health Maintenance Due Date Last Done Comments [...] PNEUMOCOCCAL VACCINE 50+ (2 of 2 - PPSV23, PCV20, or PCV21) 01/16/2019 11/21/2018 DIABETES-FOOT EXAM WITH MONOFILAMENT 04/03/2023 COVID-19 VACCINE ( season) 2023 06/10/2020, 05/20/2020 MEDICARE AWV CALENDAR YEAR 2024 MAMMOGRAM 04/30/2024 04/30/2022, 08/21, 03/10/2014, Additional history exists INFLUENZA VACCINE (#1) 2024 9, 11/21/2018, 02/26/2018, Additional history exists DIABETES-HGB A1C 11/24/2024 08/24/2024, 11/2023, 04/04/2023, Additional history exists DIABETES - URINE PROTEIN SCREENING 10/01/2025 10/01/2024, 12/13/2022 (Done Outside Per Report), 12/02/2012 DIABETES-SERUM CREATININE 10/01/20252024, 04/04/2023, 12/02/2012 DIABETES RETINOPATHY SCREENING 05/07/2026 05/07/2024, 12/22/2022 (Done Outside Per Patient) COLON MONITORING 02/10/2034 02/11/2024, , 08/12/2020 COLONOSCOPY - COLON CA SCREENING 02/10/2034 02/11/2024, 02/11/2024, 08/12/2020 Colorectal Cancer Screening 02/10/2034 BONE DENSITY TESTING Completed 03/24/2022 (Done Outside Per Report) DEPRESSION SCREENING Completed 08/24/2024, 04/02/19 24 HEPATITIS B VACCINE Aged Out No longe [...] Procedure Name Priority Date/Time Associated Diagnosis Comments TSH 10/01/2024 7:56 AM CDT T4 FREE 10/01/2024 7:56 AM CDT T3 FREE Routine 10/01/2024 7:56 AM CDT Type 2 diabetes mellitus with hyperglycemia, without long-term current use of insulin (HCC) Hypothyroidism, acquired MICROALB/CREAT RATIO URINE RANDOM PANEL Routine 10/01/2024 7:56 AM CDT Type 2 diabetes mellitus with hyperglycemia, without long-term current use of insulin (HCC) LIPID PROFILE Routine 10/01/2024 7:56 AM CDT Type 2 diabetes mellitus with hyperglycemia, without long-term current use of insulin (HCC) COMPREHENSIVE METABOLIC PANEL Routine 10/01/2024 7:56 AM CDT Type 2 diabetes mellitus with hyperglycemia, without long-term current use of insulin (HCC) HEMOGLOBIN A1C - POINT OF CARE (AMB) [facility] Routine 08/24/2024 2:43 PM CDT Type 2 diabetes mellitus with hyperglycemia, without long-term current use of insulin (HCC) EYE EXAM Routine 05/07/2024 1:33 PM X RAY SERVICE TECHNICIAN ENDOSCOPY, COLON, SCREENING Routine 02/11/2024 11:17 AM X RAY SERVICE TECHNICIAN MAMMO BILAT SCREENING Routine 09/03/2016 3:09 PM CDT from Last 3 Months or Most Recently Relevant to Health Maintenance Results * MICROALB/CREAT RATIO URINE RANDOM PANEL (10/01/2024 7:56 AM CDT) Creatinine Urine 35 20 - 275 mg/dL [facility] Microalbumin Urine <0.2 mg/dL [facility] Comment: Reference Range Not established Microalbumin/Creat inine Ratio NOTE <30 mg/g creat [facility] Comment: NOTE: The urine albumin value is less than 0.2 mg/dL therefore we are unable to calculate excretion and/or creatinine ratio. The ADA defines abnormalities in albumin excretion as follows: Albuminuria Category Result (mg/g creatinine) Normal to Mildly increased <30 Moderately increased 30-299 Severely increased > OR = 300 The ADA recommends that at least two of three specimens collected within a 3-6 month period be abnormal before considering a patient to be within a diagnostic category. Test Performed at: [facility] [place] [address] OWEN BENTON MD Urine URINE SPECIMEN OBTAINED BY CLEAN CATCH PROCEDURE / Unknown 10/01/2024 7:56 AM CDT 10/01/2024 7:59 AM CDT us Shabana Holder MD LAB - URINE CHEMISTRY ORDERABLE S Final Result Performing Organization Address [facility] Co de Phone Number [facility] [address] [place] [address] * (ABNORMAL) T3 FREE (10/01/2024 7:56 AM CDT) T3 Free 2.2(L) 2.3 - 4.2 pg/mL [facility] Comment: REPORT COMMENT: FASTING:NO Test Performed at: [employer] [address] [place] [address] [place] [address] OWEN BENTON MD Blood BLOOD SPECIMEN / Unknown 10/01/2024 7:56 AM CDT 10/01/2024 7:59 AM CDT us Shabana Holder MD LAB - CHEMISTRY ORDERABLES Divya l Result Performing Organization Address [facility] Co de Phone Number [facility] [address] [place] [address] * (ABNORMAL) COMPREHENSIVE METABOLIC PANEL (10/01/2024 7:56 AM CDT) Glucose 140(H) 65 - 139 mg/dL [facility] Comment: Non-fasting reference interval BUN 17 7 - 25 mg/dL [facility] Creatinine 0.65 0.60 - 1.00 mg/dL [facility] eGFR by Cystatin C 95 > OR = 60 mL/min/1. 73m2 [facility] BUN/Creatinine Ratio SEE NOTE: 6 - 22 (calc) [facility] Comment: Not Reported: BUN and Creatinine are within reference range. Sodium 137 135 - 146 mmol/L [facility] Potassium 4.4 3.5 - 5.3 mmol/L [facility] Chloride 101 98 - 110 mmol/L [facility] CO2 28 20 - 32 mmol/L [facility] Calcium 8.8 8.6 - 10.4 mg/dL [facility] Protein Total 6.2 6.1 - 8.1 g/dL [facility] Albumin 3.9 3.6 - 5.1 g/dL [facility] Globulin Total 2.3 1.9 - 3.7 g/dL (calc) [facility] Albumin/Globulin Ratio 1.7 1.0 - 2.5 (calc) [facility] Bilirubin Total 0.5 0.2 - 1.2 mg/dL [facility] Alkaline Phosphatase 80 37 - 153 U/L [facility] AST 14 10 - 35 U/L [facility] ALT 10 6 - 29 U/L [facility] Comment: Test Performed at: [place] [address] OWEN BENTON MD Blood BLOOD SPECIMEN / Unknown 10/01/2024 7:56 AM CDT 10/01/2024 7:59 AM CDT Shabana Holder MD LAB - CHEMISTRY ORDERABLES Divya l Result Performing Organization Address [facility] de Phone Number [facility] [phone] [place] [address] * TSH (10/01/2024 7:56 AM CDT) Pathologist [facility] TSH 0.99 0.40 - 4.50 mIU/L [facility] Comment: Test Performed at: [employer] [address] OWEN BENTON MD 10/01/2024 7:56 AM CDT 10/01/2024 7:59 AM CDT Shabana Holder MD LAB - CHEMISTRY ORDERABLES Divya l Result Performing Organization Address City/[facility] Co de Phone Number [facility] [phone] [place] [phone] * T4 FREE (10/01/2024 7:56 AM CDT) Pathologist [facility] T4 Free 1.8 0.8 - 1.8 ng/dL [facility] Comment: Test Performed at: [facility] [place] [address] OWEN BENTON MD 10/01/2024 7:56 AM CDT 10/01/2024 7:59 AM CDT Shabana Holder MD LAB - CHEMISTRY ORDERABLES Divya l Result Performing Organization Address City/[facility]/ZIP Co de Phone Number [facility] [phone] [place], [place] [phone] * LIPID PROFILE (10/01/2024 7:56 AM CDT) Cholesterol 136 <200 mg/dL [facility] HDL Cholesterol 74 > OR = 50 mg/dL [facility] Triglycerides 38 <150 mg/dL [facility] LDL Calculated 51 mg/dL (calc) [facility] Comment: Reference range: <100 Desirable range <100 mg/dL for primary prevention; <70 mg/dL for patients with CHD or diabetic patients with > or = 2 CHD risk factors. LDL-C is now calculated using the Timmy-Ericka calculation, which is a validated novel method providing better accuracy than the Friedewald equation in the estimation of LDL-C. Timmy BEGUM et al. KOFFI. 2013;310(19): 7232-2953 (http://education.[employer].com/faq/KHJ306) CHOL/HDLC RATIO 1.8 <5.0 (calc) [facility] Non HDL Cholesterol 62 <130 mg/dL (calc) [facility] Comment: For patients with diabetes plus 1 major ASCVD risk factor, treating to a non-HDL-C goal of <100 mg/dL (LDL-C of <70 mg/dL) is considered a therapeutic option. Test Performed at: [facility] [address] [facility] [place] [address] OWEN BENTON MD Blood BLOOD SPECIMEN / Unknown 10/01/2024 7:56 AM CDT 10/01/2024 7:59 AM CDT us Shabana Holder MD LAB - CHEMISTRY ORDERABLES Divya shane Result Performing Organization Address City/[facility]/ZIP Co de Phone Number [facility] [address] [place] [address] * HEMOGLOBIN A1C - POINT OF CARE (AMB) U (08/24/2024 2:43 PM CDT) Hemoglobin A1c POCT 9.9 % HELEN Oropeza [facility] Blood BLOOD SPECIMEN / Unknown 08/24/2024 2:43 PM CDT Stefanie Elam DO LAB - POINT OF CARE ORDERABLE S Final Result HELEN Oropeza [facility] [address] [facility] [place] [address], [facility] [phone] * EYE EXAM (05/07/2024 1:33 PM X RAY SERVICE TECHNICIAN) Anatomical Region Laterality Modality Other us Historical Provider MD SCANNING ONLY Final Res ult * ENDOSCOPY, COLON, SCREENING (02/11/2024 11:17 AM X RAY SERVICE TECHNICIAN) Report Endoscopy POC Endoscopy Department Report _ [...] and oxygen saturations were monitored continuously. The CF-[id number] was introduced through the anus and advanced to the terminal ileum, with identification of the appendiceal orifice and IC valve. The colonoscopy was performed without difficulty. The patient tolerated the procedure well. The quality of the bowel preparation was evaluated using the BBPS ([place] Bowel Preparation Scale) with scores of: Right [...] non-vargas portions. Procedure Code(s): --- Professional --- 97085, Colonoscopy, flexible; with removal of tumor(s), polyp(s), or other lesion(s) by snare technique Diagnosis Code(s): --- Professional --- Z12.11, Encounter for screening for malignant neoplasm of colon D12.5, Benign neoplasm of sigmoid colon CPT copyright 2021 [employer]. All rights reserved. The codes documented in this report are preliminary and upon home health travel pt review may be revised to meet current compliance requirements. Jamar Edmondson MD 02/11/2024 12:07:33 PM Note Initiated On: 02/11/2024 11:17 AM Number of Addenda: [address] [address] [facility] 02/11/2024 11:1 7 AM X RAY SERVICE TECHNICIAN Jamar Edmondson MD GI PROCEDURE ORDERABLES Edited Result - Final [facility] * MAMMO BILAT SCREENING (09/03/2016 3:09 PM [...] Martin MD MAMMO ORDERABLES Final Resu lt from Last 3 Months or Most Recently Relevant to Health Maintenance Insurance [facility] MEDICARE ADV HMO & PPO Advance Directives * Full Code (Latest Code Status on File) Date Activated Date Inactivated Comments 04/03/2023 8:01 PM 04/04/2023 5:16 PM Care Teams Oleo Hasher And Renderer Relationship Specialty Start Date End Date Joselyn Boykin, GILL-HONORIO [address] [place] [address] [place] [address] PCP - General Nurse Practitioner 06/01/23 Jeremy Yang DO [address] [facility] 2L DIV OF [facility] INTERNAL [place], [place] Internal Medicine 11/03/23 Bella Duvall MD [address] [facility] 2L DIV OF [facility] [place] [place], [place] Neurologist Neurology 11/03/23 Foreign Whitman MD [address] [place] [address] Neurologist Neurology 11/03/23
--- OUTSIDE RECORDS SUMMARY | 2024-11-02 10:02 | XMS_ITS | Encounter Summary ---
Author Organization [facility] Address [facility] [place] [address] Care Team Providers Care Formulator Compounder Name Role Phone Joselyn Boykin CASTING ASSISTANT-BILLET ASSEMBLER Primary Care Provider + Jeremy Yang DO Unavailable [phone] Bella Duvall MD Unavailable [phone] Foreign [place] MD Unavailable [phone] Reason for Visit * Reason Onset Date Comments MEDICATION REFILL 01/02/2024 Encounter Details Date Type Department Care Team (Late st Contact Info) Description 01/02/2024 Refill [facility] - Endocrinology [address] [place] [address], [place] [phone] Shabana Holder MD [address] [place] [address] [place] [address] MEDICATION REFILL Social History Tobacco [...] Recorded Patient Health Questionnaire-2 Score 0 06/10/2023 [facility] [place] of Occupat ional Health - Occupational Stress [...] place to sleep or slept in a nursing home (including now)? No 04/03/2023 Comments No Sex and Gender Information Value Date Recorded Sex Assigned at Female 04/05/2023 10:09 AM REHANGER Legal Sex Female 5:20 PM REHANGER Gender Identity Female 04/05/2023 10:09 AM REHANGER Sexual Orientation Straight 04/05/2023 10 :09 AM REHANGER documented as of this encounter Functional Status * Is person deaf or have serious hearing difficulty? Answer Date of Assessment Author No 04/03/2023 8:27 PM REHANGER Malorie Mccarty, RN * Is person blind [...] Description 01/20/2025 11:00 AM CDT Office Visit [facility] - Internal Med [address] [place] [phone] Joselyn Boykin APRN-HONORIO [address] [place] [phone] 01/20/2025 3:00 PM CDT Office Visit [facility] - Endocrinology [address] [place] [phone] Shabana Holder MD [address] [place] [address] [address] [place] [address] documented as of this encounter Visit Diagnoses Not on filedocumented in this encounter Care Teams Formulator Compounder Relationship Specialty Start Date End Date Joselyn Boykin APRN-CNP [address] [place] [phone] PCP - General Nurse Practitioner 06/01/23 Jeremy Yang DO [address] [place] [address] 2L DIV OF GEN INTERNAL MEDICINE [place], [place] Internal Medicine 11/03/23 Bella Duvall MD [address] INTERNAL MEDICINE [place], [place] Neurologist Neurology 11/03/23 Foreign [place] MD [address] [place] [address] Neurologist Neurology 11/03/23 documented as of this encounter
--- OUTSIDE RECORDS SUMMARY | 2024-11-02 10:02 | XMS_ITS | Encounter Summary ---
Author Organization [facility] Address [facility] [place] [address] Care Team Providers Care Stock Transfer Clerk Name Role Phone Joselyn Boykin X RAY DEVELOPING MACHINE OPERATOR-TIRE DEBEADER Primary Care Provider + Jeremy Yang DO Unavailable [phone] Bella Duvall MD Unavailable Foreign [place] MD Unavailable [phone] Reason for Visit * Reason Onset Date Comments MEDICATION REFILL 10/11/2023 Encounter Details Date Type Department Care Team (Late st Contact Info) Description 10/11/2023 Refill [facility] - Internal Med [facility], [place] [phone] Joselyn Boykin, X RAY DEVELOPING MACHINE OPERATOR-TIRE DEBEADER [facility] [phone] MEDICATION REFILL Social History Tobacco Use Types [...] Recorded Patient Health Questionnaire-2 Score 0 06/10/2023 [facility] [place] of Occupat ional Health - Occupational Stress [...] Sex Assigned at Female 04/05/2023 10:09 AM MICROBIOLOGY SOIL SCIENTIST Legal Sex Female 5:20 PM MICROBIOLOGY SOIL SCIENTIST Gender Identity Female 04/05/2023 10:09 AM MICROBIOLOGY SOIL SCIENTIST Sexual Orientation Straight 04/05/2023 10 :09 AM MICROBIOLOGY SOIL SCIENTIST documented as of this encounter Functional Status * Is person deaf or have serious hearing difficulty? Answer Date of Assessment Author No 04/03/2023 8:27 PM MICROBIOLOGY SOIL SCIENTIST Malorie Mccarty rk, RN * Is person [...] Description 01/20/2025 11:00 AM CDT Office Visit [facility] - Internal Med [address] [place] [phone] Joselyn Boykin, X RAY DEVELOPING MACHINE OPERATOR-TIRE DEBEADER [address] [place] [phone] 01/20/2025 3:00 PM CDT Office Visit [facility] - Endocrinology [address] [place] [phone] Shabana Holder MD [address] [place] [address] 2L [place] [phone] documented as of this encounter Visit Diagnoses Diagnosis TIA (transient ischemic attack) Unspecified transient cerebral ischemia documented in this encounter Care Teams Stock Transfer Clerk Relationship Specialty Start Date End Date Joselyn Boykin APRN-TIRE DEBEADER [address] [place] [phone] PCP - General Nurse Practitioner 06/01/23 Jeremy Yang DO [address] [place] [address] 2L DIV OF GEN INTERNAL MEDICINE [place], [place] Internal Medicine 11/03/23 Bella [place] MD [address] [facility] 2L DIV OF [facility] INTERNAL [place], [place] Neurologist Neurology 11/03/23 Foreign [place] MD [address] [place] [address] Neurologist Neurology 11/03/23 documented as of this encounter
--- OUTSIDE RECORDS SUMMARY | 2024-11-02 10:02 | XMS_ITS | Encounter Summary ---
Author Organization [facility] Address [facility] [place] [address] Care Team Providers Care Leadership Development Consultant Name Role Phone Joselyn Boykin NEWSPAPER DELIVERY COUNSELOR-SEWER DIGGER Primary Care Provider + Jeremy Yang DO Unavailable [phone] Bella Duvall MD Unavailable [phone] Foreign Whitman MD Unavailable [phone] Reason for Visit * Reason Onset Date Comments MEDICATION REFILL 07/11/2024 Encounter Details Date Type Department Care Team (Late st Contact Info) Description 07/11/2024 Refill [facility] - Internal Med [facility], [facility] [place] [phone] Joselyn Boykin, NEWSPAPER DELIVERY COUNSELOR-SEWER DIGGER [facility] [phone] MEDICATION REFILL Social History Tobacco Use Types [...] Recorded Patient Health Questionnaire-2 Score 0 06/10/2023 [facility] [place] of Occupat ional Health - Occupational Stress [...] place to sleep or slept in a residential (including now)? No 04/03/2023 Comments No Sex and Gender Information Value Date Recorded Sex Assigned at Female 04/05/2023 10:09 AM LINE MAINTENANCE SUPERVISOR Legal Sex Female 5:20 PM LINE MAINTENANCE SUPERVISOR Gender Identity Female 04/05/2023 10:09 AM LINE MAINTENANCE SUPERVISOR Sexual Orientation Straight 04/05/2023 10 :09 AM LINE MAINTENANCE SUPERVISOR documented as of this encounter Functional Status * Is person deaf or have serious hearing difficulty? Answer Date of Assessment Author No 02/11/2024 11:06 AM LINE MAINTENANCE SUPERVISOR Francia Saini RN * Is person blind [...] 06/10/23 Office Visit Joselyn Boykin [facility]-C[facility] Showing recent visits within past 540 days with a meds authorizing provider and meeting all other requirements Future Appointments Date Type Provider Dept 09/16/24 Appointment Joselyn Boykin APRN-CNP [facility] 2l Showing future appointments within next 150 [...] Description 01/20/2025 11:00 AM CDT Office Visit [facility] - Internal Med [address] [place] [address], [place] [address] Joselyn Boykin APRN-SEWER DIGGER [address] [phone] 01/20/2025 3:00 PM CDT Office Visit [facility] - Endocrinology [address] [place] [address], [place] [phone] Shabana Holder MD [address] [place] [address] [address] [place] [phone] documented as of this encounter Visit Diagnoses Not on filedocumented in this encounter Care Teams Leadership Development Consultant Relationship Specialty Start Date End Date Joselyn Boykin, NEWSPAPER DELIVERY COUNSELOR-SEWER DIGGER [facility] [phone] PCP - General Nurse Practitioner 06/01/23 Jeremy Yang DO [address] [place] [address] 2L DIV OF GEN INTERNAL MEDICINE [place], [place] Internal Medicine 11/03/23 Bella Duvall MD [address] [place] [address] 2L DIV OF GEN INTERNAL MEDICINE [place], [place] Neurologist Neurology 11/03/23 Foreign Whitman MD [address] [place] [address] Neurologist Neurology 11/03/23 documented as of this encounter
--- OUTSIDE RECORDS SUMMARY | 2024-11-02 10:02 | XMS_ITS | Encounter Summary ---
Author Organization [facility] Address [facility] [place] [address] Care Team Providers Care Economic Research Analyst Name Role Phone Joselyn Boykin CASE INVESTIGATOR-TIMBER TREATING TANK OPERATOR Primary Care Provider + Jeremy Yang DO Unavailable [phone] Bella Duvall MD Unavailable Foreign Whitman MD Unavailable Reason for Visit * Reason Onset Date Comments MEDICATION REFILL 09/17/2023 Encounter Details Date Type Department Care Team (Late st Contact Info) Description 09/17/2023 Refill [facility] - Internal Med [facility], [place] [phone] Joselyn Boykin, CASE INVESTIGATOR-TIMBER TREATING TANK OPERATOR [facility] [phone] MEDICATION REFILL Social History Tobacco Use Types [...] Recorded Patient Health Questionnaire-2 Score 0 06/10/2023 [facility] [place] of Occupat ional Health - Occupational Stress [...] place to sleep or slept in a skilled nursing (including now)? No 04/03/2023 Comments No Sex and Gender Information Value Date Recorded Sex Assigned at Female 04/05/2023 10:09 AM CONVEYOR MECHANIC Legal Sex Female 5:20 PM CONVEYOR MECHANIC Gender Identity Female 04/05/2023 10:09 AM CONVEYOR MECHANIC Sexual Orientation Straight 04/05/2023 10 :09 AM CONVEYOR MECHANIC documented as of this encounter Functional Status * Is person deaf or have serious hearing difficulty? Answer Date of Assessment Author No 04/03/2023 8:27 PM CONVEYOR MECHANIC Malorie Mccarty rk, RN * Is person [...] 01/20/2025 11:00 AM CDT Office Visit [facility] - Internal Med [address] [place] [phone] Joselyn Boykin APRN-TIMBER TREATING TANK OPERATOR [address] [place] [phone] 01/20/2025 3:00 PM CDT Office Visit [facility] - Endocrinology [address] [place] [phone] Shabana Holder MD [address] [place] [address] 2L [place] [phone] documented as of this encounter Visit Diagnoses Not on filedocumented in this encounter Care Teams Economic Research Analyst Relationship Specialty Start Date End Date Joselyn Boykin APRN-CNP [address] [place] [phone] PCP - General Nurse Practitioner 06/01/23 Jeremy Yang DO [address] [place] [address] 2L DIV OF GEN INTERNAL MEDICINE [place], [place] Internal Medicine 11/03/23 Bella Duvall MD [address] [facility] INTERNAL MEDICINE [place], [place] Neurologist Neurology 11/03/23 Foreign Whitman MD [address] [place] [address] Neurologist Neurology 11/03/23 documented as of this encounter
--- NOTE | 2024-11-02 10:52 | ED.URI ---
HPI - URI/Sore Throat General Chief Complaint: Upper Respiratory Infection Stated Complaint: sinus infection Time Seen by Provider: 11/02/24 10:10 Source: patient and RN notes reviewed Mode of arrival: ambulatory Limitations: no limitations History of Present Illness HPI Narrative: 68-year-old female presents Express Care complaining of upper respiratory symptoms for approximately 2 weeks. Patient reports sinus congestion, dry cough my sore throat, chest congestion has not gotten better over the last 2 weeks. Patient denies any fevers, body aches, chills, nausea, vomiting, chest pains, chest pressure, chest pain with exertion, dizziness, lightheadedness, shortness of breath, difficulty breathing, diarrhea, or any other symptoms. Patient has been taking Mucinex without any relief. Patient has a history of high blood pressure and diabetes. Related Data Home Medications ?Medication ?Instructions ?Recorded ?Confirmed ?Last Taken ?Type atorvastatin 40 mg tablet 40 mg PO DAILY 08/30/22 01/23/24 Unknown History ergocalciferol (vitamin D2) 1,250 1,250 mcg PO WEEKLY 08/30/22 01/23/24 Unknown History mcg (50,000 unit) capsule levothyroxine 137 mcg tablet 137 mcg PO DAILY 08/30/22 01/23/24 Unknown History lisinopril 10 mg tablet 10 mg PO DAILY 08/30/22 01/23/24 Unknown History metformin 500 mg tablet,extended 2,000 mg PO DAILY 08/30/22 01/23/24 Unknown History release 24 hr omeprazole 40 mg capsule,delayed 40 mg PO DAILY 08/30/22 01/23/24 Unknown History release propranolol 80 mg tablet 80 mg PO BID 08/30/22 01/23/24 Unknown History terbinafine HCl 250 mg tablet 250 mg PO DAILY 08/30/22 01/23/24 Unknown History venlafaxine 75 mg capsule,extended 75 mg PO DAILY 08/30/22 01/23/24 Unknown History release 24 hr aspirin 81 mg chewable tablet 81 mg PO DAILY 07/15/23 01/23/24 Unknown History clopidogrel 75 mg tablet 75 mg PO DAILY 07/15/23 01/23/24 Unknown History famotidine 20 mg tablet 20 mg PO DAILY 07/15/23 01/23/24 Unknown History loratadine 10 mg tablet (Claritin) 10 mg PO DAILY 07/15/23 01/23/24 Unknown History pantoprazole 40 mg tablet,delayed 40 mg PO DAILY 07/15/23 01/23/24 Unknown History release empagliflozin 25 mg tablet 25 mg PO DAILY 01/23/24 01/23/24 Unknown History (Jardiance) Allergies Allergy/AdvReac Type Severity Reaction Status Date / Time Penicillins Allergy Mild Rash Verified 11/02/24 09:54 Review of Systems Review of Systems: CONSTITUTIONAL: Denies fever, chills, or sweats. EYES: Denies visual changes, redness, or discharge. ENT: Denies rhinorrhea, or otalgia. Positive sore throat, sinus pressure, congestion. CARDIOVASCULAR: Denies chest pain, chest pressure, chest pain with exertion, dizziness, lightheadedness palpitations, or edema. RESPIRATORY: Denies difficulty breathing, wheezing, or dyspnea. Positive for chest congestion and cough. GASTROINTESTINAL: Denies abdominal pain, nausea, vomiting, or diarrhea. GENITOURINARY: Denies dysuria or hematuria. SKIN: Denies rash or itching. MUSCULOSKELETAL: Denies back pain, joint pain, or myalgia. NEUROLOGIC: Denies headache, numbness, or weakness. PSYCHIATRIC: Denies anxiety or depression. All other systems reviewed are negative, except as documented in HPI. [facility] Past Medical History Medical History Adult hypothyroidism Age-related osteoporosis without current pathological fracture BMI 33.0-33.9,adult Back pain without radiation Benign essential hypertension Bilateral impacted cerumen Body mass index [BMI] 29.0-29.9, adult (01/04/19) Body mass index [BMI] 32.0-32.9, adult (11/27/16) Breast cancer screening Colon cancer screening DM w/o complication type II DM w/o complication type II, uncontrolled Dyslipidemia associated with type 2 diabetes mellitus Encounter for routine adult health examination without abnormal findings Familial tremor Gastroesophageal reflux disease with esophagitis Hypovitaminosis D Major depressive disorder with single episode, in full remission On correction drug therapy Other and unspecified hyperlipidemia Pre-operative clearance Radicular low back pain Seasonal allergies Upper respiratory tract infection Urinary tract infection without hematuria Menopause History of gastroesophageal reflux (GERD) delivery delivered GAYATHRI (obstructive sleep apnea) Osteoporosis Major depressive disorder Dyslipidemia Essential hypertension Surgical History Surgical History History of hysterectomy History of toe surgery Left great toe H/O section X3 Family History Family History Father Family history of diabetes mellitus in first degree relative Hypertension Sibling Family history of diabetes mellitus in first degree relative Mother Family history of emphysema Family history of chronic obstructive pulmonary disease Other Cerebrovascular accident Diabetes mellitus Social History Social History Smoking status: Former smoker Second hand tobacco smoke exposure: No Alcohol intake: current Alcohol use details: Occasional Substance use: never Lack of Transportation: No Lack of Food: Never True Current Housing: I Have Housing Concerned About Future Housing: No Difficulty Paying Gas/Electric Bills: No Difficulty Paying for Meds: YES Currently Unemployed: No Education: Master's Degree or Higher Difficulty w/ Childcare or Family Care: No Living arrangements: with family Occupation/Education: retired Gender identity (if verbalized by the patient): Female Comments At the time of my signature, I reviewed and agree with the nursing past medical, surgical, social, and family history. There is no relevant family history pertinent to the patient complaint. Exam Narrative: GENERAL: This is a well-nourished, well-developed adult, in no apparent distress. They are non ill-appearing, nontoxic appearing. HEAD: normocephalic, atraumatic. EYES: Sclera clear/white. Conjunctiva normal. Vision is grossly intact. Extraocular movements intact EARS: External ears normal, right auditory canal with excessive cerumen without redness, swelling, pain, or drainage, left auditory canal clear without redness, swelling, pain, or drainage. TMs normal without perforation. Hearing grossly intact. NOSE: External nose normal with no obvious nasal discharge, nasal turbinates erythematous, no rhinorrhea. Frontal maxillary sinus tenderness to palpation. THROAT: Mucous membranes moist, posterior pharynx boggy, without erythema or exudate. Uvula midline. Postnasal drip present. NECK: Neck supple, non-tender with mild cervical lymphadenopathy, masses or thyromegaly. CARDIOVASCULAR: Regular rate and rhythm without murmurs, gallops, or rubs. RESPIRATORY: Clear to auscultation. Breath sounds equal bilaterally. No wheezes, rales, or rhonchi. Respiratory rate normal, respiratory effort nonlabored, no respiratory distress GASTROINTESTINAL: Abdomen soft, non-tender, nondistended. Bowel sounds are active. No hepato-splenomegaly, or palpable masses. No guarding. SKIN: warm, Dry, intact with no suspicious lesions or rash, good texture and turgor. NEURO: awake, alert, and oriented to person, place and time. There were no obvious focal neurologic abnormalities. EXTREMITIES: No joint tenderness, effusion, or edema noted. BACK: Nontender without deformity. No CVA tenderness. Course Course Emergency Course: Portions of this record may have been created with voice recognition software Level of Care: Express Care Visit Vital Signs Vital signs: Vital Signs Temperature 96.8 F L 11/02/24 10:01 Pulse Rate 79 11/02/24 10:01 Respiratory Rate 18 11/02/24 10:01 Blood Pressure 134/75 11/02/24 10:01 Pulse Oximetry 98 11/02/24 10:01 Oxygen Delivery Room Air 11/02/24 10:01 Temperature 96.8 F L 11/02/24 10:01 Pulse Rate 79 11/02/24 10:01 Respiratory Rate 18 11/02/24 10:01 Blood Pressure 134/75 11/02/24 10:01 Pulse Oximetry 98 11/02/24 10:01 Oxygen Delivery Room Air 11/02/24 10:01 Reviewed MDM - URI/Sore Throat MDM Narrative Medical decision making narrative: Given patient's sleep this is likely she has developed a bacterial sinusitis. Patient has an allergy to penicillins. Will treat her with doxycycline. Discussed physical exam findings. Advised supportive measures and signs/symptoms to go to the ER. Pt is appropriate for outpt treatment and f/u. Differential Diagnosis Differential diagnosis: Likely upper respiratory infection, sinusitis, viral infection and other (Pneumonia) Critical Care Time Critical Care Time Critical Care Time: No Discharge Plan Discharge Clinical Impression: Sinusitis Patient Disposition: Home Condition: Stable Instructions: Antibiotic Form, Sinusitis (ED) Additional Instructions: Take the doxycycline as directed and complete the course even if you start to feel better. Please wear sunscreen if you are going to be outside while taking doxycycline. You may use a Neti pot saline rinse 3 times a day with lukewarm distilled water You may take Tylenol needed for pain or fevers. Follow the instructions on the bottle. Use a humidifier or vaporizer at night. Drink plenty of water. 8-10 glasses per day. Use flonase 2 times per day for 5 days then as needed Take mucinex 2 times per day and be sure to take with 8oz of water. Follow up with Primary provider in 3-5 days Please go to the ER if he develops any difficulty breathing, chest pains, nausea, vomiting, weakness, worsening symptoms, or any other serious concerns Patient Language: Kyrgyz Prescriptions: New doxycycline monohydrate 100 mg capsule 100 mg PO BID 7 Days Qty: 14 0RF No Action clopidogrel 75 mg tablet 75 mg PO DAILY famotidine 20 mg tablet 20 mg PO DAILY pantoprazole 40 mg tablet,delayed release (DR/EC) 40 mg PO DAILY aspirin 81 mg tablet,chewable 81 mg PO DAILY loratadine [Claritin] 10 mg Tablet 10 mg PO DAILY Jardiance 25 mg tablet 25 mg PO DAILY cephalexin 500 mg capsule 500 mg PO Q6H 7 Days Qty: 28 0RF atorvastatin 40 mg tablet 40 mg PO DAILY levothyroxine 137 mcg tablet 137 mcg PO DAILY venlafaxine 75 mg capsule,extended release 24hr 75 mg PO DAILY propranolol 80 mg tablet 80 mg PO BID omeprazole 40 mg capsule,delayed release(DR/EC) 40 mg PO DAILY terbinafine HCl 250 mg tablet 250 mg PO DAILY lisinopril 10 mg tablet 10 mg PO DAILY ergocalciferol (vitamin D2) 1,250 mcg (50,000 unit) capsule 1,250 mcg PO WEEKLY metformin 500 mg tablet extended release 24 hr 2,000 mg PO DAILY fluconazole 150 mg tablet 150 mg PO Q72H Qty: 2 0RF cephalexin 500 mg capsule 500 mg PO Q6H 7 Days Qty: 28 0RF (DME) OneTouch Ultra Blue Test Strip Strip See Rx Instructions .ROUTE .MEDSUPPLY Qty: 200 1RF Rx Instructions: Use to test blood sugar twice daily (DME) Dexcom G6 Concrete Pipe Machine Operator Misc See Rx Instructions .Route Qty: 1 0RF Rx Instructions: check blood sugar continuous (DME) Dexcom G6 Transmitter Device See Rx Instructions .Route Qty: 1 0RF Rx Instructions: check blood sugar continuous Follow-up/Referrals: Ashutosh,Joselyn [Other] Time of Disposition: 10:26
== END 2024-11-02 10:28 | disposition home or self-care (01) ==
DX: J32.9 Chronic sinusitis, unspecified (principal); Z87.891 Personal history of nicotine dependence; E03.9 Hypothyroidism, unspecified; M81.0 Age-related osteoporosis without current pathological fracture; I10 Essential (primary) hypertension; E11.9 Type 2 diabetes mellitus without complications; Z79.84 Long term (current) use of oral hypoglycemic drugs; E78.5 Hyperlipidemia, unspecified; K21.9 Gastro-esophageal reflux disease without esophagitis; E55.9 Vitamin D deficiency, unspecified; F32.5 Major depressive disorder, single episode, in full remission; Z79.82 Long term (current) use of aspirin
CPT/HCPCS: 99213; G0463

== ENCOUNTER 2025-01-05 12:19 | Outpatient (CLI) | payer MEDICARE, SELFPAY ==
--- NOTE | ~2025-01-05 | DEXA_ITS ---
Bone Density Report Name: JOSE LUIS TINOCO Age: 69 Sex: Female Ethnicity: White Date of : 1955 Indication: osteopenia; monitoring treatment; Referring Provider: DOM ALANIS Study: Bone densitometry was performed. Exam Date: January 05, 2025 Accession number: [id number] Bone Density: Region BMD T-score Z-score Classification AP Spine(L1-L4) 0.888 -1.4 0.7 Osteopenia Femoral Neck (Left) 0.542 -2.8 -0.9 Osteoporosis Total Hip (Left) 0.790 -1.2 0.3 Osteopenia Femoral Neck (Right) 0.587 -2.4 -0.5 Osteopenia Total Hip (Right) 0.777 -1.4 0.2 Osteopenia Total Hip Mean 0.784 -1.3 0.3 Osteopenia World Health Organization criteria for BMD impression classify patients as: Normal (T-score at or above -1.0), Osteopenia (T-score between -1.0 and -2.5), or Osteoporosis (T-score at or below -2.5). 10-year Fracture Risk: FRAX not reported because: Some T-score for Spine Total or Hip Total or Femoral Neck at or below -2.5 Treated for osteoporosis Previous Exams: -- Region Exam Age BMD T-score BMD Change BMD Change Date g/cm2 vs Baseline vs Previous -- AP Spine (L1-L4) 01/05/2025 69 0.888 -1.4 -2.7%* 4.5%* 10/03/2017 61 0.850 -1.8 -6.9%* -5.8%* 02/25/2010 54 0.902 -1.3 -1.2% -1.2% 03/11/2007 51 0.913 -1.2 Total Hip(Left) 01/05/2025 69 0.790 -1.2 -12.5%* 1.6% 04/30/2022 66 0.778 -1.3 -13.9%* -2.6% 10/28/2019 63 0.799 -1.2 -11.6%* -0.8% 10/03/2017 61 0.805 -1.1 -10.9%* -3.2% 02/25/2010 54 0.832 -0.9 -8.0%* -8.0%* 03/11/2007 51 0.903 -0.3 Total Hip(Right) 01/05/2025 69 0.777 -1.4 -19.7%* 2.4% 04/30/2022 66 0.758 -1.5 -21.6%* -3.5%* 10/28/2019 63 0.786 -1.3 -18.7%* 0.9% 10/03/2017 61 0.779 -1.3 -19.4%* -11.7%* 02/25/2010 54 0.882 -0.5 -8.8%* -8.8%* 03/11/2007 51 0.967 0.2 -- *Denotes significance at 95% confidence level, LSC for AP Spine = 0.022 g/cm2, LSC for Total Hip = 0.027 g/cm2 Clinical Information Provided by Patient: Is being treated for osteoporosis Has used the following medications: Reclast (i.e. zoledronate), Vitamin D Patient maximum height was 65 Menopause Age: 53 No regular weight bearing exercise Drinks caffeinated beverages Onset of menses at age 10 Number of children 3 Impression: The patient has osteoporosis, based on the Left Femoral Neck T-score. No significant bone loss was observed. Discussion: PATIENT UNDER TREATMENT WITH NO SIGNIFICANT BMD LOSS SINCE LAST EXAM. In an untreated patient, BMD typically declines with age. A lack of decline or gain is usually a sign that treatment is efficacious and fracture risk is reduced. It is important to ask patients whether they are taking their medications and to encourage continued and appropriate compliance with their osteoporosis therapies to reduce fracture risk. It is also important to review their risk factors and encourage appropriate calcium and vitamin D intakes, exercise, fall prevention and other lifestyle measures. Follow-Up: Consider a repeat BMD and Vertebral Fracture Assessment (VFA) exam in 2 years or sooner if medically necessary, to reassess this patient's status. Reported by: NAIF on 01/05/2025 1:14:00 PM. Reviewed, dictated and finalized at location A.
--- NOTE | ~2025-01-05 | MM_ITS ---
EXAMINATION: MM screening neri BI w abdifatah HISTORY: Screening TECHNIQUE: Craniocaudal and mediolateral oblique 3-D tomosynthesis images were obtained and synthetic 2-D images were generated. CAD analysis was submitted and interpreted. COMPARISON: 04/30/2022 BREAST PARENCHYMAL COMPOSITION: Not Dense: The breasts are almost entirely fatty. FINDINGS: There is no evidence of suspicious mass, calcification, or architectural distortion to suggest malignancy. There has been no suspicious interval change. IMPRESSION: 1. No mammographic evidence of malignancy. Recommend routine screening mammography in one year. BI-RADS Category 2: Benign finding(s) Reviewed, dictated and finalized at location Q. IMPRESSION: 1. No mammographic evidence of malignancy. Recommend routine screening mammogra phy in one year. BI-RADS Category 2: Benign finding(s)
== END 2025-01-05 12:20 | disposition home or self-care (01) ==
LOC: MICIMG 12:22
PROVIDERS: Visit Provider Obstetrics & Gynecology Gynecology
DX: Z12.31 Encounter for screening mammogram for malignant neoplasm of breast (principal); Z78.0 Asymptomatic menopausal state; M85.88 Other specified disorders of bone density and structure, other site; M81.0 Age-related osteoporosis without current pathological fracture; M85.852 Other specified disorders of bone density and structure, left thigh; M85.851 Other specified disorders of bone density and structure, right thigh
CPT/HCPCS: 77063; 77067; 77080